=== PATIENT | male | born 1955 | race Caucasian/White ===

== ENCOUNTER 2019-09-20 08:10 | Emergency (ER) | payer OTHER ==
--- OUTSIDE RECORDS SUMMARY | 2019-09-20 08:27 | XMS REPORT ---
:1955 [facility] Address [address] [place] [address] Care Team Providers Name Role Phone EVANS MOSES Unavailable Unavailable ELIAS GARCIA Unavailable Unavailable SHADIA MISHRA Unavailable Unavailable SEPIDEH FIELDS Unavailable Unavailable Problems This patient has no known problems. Allergies, Adverse Reactions, Alerts This patient has no known allergies or adverse reactions. Medications This patient has no known medications. Results Test Description Test Time Test Comments Text Results Atomic Results Result Comments CMV PCR, QUANTITATIVE 2019-09-16 17:50:00 Test Item Value Reference Range Comments CMV VIRAL LOAD - NEGATIVE Negative or below the linear <375- >375,000 copies/ mL (BEAKER) (test yotv=3764) range of the assay (<375 copies/mL) Cytomegalovirus (CMV) infection can cause significant disease in immunosuppressed patients. However,it is common for CMV to manifest as a limited infection which is of no clinical significance in immunosuppressed patients or in healthy individuals.Viral load measurements are helpful to identify clinical CMV infection and to guide the pre-emptive management of antiviral therapy. For treatment of CMVinfection due to reactivation in transplant recipients, a threshold between 4,000 and 5,000 copies/mL is suggested. For treatment of primary CMV infection, a lower threshold can be used.CMV infection may also be monitored using weekly serial measurements. Serial measurements of CMV DNA viral load canbe evaluated by identifying a 10- fold change, as well as assessing the CMV DNA viral load and the clinical context for each patient.The plasma CMV DNA viral load was detected using quantitative polymerase chain reaction and fluorescent monitoring of a specific hybridized probe. Genetic variation and other factors can affect the accuracy of nucleic acid testing. Therefore, the results should be interpreted in light of clinical data. A negative result may not exclude the presence of CMV disease.This test was developed and its performance characteristics determined by the [facility] Pathology Department, Section of Molecular Pathology. It has not been cleared or approved by the U.S. Food and Drug Administration (FDA), since FDA approval is not required for clinical use of the test. Validation was done as required by The Clinical Laboratory Improvement Amendments of 1988.TACROLIMUS [id number] 12:09:00 Test Item Value Reference Range Comments TACROLIMUS BLOOD (BEAKER) (test ytoy=903) 7.5 ng/mL 10.0-20.0 Travel Journalist ID - [id number] 10:22:00 Test Item Value Reference Range Comments MAGNESIUM (BEAKER) (test ldqg=930) 1.9 mg/dL 1.6-2.6 Travel Journalist ID - BSCOMPREHENSIVE METABOLIC [id number] 10:22:00 Test Item Value Reference Range Comments TOTAL PROTEIN (BEAKER) 6.2 gm/dL 6.0-8.3 (test mrep=551) ALBUMIN (BEAKER) (test 4.1 g/dL 3.5-5.0 hith=7837) ALKALINE PHOSPHATASE 87 U/L 40-150 (BEAKER) (test qndc=127) BILIRUBIN TOTAL (BEAKER) 1.1 mg/dL 0.2-1.2 (test hebl=220) SODIUM (BEAKER) (test 137 meq/L 136-145 llxf=007) POTASSIUM (BEAKER) (test 3.5 meq/L 3.5-5.1 lcie=708) CHLORIDE (BEAKER) (test 100 meq/L 98-107 oxjt=267) CO2 (BEAKER) (test 28 meq/L 22-29 grzl=107) BLOOD UREA NITROGEN 17 mg/dL 7-21 (BEAKER) (test wybe=246) CREATININE (BEAKER) (test 1.03 mg/dL 0.57-1.25 oeib=077) GLUCOSE RANDOM (BEAKER) 90 mg/dL 70-105 (test xcxz=127) CALCIUM (BEAKER) (test 9.2 mg/dL 8.4-10.2 lhfq=433) AST (SGOT) (BEAKER) (test 32 U/L 5-34 jwce=217) ALT (SGPT) (BEAKER) (test 66 U/L 6-55 aulr=472) EGFR (BEAKER) (test 73 mL/min/1.73 sq m ESTIMATED GFR IS NOT rwyr=4900) ACCURATE CREATININE CLEARANCE IN PREDICTING GLOMERULAR FILTRATION RATE. ESTIMATED GFR IS NOT APPLICABLE FOR DIALYSIS PATIENTS. Travel Journalist ID - BSBILIRUBIN, [id number] 10:22:00 Test Item Value Reference Range Comments BILIRUBIN DIRECT (BEAKER) (test hfcx=696) 0.6 mg/dL 0.1-0.5 Travel Journalist ID - BSCBC W/PLT COUNT & AUTO [id number] 09:23:00 Test Item Value Reference Range Comments WHITE BLOOD CELL COUNT (BEAKER) (test vynn=984) 8.1 K/ L 3.5-10.5 RED BLOOD CELL COUNT (BEAKER) (test xwot=693) 4.59 M/ L 4.63-6.08 HEMOGLOBIN (BEAKER) (test hydn=714) 14.7 GM/DL 13.7-17.5 HEMATOCRIT (BEAKER) (test yidx=273) 44.2 % 40.1-51.0 MEAN CORPUSCULAR VOLUME (BEAKER) (test eyno=543) 96.3 fL 79.0-92.2 MEAN CORPUSCULAR HEMOGLOBIN (BEAKER) (test 32.0 pg 25.7-32.2 fasi=591) MEAN CORPUSCULAR HEMOGLOBIN CONC (BEAKER) (test 33.3 GM/DL 32.3-36.5 xsxg=855) RED CELL DISTRIBUTION WIDTH (BEAKER) (test 14.5 % 11.6-14.4 inhz=914) PLATELET COUNT (BEAKER) (test marm=081) 218 K/CU MM 150-450 MEAN PLATELET VOLUME (BEAKER) (test vwtw=113) 10.7 fL 9.4-12.4 NUCLEATED RED BLOOD CELLS (BEAKER) (test 0 /100 WBC 0-0 bouw=307) NEUTROPHILS RELATIVE PERCENT (BEAKER) (test 65 % mltn=044) LYMPHOCYTES RELATIVE PERCENT (BEAKER) (test 28 % pwjd=185) MONOCYTES RELATIVE PERCENT (BEAKER) (test 4 % ifzn=126) EOSINOPHILS RELATIVE PERCENT (BEAKER) (test 0 % nlhp=346) BASOPHILS RELATIVE PERCENT (BEAKER) (test 0 % sccf=173) NEUTROPHILS ABSOLUTE COUNT (BEAKER) (test 5.29 K/ L 1.78-5.38 ccru=427) LYMPHOCYTES ABSOLUTE COUNT (BEAKER) (test 2.28 K/ L 1.32-3.57 anry=398) MONOCYTES ABSOLUTE COUNT (BEAKER) (test 0.35 K/ L 0.30-0.82 ujkh=638) EOSINOPHILS ABSOLUTE COUNT (BEAKER) (test 0.00 K/ L 0.04-0.54 viio=456) BASOPHILS ABSOLUTE COUNT (BEAKER) (test 0.03 K/ L 0.01-0.08 qsuz=055) IMMATURE GRANULOCYTES-RELATIVE PERCENT (BEAKER) 2 % 0-1 (test psjp=2879) TACROLIMUS [id number] 14:18:00 Test Item Value Reference Range Comments TACROLIMUS BLOOD (BEAKER) (test ludz=185) 7.2 ng/mL 10.0-20.0 Travel Journalist ID - LEW [id number] 08:30:00 Test Item Value Reference Range Comments MAGNESIUM (BEAKER) (test wlze=098) 1.8 mg/dL 1.6-2.6 Travel Journalist ID - TONEY LCOMPREHENSIVE METABOLIC [id number] 08:30:00 Test Item Value Reference Range Comments TOTAL PROTEIN (BEAKER) 5.9 gm/dL 6.0-8.3 (test lufm=938) ALBUMIN (BEAKER) (test 3.9 g/dL 3.5-5.0 htoz=0818) ALKALINE PHOSPHATASE 85 U/L 40-150 (BEAKER) (test ixkd=128) BILIRUBIN TOTAL (BEAKER) 1.2 mg/dL 0.2-1.2 (test nnwc=325) SODIUM (BEAKER) (test 136 meq/L 136-145 vtdf=358) POTASSIUM (BEAKER) (test 3.2 meq/L 3.5-5.1 sgkg=749) CHLORIDE (BEAKER) (test 100 meq/L 98-107 rvrf=700) CO2 (BEAKER) (test 28 meq/L 22-29 ycho=396) BLOOD UREA NITROGEN 13 mg/dL 7-21 (BEAKER) (test hsxn=663) CREATININE (BEAKER) (test 0.95 mg/dL 0.57-1.25 utjg=727) GLUCOSE RANDOM (BEAKER) 169 mg/dL 70-105 (test urap=020) CALCIUM (BEAKER) (test 8.7 mg/dL 8.4-10.2 tbxa=976) AST (SGOT) (BEAKER) (test 27 U/L 5-34 qhmp=318) ALT (SGPT) (BEAKER) (test 59 U/L 6-55 dyel=703) EGFR (BEAKER) (test 80 mL/min/1.73 sq m ESTIMATED GFR IS NOT vwlx=3417) ACCURATE CREATININE CLEARANCE IN PREDICTING GLOMERULAR FILTRATION RATE. ESTIMATED GFR IS NOT APPLICABLE FOR DIALYSIS PATIENTS. Travel Journalist ALECIA HOUSERTIMI LBILIRUBIN, [id number] 08:30:00 Test Item Value Reference Range Comments BILIRUBIN DIRECT (BEAKER) (test hfsi=181) 0.6 mg/dL 0.1-0.5 Travel Journalist ALECIA HOUSERTIMI LCBC W/PLT COUNT & AUTO [id number] 08:02:00 Test Item Value Reference Range Comments WHITE BLOOD CELL COUNT (BEAKER) (test vkap=769) 7.6 K/ L 3.5-10.5 RED BLOOD CELL COUNT (BEAKER) (test worm=923) 4.35 M/ L 4.63-6.08 HEMOGLOBIN (BEAKER) (test yibn=893) 13.9 GM/DL 13.7-17.5 HEMATOCRIT (BEAKER) (test vbrr=086) 41.0 % 40.1-51.0 MEAN CORPUSCULAR VOLUME (BEAKER) (test qvsk=028) 94.3 fL 79.0-92.2 MEAN CORPUSCULAR HEMOGLOBIN (BEAKER) (test 32.0 pg 25.7-32.2 fydz=438) MEAN CORPUSCULAR HEMOGLOBIN CONC (BEAKER) (test 33.9 GM/DL 32.3-36.5 rvyw=606) RED CELL DISTRIBUTION WIDTH (BEAKER) (test 14.5 % 11.6-14.4 rqrn=273) PLATELET COUNT (BEAKER) (test qsax=381) 192 K/CU MM 150-450 MEAN PLATELET VOLUME (BEAKER) (test mtfb=381) 10.5 fL 9.4-12.4 NUCLEATED RED BLOOD CELLS (BEAKER) (test 0 /100 WBC 0-0 numu=439) NEUTROPHILS RELATIVE PERCENT (BEAKER) (test 68 % zajb=205) LYMPHOCYTES RELATIVE PERCENT (BEAKER) (test 25 % euea=931) MONOCYTES RELATIVE PERCENT (BEAKER) (test 6 % orov=338) EOSINOPHILS RELATIVE PERCENT (BEAKER) (test 0 % jhcv=202) BASOPHILS RELATIVE PERCENT (BEAKER) (test 1 % rgls=676) NEUTROPHILS ABSOLUTE COUNT (BEAKER) (test 5.17 K/ L 1.78-5.38 hxnx=850) LYMPHOCYTES ABSOLUTE COUNT (BEAKER) (test 1.86 K/ L 1.32-3.57 qzcd=325) MONOCYTES ABSOLUTE COUNT (BEAKER) (test 0.42 K/ L 0.30-0.82 mmcs=088) EOSINOPHILS ABSOLUTE COUNT (BEAKER) (test 0.00 K/ L 0.04-0.54 oihb=754) BASOPHILS ABSOLUTE COUNT (BEAKER) (test 0.04 K/ L 0.01-0.08 avay=237) IMMATURE GRANULOCYTES-RELATIVE PERCENT (BEAKER) 1 % 0-1 (test ksom=5088) TACROLIMUS [id number] 11:51:00 Test Item Value Reference Range Comments TACROLIMUS BLOOD (BEAKER) (test sasg=924) 7.2 ng/mL 10.0-20.0 Travel Journalist ID - [id number] 09:36:00 Test Item Value Reference Range Comments MAGNESIUM (BEAKER) (test flom=730) 2.1 mg/dL 1.6-2.6 Travel Journalist ID - DBCOMPREHENSIVE METABOLIC [id number] 09:36:00 Test Item Value Reference Range Comments TOTAL PROTEIN (BEAKER) 5.9 gm/dL 6.0-8.3 (test qokg=224) ALBUMIN (BEAKER) (test 3.8 g/dL 3.5-5.0 otgf=5562) ALKALINE PHOSPHATASE 94 U/L 40-150 (BEAKER) (test zkud=567) BILIRUBIN TOTAL (BEAKER) 1.1 mg/dL 0.2-1.2 (test owdx=207) SODIUM (BEAKER) (test 135 meq/L 136-145 coxj=501) POTASSIUM (BEAKER) (test 3.3 meq/L 3.5-5.1 xbqa=992) CHLORIDE (BEAKER) (test 98 meq/L 98-107 sitd=822) CO2 (BEAKER) (test 29 meq/L 22-29 hgxw=687) BLOOD UREA NITROGEN 20 mg/dL 7-21 (BEAKER) (test bvne=756) CREATININE (BEAKER) (test 1.20 mg/dL 0.57-1.25 rrrl=576) GLUCOSE RANDOM (BEAKER) 178 mg/dL 70-105 (test opyj=399) CALCIUM (BEAKER) (test 8.9 mg/dL 8.4-10.2 bxod=675) AST (SGOT) (BEAKER) (test 24 U/L 5-34 maif=097) ALT (SGPT) (BEAKER) (test 41 U/L 6-55 ceeh=823) EGFR (BEAKER) (test 61 mL/min/1.73 sq m ESTIMATED GFR IS NOT znjl=6317) ACCURATE CREATININE CLEARANCE IN PREDICTING GLOMERULAR FILTRATION RATE. ESTIMATED GFR IS NOT APPLICABLE FOR DIALYSIS PATIENTS. Travel Journalist ID - DBBILIRUBIN, [id number] 09:36:00 Test Item Value Reference Range Comments BILIRUBIN DIRECT (BEAKER) (test xvnl=341) 0.5 mg/dL 0.1-0.5 Travel Journalist ID - DBCBC W/PLT COUNT & AUTO [id number] 09:08:00 Test Item Value Reference Range Comments WHITE BLOOD CELL COUNT (BEAKER) (test vysh=402) 8.7 K/ L 3.5-10.5 RED BLOOD CELL COUNT (BEAKER) (test qagi=698) 4.27 M/ L 4.63-6.08 HEMOGLOBIN (BEAKER) (test rfdy=458) 13.7 GM/DL 13.7-17.5 HEMATOCRIT (BEAKER) (test itsw=008) 40.1 % 40.1-51.0 MEAN CORPUSCULAR VOLUME (BEAKER) (test abfv=855) 93.9 fL 79.0-92.2 MEAN CORPUSCULAR HEMOGLOBIN (BEAKER) (test 32.1 pg 25.7-32.2 jgdk=167) MEAN CORPUSCULAR HEMOGLOBIN CONC (BEAKER) (test 34.2 GM/DL 32.3-36.5 uodx=962) RED CELL DISTRIBUTION WIDTH (BEAKER) (test 14.6 % 11.6-14.4 jhrc=486) PLATELET COUNT (BEAKER) (test gycd=885) 196 K/CU MM 150-450 MEAN PLATELET VOLUME (BEAKER) (test jgxu=056) 10.7 fL 9.4-12.4 NUCLEATED RED BLOOD CELLS (BEAKER) (test 0 /100 WBC 0-0 whem=085) NEUTROPHILS RELATIVE PERCENT (BEAKER) (test 73 % ewmq=567) LYMPHOCYTES RELATIVE PERCENT (BEAKER) (test 20 % kujs=516) MONOCYTES RELATIVE PERCENT (BEAKER) (test 5 % vcrt=679) EOSINOPHILS RELATIVE PERCENT (BEAKER) (test 0 % dhsw=043) BASOPHILS RELATIVE PERCENT (BEAKER) (test 1 % izcp=500) NEUTROPHILS ABSOLUTE COUNT (BEAKER) (test 6.41 K/ L 1.78-5.38 lyos=180) LYMPHOCYTES ABSOLUTE COUNT (BEAKER) (test 1.78 K/ L 1.32-3.57 zxbb=328) MONOCYTES ABSOLUTE COUNT (BEAKER) (test 0.39 K/ L 0.30-0.82 gedp=669) EOSINOPHILS ABSOLUTE COUNT (BEAKER) (test 0.00 K/ L 0.04-0.54 kjmt=954) BASOPHILS ABSOLUTE COUNT (BEAKER) (test 0.06 K/ L 0.01-0.08 vfyk=379) IMMATURE GRANULOCYTES-RELATIVE PERCENT (BEAKER) 1 % 0-1 (test ebfi=9922) TACROLIMUS [id number] 10:35:00 Test Item Value Reference Range Comments TACROLIMUS BLOOD (BEAKER) (test yzrv=132) 10.2 ng/mL 10.0-20.0 [id number] 10:16:00 Test Item Value Reference Range Comments MAGNESIUM (BEAKER) (test vbew=462) 1.7 mg/dL 1.6-2.6 COMPREHENSIVE METABOLIC [id number] 10:16:00 Test Item Value Reference Range Comments TOTAL PROTEIN (BEAKER) 5.9 gm/dL 6.0-8.3 (test jvsy=720) ALBUMIN (BEAKER) (test 3.8 g/dL 3.5-5.0 vskl=9357) ALKALINE PHOSPHATASE 99 U/L 40-150 (BEAKER) (test hwmo=382) BILIRUBIN TOTAL (BEAKER) 0.8 mg/dL 0.2-1.2 (test qwyz=504) SODIUM (BEAKER) (test 137 meq/L 136-145 isoc=673) POTASSIUM (BEAKER) (test 3.7 meq/L 3.5-5.1 afyw=632) CHLORIDE (BEAKER) (test 99 meq/L 98-107 bigh=937) CO2 (BEAKER) (test 31 meq/L 22-29 uoxg=599) BLOOD UREA NITROGEN 22 mg/dL 7-21 (BEAKER) (test xami=459) CREATININE (BEAKER) (test 1.03 mg/dL 0.57-1.25 hier=765) GLUCOSE RANDOM (BEAKER) 78 mg/dL 70-105 (test ujqz=772) CALCIUM (BEAKER) (test 8.9 mg/dL 8.4-10.2 laar=976) AST (SGOT) (BEAKER) (test 19 U/L 5-34 iyqp=852) ALT (SGPT) (BEAKER) (test 39 U/L 6-55 tgya=719) EGFR (BEAKER) (test 73 mL/min/1.73 sq m ESTIMATED GFR IS NOT chbk=8672) ACCURATE CREATININE CLEARANCE IN PREDICTING GLOMERULAR FILTRATION RATE. ESTIMATED GFR IS NOT APPLICABLE FOR DIALYSIS PATIENTS. BILIRUBIN, [id number] 10:16:00 Test Item Value Reference Range Comments BILIRUBIN DIRECT (BEAKER) (test evfm=634) 0.4 mg/dL 0.1-0.5 CBC W/PLT COUNT & AUTO [id number] 08:48:00 Test Item Value Reference Range Comments WHITE BLOOD CELL COUNT (BEAKER) (test grkk=918) 10.3 K/ L 3.5-10.5 RED BLOOD CELL COUNT (BEAKER) (test imur=637) 4.32 M/ L 4.63-6.08 HEMOGLOBIN (BEAKER) (test yuos=986) 13.9 GM/DL 13.7-17.5 HEMATOCRIT (BEAKER) (test wcdk=828) 39.9 % 40.1-51.0 MEAN CORPUSCULAR VOLUME (BEAKER) (test zsjs=637) 92.4 fL 79.0-92.2 MEAN CORPUSCULAR HEMOGLOBIN (BEAKER) (test 32.2 pg 25.7-32.2 djsc=167) MEAN CORPUSCULAR HEMOGLOBIN CONC (BEAKER) (test 34.8 GM/DL 32.3-36.5 uyui=694) RED CELL DISTRIBUTION WIDTH (BEAKER) (test 14.5 % 11.6-14.4 ycro=657) PLATELET COUNT (BEAKER) (test koco=110) 180 K/CU MM 150-450 MEAN PLATELET VOLUME (BEAKER) (test geit=745) 11.0 fL 9.4-12.4 NUCLEATED RED BLOOD CELLS (BEAKER) (test 0 /100 WBC 0-0 cwwj=494) NEUTROPHILS RELATIVE PERCENT (BEAKER) (test 79 % cols=652) LYMPHOCYTES RELATIVE PERCENT (BEAKER) (test 16 % wcfo=421) MONOCYTES RELATIVE PERCENT (BEAKER) (test 4 % atpj=532) EOSINOPHILS RELATIVE PERCENT (BEAKER) (test 0 % dhft=602) BASOPHILS RELATIVE PERCENT (BEAKER) (test 0 % htwe=984) NEUTROPHILS ABSOLUTE COUNT (BEAKER) (test 8.15 K/ L 1.78-5.38 segw=583) LYMPHOCYTES ABSOLUTE COUNT (BEAKER) (test 1.61 K/ L 1.32-3.57 cpwt=925) MONOCYTES ABSOLUTE COUNT (BEAKER) (test 0.46 K/ L 0.30-0.82 hcoy=650) EOSINOPHILS ABSOLUTE COUNT (BEAKER) (test 0.00 K/ L 0.04-0.54 fcyb=230) BASOPHILS ABSOLUTE COUNT (BEAKER) (test 0.04 K/ L 0.01-0.08 mwjk=840) IMMATURE GRANULOCYTES-RELATIVE PERCENT (BEAKER) 1 % 0-1 (test fpad=1137) TACROLIMUS [id number] 15:50:00 Test Item Value Reference Range Comments TACROLIMUS BLOOD (BEAKER) (test sozw=629) 11.4 ng/mL 10.0-20.0 COMPREHENSIVE METABOLIC [id number] 12:15:00 Test Item Value Reference Range Comments TOTAL PROTEIN (BEAKER) 5.5 gm/dL 6.0-8.3 (test fjzt=206) ALBUMIN (BEAKER) (test 3.5 g/dL 3.5-5.0 fmxd=6031) ALKALINE PHOSPHATASE 102 U/L 40-150 (BEAKER) (test dalz=370) BILIRUBIN TOTAL (BEAKER) 1.1 mg/dL 0.2-1.2 (test qeti=174) SODIUM (BEAKER) (test 135 meq/L 136-145 rntq=989) POTASSIUM (BEAKER) (test 3.4 meq/L 3.5-5.1 mnwc=753) CHLORIDE (BEAKER) (test 99 meq/L 98-107 kdsc=987) CO2 (BEAKER) (test 27 meq/L 22-29 mcai=096) BLOOD UREA NITROGEN 14 mg/dL 7-21 (BEAKER) (test cvxn=356) CREATININE (BEAKER) (test 1.02 mg/dL 0.57-1.25 uycr=859) GLUCOSE RANDOM (BEAKER) 142 mg/dL 70-105 (test vmcy=186) CALCIUM (BEAKER) (test 8.5 mg/dL 8.4-10.2 myom=129) AST (SGOT) (BEAKER) (test 25 U/L 5-34 fsjp=112) ALT (SGPT) (BEAKER) (test 55 U/L 6-55 zusc=725) EGFR (BEAKER) (test 74 mL/min/1.73 sq m ESTIMATED GFR IS NOT stoq=0910) ACCURATE CREATININE CLEARANCE IN PREDICTING GLOMERULAR FILTRATION RATE. ESTIMATED GFR IS NOT APPLICABLE FOR DIALYSIS PATIENTS. [id number] 12:13:00 Test Item Value Reference Range Comments MAGNESIUM (BEAKER) (test kyfz=109) 1.6 mg/dL 1.6-2.6 [id number] 12:13:00 Test Item Value Reference Range Comments PHOSPHORUS (BEAKER) (test nlol=162) 2.9 mg/dL 2.3-4.7 BILIRUBIN, [id number] 12:13:00 Test Item Value Reference Range Comments BILIRUBIN DIRECT (BEAKER) (test pdpq=550) 0.5 mg/dL 0.1-0.5 CBC W/PLT COUNT & AUTO [id number] 11:00:00 Test Item Value Reference Range Comments WHITE BLOOD CELL COUNT (BEAKER) (test khsd=154) 9.6 K/ L 3.5-10.5 RED BLOOD CELL COUNT (BEAKER) (test vpmu=063) 4.17 M/ L 4.63-6.08 HEMOGLOBIN (BEAKER) (test iqjg=533) 13.4 GM/DL 13.7-17.5 HEMATOCRIT (BEAKER) (test dctp=662) 38.6 % 40.1-51.0 MEAN CORPUSCULAR VOLUME (BEAKER) (test wnal=908) 92.6 fL 79.0-92.2 MEAN CORPUSCULAR HEMOGLOBIN (BEAKER) (test 32.1 pg 25.7-32.2 pdvz=386) MEAN CORPUSCULAR HEMOGLOBIN CONC (BEAKER) (test 34.7 GM/DL 32.3-36.5 zufj=165) RED CELL DISTRIBUTION WIDTH (BEAKER) (test 14.5 % 11.6-14.4 nkvq=153) PLATELET COUNT (BEAKER) (test zyhc=392) 167 K/CU MM 150-450 MEAN PLATELET VOLUME (BEAKER) (test lglz=975) 11.9 fL 9.4-12.4 NUCLEATED RED BLOOD CELLS (BEAKER) (test 0 /100 WBC 0-0 gjez=769) NEUTROPHILS RELATIVE PERCENT (BEAKER) (test 74 % ukxl=844) LYMPHOCYTES RELATIVE PERCENT (BEAKER) (test 19 % cifd=128) MONOCYTES RELATIVE PERCENT (BEAKER) (test 5 % cyge=558) EOSINOPHILS RELATIVE PERCENT (BEAKER) (test 0 % qgyp=154) BASOPHILS RELATIVE PERCENT (BEAKER) (test 1 % wsdr=412) NEUTROPHILS ABSOLUTE COUNT (BEAKER) (test 7.07 K/ L 1.78-5.38 luta=498) LYMPHOCYTES ABSOLUTE COUNT (BEAKER) (test 1.87 K/ L 1.32-3.57 pyan=661) MONOCYTES ABSOLUTE COUNT (BEAKER) (test 0.52 K/ L 0.30-0.82 lpbg=678) EOSINOPHILS ABSOLUTE COUNT (BEAKER) (test 0.00 K/ L 0.04-0.54 eeus=776) BASOPHILS ABSOLUTE COUNT (BEAKER) (test 0.06 K/ L 0.01-0.08 idev=072) IMMATURE GRANULOCYTES-RELATIVE PERCENT (BEAKER) 1 % 0-1 (test pvih=8984) TACROLIMUS [id number] 11:07:00 Test Item Value Reference Range Comments TACROLIMUS BLOOD (BEAKER) (test bqkf=098) 12.1 ng/mL 10.0-20.0 [id number] 09:07:00 Test Item Value Reference Range Comments MAGNESIUM (BEAKER) (test exqy=609) 1.6 mg/dL 1.6-2.6 COMPREHENSIVE METABOLIC [id number] 09:07:00 Test Item Value Reference Range Comments TOTAL PROTEIN (BEAKER) 5.6 gm/dL 6.0-8.3 (test wpuc=079) ALBUMIN (BEAKER) (test 3.6 g/dL 3.5-5.0 mgdu=3625) ALKALINE PHOSPHATASE 117 U/L 40-150 (BEAKER) (test lsij=611) BILIRUBIN TOTAL (BEAKER) 1.5 mg/dL 0.2-1.2 (test qpgz=192) SODIUM (BEAKER) (test 136 meq/L 136-145 xlor=794) POTASSIUM (BEAKER) (test 3.7 meq/L 3.5-5.1 ktgn=931) CHLORIDE (BEAKER) (test 101 meq/L 98-107 aozg=079) CO2 (BEAKER) (test 26 meq/L 22-29 tzlx=190) BLOOD UREA NITROGEN 19 mg/dL 7-21 (BEAKER) (test aupt=394) CREATININE (BEAKER) (test 0.86 mg/dL 0.57-1.25 vuvi=352) GLUCOSE RANDOM (BEAKER) 84 mg/dL 70-105 (test mgzv=462) CALCIUM (BEAKER) (test 8.5 mg/dL 8.4-10.2 yvhm=842) AST (SGOT) (BEAKER) (test 30 U/L 5-34 ozgd=876) ALT (SGPT) (BEAKER) (test 64 U/L 6-55 mrpb=416) EGFR (BEAKER) (test 90 mL/min/1.73 sq m ESTIMATED GFR IS NOT vfzv=0279) ACCURATE CREATININE CLEARANCE IN PREDICTING GLOMERULAR FILTRATION RATE. ESTIMATED GFR IS NOT APPLICABLE FOR DIALYSIS PATIENTS. BILIRUBIN, [id number] 09:07:00 Test Item Value Reference Range Comments BILIRUBIN DIRECT (BEAKER) (test zxwo=853) 0.6 mg/dL 0.1-0.5 CBC W/PLT COUNT & AUTO [id number] 08:43:00 Test Item Value Reference Range Comments WHITE BLOOD CELL COUNT (BEAKER) (test niyo=743) 11.6 K/ L 3.5-10.5 RED BLOOD CELL COUNT (BEAKER) (test sdzt=643) 4.32 M/ L 4.63-6.08 HEMOGLOBIN (BEAKER) (test dtxp=232) 13.5 GM/DL 13.7-17.5 HEMATOCRIT (BEAKER) (test nmom=450) 39.8 % 40.1-51.0 MEAN CORPUSCULAR VOLUME (BEAKER) (test pkel=703) 92.1 fL 79.0-92.2 MEAN CORPUSCULAR HEMOGLOBIN (BEAKER) (test 31.3 pg 25.7-32.2 qfga=154) MEAN CORPUSCULAR HEMOGLOBIN CONC (BEAKER) (test 33.9 GM/DL 32.3-36.5 pjrf=084) RED CELL DISTRIBUTION WIDTH (BEAKER) (test 14.3 % 11.6-14.4 dtxp=259) PLATELET COUNT (BEAKER) (test rnbh=945) 154 K/CU MM 150-450 MEAN PLATELET VOLUME (BEAKER) (test mjie=076) 11.0 fL 9.4-12.4 NUCLEATED RED BLOOD CELLS (BEAKER) (test 0 /100 WBC 0-0 dajq=690) NEUTROPHILS RELATIVE PERCENT (BEAKER) (test 78 % gcsn=381) LYMPHOCYTES RELATIVE PERCENT (BEAKER) (test 17 % ltga=581) MONOCYTES RELATIVE PERCENT (BEAKER) (test 4 % kytf=940) EOSINOPHILS RELATIVE PERCENT (BEAKER) (test 0 % mqst=562) BASOPHILS RELATIVE PERCENT (BEAKER) (test 1 % lcpq=881) NEUTROPHILS ABSOLUTE COUNT (BEAKER) (test 9.03 K/ L 1.78-5.38 mjbw=949) LYMPHOCYTES ABSOLUTE COUNT (BEAKER) (test 1.95 K/ L 1.32-3.57 kasa=513) MONOCYTES ABSOLUTE COUNT (BEAKER) (test 0.46 K/ L 0.30-0.82 icqs=105) EOSINOPHILS ABSOLUTE COUNT (BEAKER) (test 0.00 K/ L 0.04-0.54 mnnv=649) BASOPHILS ABSOLUTE COUNT (BEAKER) (test 0.07 K/ L 0.01-0.08 pgtc=903) IMMATURE GRANULOCYTES-RELATIVE PERCENT (BEAKER) 0 % 0-1 (test mzgo=4932) TACROLIMUS [id number] 11:34:00 Test Item Value Reference Range Comments TACROLIMUS BLOOD (BEAKER) (test ebcx=689) 12.9 ng/mL 10.0-20.0 CBC W/PLT COUNT & AUTO [id number] 09:33:00 Test Item Value Reference Range Comments WHITE BLOOD CELL COUNT (BEAKER) (test guly=328) 12.0 K/ L 3.5-10.5 RED BLOOD CELL COUNT (BEAKER) (test rwav=362) 4.42 M/ L 4.63-6.08 HEMOGLOBIN (BEAKER) (test iuzb=671) 14.0 GM/DL 13.7-17.5 HEMATOCRIT (BEAKER) (test dpxs=300) 41.6 % 40.1-51.0 MEAN CORPUSCULAR VOLUME (BEAKER) (test afuq=224) 94.1 fL 79.0-92.2 MEAN CORPUSCULAR HEMOGLOBIN (BEAKER) (test 31.7 pg 25.7-32.2 jcsr=322) MEAN CORPUSCULAR HEMOGLOBIN CONC (BEAKER) (test 33.7 GM/DL 32.3-36.5 bapq=897) RED CELL DISTRIBUTION WIDTH (BEAKER) (test 14.6 % 11.6-14.4 kiwt=492) PLATELET COUNT (BEAKER) (test kswo=072) 168 K/CU MM 150-450 MEAN PLATELET VOLUME (BEAKER) (test dmzl=346) 11.8 fL 9.4-12.4 NUCLEATED RED BLOOD CELLS (BEAKER) (test 0 /100 WBC 0-0 yquh=771) NEUTROPHILS RELATIVE PERCENT (BEAKER) (test 79 % uaro=993) LYMPHOCYTES RELATIVE PERCENT (BEAKER) (test 16 % vjbd=224) MONOCYTES RELATIVE PERCENT (BEAKER) (test 4 % ltuo=428) EOSINOPHILS RELATIVE PERCENT (BEAKER) (test 0 % nuuz=066) BASOPHILS RELATIVE PERCENT (BEAKER) (test 1 % xvhy=041) NEUTROPHILS ABSOLUTE COUNT (BEAKER) (test 9.51 K/ L 1.78-5.38 mlyz=265) LYMPHOCYTES ABSOLUTE COUNT (BEAKER) (test 1.88 K/ L 1.32-3.57 vcga=783) MONOCYTES ABSOLUTE COUNT (BEAKER) (test 0.47 K/ L 0.30-0.82 asss=386) EOSINOPHILS ABSOLUTE COUNT (BEAKER) (test 0.00 K/ L 0.04-0.54 bdrd=679) BASOPHILS ABSOLUTE COUNT (BEAKER) (test 0.10 K/ L 0.01-0.08 acdh=484) IMMATURE GRANULOCYTES-RELATIVE PERCENT (BEAKER) 0 % 0-1 (test wpdm=2427) [id number] 09:11:00 Test Item Value Reference Range Comments MAGNESIUM (BEAKER) (test tfme=914) 1.7 mg/dL 1.6-2.6 COMPREHENSIVE METABOLIC [id number] 09:11:00 Test Item Value Reference Range Comments TOTAL PROTEIN (BEAKER) 5.9 gm/dL 6.0-8.3 (test pbss=698) ALBUMIN (BEAKER) (test 3.9 g/dL 3.5-5.0 napb=0327) ALKALINE PHOSPHATASE 129 U/L 40-150 (BEAKER) (test ukut=214) BILIRUBIN TOTAL (BEAKER) 1.4 mg/dL 0.2-1.2 (test wzoy=834) SODIUM (BEAKER) (test 140 meq/L 136-145 vazs=388) POTASSIUM (BEAKER) (test 4.0 meq/L 3.5-5.1 uqyx=481) CHLORIDE (BEAKER) (test 102 meq/L 98-107 xpit=188) CO2 (BEAKER) (test 31 meq/L 22-29 eecj=487) BLOOD UREA NITROGEN 27 mg/dL 7-21 (BEAKER) (test rdwf=536) CREATININE (BEAKER) (test 0.94 mg/dL 0.57-1.25 uhnm=484) GLUCOSE RANDOM (BEAKER) 129 mg/dL 70-105 (test mguk=018) CALCIUM (BEAKER) (test 8.9 mg/dL 8.4-10.2 bbaq=452) AST (SGOT) (BEAKER) (test 27 U/L 5-34 mwnt=436) ALT (SGPT) (BEAKER) (test 67 U/L 6-55 zdgt=448) EGFR (BEAKER) (test 81 mL/min/1.73 sq m ESTIMATED GFR IS NOT gfxm=2095) ACCURATE CREATININE CLEARANCE IN PREDICTING GLOMERULAR FILTRATION RATE. ESTIMATED GFR IS NOT APPLICABLE FOR DIALYSIS PATIENTS. BILIRUBIN, [id number] 09:11:00 Test Item Value Reference Range Comments BILIRUBIN DIRECT (BEAKER) (test gqnz=367) 0.6 mg/dL 0.1-0.5 TACROLIMUS [id number] 10:30:00 Test Item Value Reference Range Comments TACROLIMUS BLOOD (BEAKER) (test wwsn=693) 11.8 ng/mL 10.0-20.0 [id number] 09:55:00 Test Item Value Reference Range Comments PHOSPHORUS (BEAKER) (test iqko=464) 3.0 mg/dL 2.3-4.7 [id number] 09:55:00 Test Item Value Reference Range Comments MAGNESIUM (BEAKER) (test jiiq=720) 1.7 mg/dL 1.6-2.6 COMPREHENSIVE METABOLIC [id number] 09:55:00 Test Item Value Reference Range Comments TOTAL PROTEIN (BEAKER) 5.7 gm/dL 6.0-8.3 (test iwkk=346) ALBUMIN (BEAKER) (test 3.7 g/dL 3.5-5.0 vukp=8671) ALKALINE PHOSPHATASE 135 U/L 40-150 (BEAKER) (test olgk=680) BILIRUBIN TOTAL (BEAKER) 1.3 mg/dL 0.2-1.2 (test toek=678) SODIUM (BEAKER) (test 137 meq/L 136-145 ioqy=038) POTASSIUM (BEAKER) (test 3.8 meq/L 3.5-5.1 jpsd=448) CHLORIDE (BEAKER) (test 101 meq/L 98-107 jltt=643) CO2 (BEAKER) (test 29 meq/L 22-29 bnzc=961) BLOOD UREA NITROGEN 25 mg/dL 7-21 (BEAKER) (test tjzb=310) CREATININE (BEAKER) (test 1.13 mg/dL 0.57-1.25 eiax=755) GLUCOSE RANDOM (BEAKER) 129 mg/dL 70-105 (test axmo=370) CALCIUM (BEAKER) (test 8.5 mg/dL 8.4-10.2 xeik=853) AST (SGOT) (BEAKER) (test 29 U/L 5-34 atqb=217) ALT (SGPT) (BEAKER) (test 65 U/L 6-55 lbuu=292) EGFR (BEAKER) (test 66 mL/min/1.73 sq m ESTIMATED GFR IS NOT scxv=8828) ACCURATE CREATININE CLEARANCE IN PREDICTING GLOMERULAR FILTRATION RATE. ESTIMATED GFR IS NOT APPLICABLE FOR DIALYSIS PATIENTS. BILIRUBIN, [id number] 09:55:00 Test Item Value Reference Range Comments BILIRUBIN DIRECT (BEAKER) (test xner=859) 0.6 mg/dL 0.1-0.5 VITAMIN D, [id number] 09:42:00 Test Item Value Reference Range Comments VITAMIN D 25-OH (BEAKER) (test tsqm=9842) 20.3 ng/mL 6.6-49.9 Effective 06/04/2017: Reference Range ChangeNew: 6.6-49.9 ng/mL Previous: 13.0 -47.8 ng/mLRecommended Vitamin D Target Range: 30.0-40.0 ng/mLCBC W/PLT COUNT & amp; AUTO [id number] 09:19:00 Test Item Value Reference Range Comments WHITE BLOOD CELL COUNT (BEAKER) (test hdyb=002) 12.7 K/ L 3.5-10.5 RED BLOOD CELL COUNT (BEAKER) (test hjlc=573) 4.38 M/ L 4.63-6.08 HEMOGLOBIN (BEAKER) (test wngn=513) 13.9 GM/DL 13.7-17.5 HEMATOCRIT (BEAKER) (test yhtm=947) 41.0 % 40.1-51.0 MEAN CORPUSCULAR VOLUME (BEAKER) (test qesp=212) 93.6 fL 79.0-92.2 MEAN CORPUSCULAR HEMOGLOBIN (BEAKER) (test 31.7 pg 25.7-32.2 qyse=561) MEAN CORPUSCULAR HEMOGLOBIN CONC (BEAKER) (test 33.9 GM/DL 32.3-36.5 gxvt=785) RED CELL DISTRIBUTION WIDTH (BEAKER) (test 14.6 % 11.6-14.4 aobv=041) PLATELET COUNT (BEAKER) (test nple=602) 162 K/CU MM 150-450 MEAN PLATELET VOLUME (BEAKER) (test ngjn=568) 12.1 fL 9.4-12.4 NUCLEATED RED BLOOD CELLS (BEAKER) (test 0 /100 WBC 0-0 hzhm=576) NEUTROPHILS RELATIVE PERCENT (BEAKER) (test 78 % rigj=616) LYMPHOCYTES RELATIVE PERCENT (BEAKER) (test 17 % gyer=932) MONOCYTES RELATIVE PERCENT (BEAKER) (test 4 % lyxi=196) EOSINOPHILS RELATIVE PERCENT (BEAKER) (test 0 % dntt=008) BASOPHILS RELATIVE PERCENT (BEAKER) (test 1 % mbzr=945) NEUTROPHILS ABSOLUTE COUNT (BEAKER) (test 9.87 K/ L 1.78-5.38 ydgn=598) LYMPHOCYTES ABSOLUTE COUNT (BEAKER) (test 2.11 K/ L 1.32-3.57 cdwh=020) MONOCYTES ABSOLUTE COUNT (BEAKER) (test 0.55 K/ L 0.30-0.82 kyqd=073) EOSINOPHILS ABSOLUTE COUNT (BEAKER) (test 0.00 K/ L 0.04-0.54 zrek=544) BASOPHILS ABSOLUTE COUNT (BEAKER) (test 0.12 K/ L 0.01-0.08 gphb=220) IMMATURE GRANULOCYTES-RELATIVE PERCENT (BEAKER) 1 % 0-1 (test ifcy=2587) BLOOD [id number] 15:25:00 Test Item Value Reference Range Comments CULTURE (BEAKER) (test iiia=4233) No growth in 5 days POCT-GLUCOSE [id number] 12:30:00 Test Item Value Reference Range Comments POC-GLUCOSE METER ([facility]) 167 mg/dL 70-110 : TESTED AT [address] (test rnol=6901) [facility], [facility]: Travel Journalist/[employer] DL=[id number] for CARBAJAL, WISAM TACROLIMUS [id number] 09:42:00 Test Item Value Reference Range Comments TACROLIMUS BLOOD (BEAKER) (test ghpm=379) 8.6 ng/mL 10.0-20.0 POCT-GLUCOSE [id number] 07:53:00 Test Item Value Reference Range Comments POC-GLUCOSE METER ([facility]) 102 mg/dL 70-110 : TESTED AT [address] (test nsvf=1254) [facility], [address]: Travel Journalist/Band Saw Operator [employer] RT=[id number] for CARBAJAL, WISAM [id number] 06:44:00 Test Item Value Reference Range Comments PHOSPHORUS (BEAKER) (test jvdo=479) 2.8 mg/dL 2.3-4.7 [id number] 06:44:00 Test Item Value Reference Range Comments MAGNESIUM (BEAKER) (test cjep=531) 1.7 mg/dL 1.6-2.6 BASIC METABOLIC [id number] 06:44:00 Test Item Value Reference Range Comments SODIUM (BEAKER) (test 138 meq/L 136-145 jcoi=551) POTASSIUM (BEAKER) (test 3.2 meq/L 3.5-5.1 aexp=212) CHLORIDE (BEAKER) (test 104 meq/L 98-107 mdvl=452) CO2 (BEAKER) (test 28 meq/L 22-29 orei=782) BLOOD UREA NITROGEN 22 mg/dL 7-21 (BEAKER) (test jdvg=542) CREATININE (BEAKER) (test 0.72 mg/dL 0.57-1.25 fviv=145) GLUCOSE RANDOM (BEAKER) 112 mg/dL 70-105 (test vtyd=779) CALCIUM (BEAKER) (test 8.0 mg/dL 8.4-10.2 qfgs=403) EGFR (BEAKER) (test 111 mL/min/1.73 sq m ESTIMATED GFR IS NOT yowq=7345) ACCURATE CREATININE CLEARANCE IN PREDICTING GLOMERULAR FILTRATION RATE. ESTIMATED GFR IS NOT APPLICABLE FOR DIALYSIS PATIENTS. HEPATIC FUNCTION [id number] 06:44:00 Test Item Value Reference Range Comments TOTAL PROTEIN (BEAKER) (test sehw=490) 4.9 gm/dL 6.0-8.3 ALBUMIN (BEAKER) (test vyof=6404) 3.1 g/dL 3.5-5.0 BILIRUBIN TOTAL (BEAKER) (test cwct=963) 1.0 mg/dL 0.2-1.2 BILIRUBIN DIRECT (BEAKER) (test osvw=283) 0.5 mg/dL 0.1-0.5 ALKALINE PHOSPHATASE (BEAKER) (test yaaf=797) 106 U/L 40-150 AST (SGOT) (BEAKER) (test ywun=883) 22 U/L 5-34 ALT (SGPT) (BEAKER) (test xftg=984) 58 U/L 6-55 PROTHROMBIN TIME/[id number] 06:28:00 Test Item Value Reference Range Comments PROTIME (BEAKER) (test nutn=486) 15.8 seconds 11.9-14.2 INR (BEAKER) (test rlti=761) 1.3 <=5.9 Effective 01/20/2019: PT Reference Range ChangeNew: 11.9-14.2 Previous: 11.7- 14.7RECOMMENDED COUMADIN/WARFARIN INR THERAPY RANGESSTANDARD DOSE: 2.0-3.0 Includes: PROPHYLAXIS for venous thrombosis, systemic embolization; TREATMENT for venous thrombosis and/or pulmonary embolus.HIGH RISK: Target INR is2.5-3.5 for patients wiht mechanical heart valves.[id number] 06:28:00 Test Item Value Reference Range Comments PARTIAL THROMBOPLASTIN TIME (BEAKER) (test 31.6 seconds 22.5-36.0 njon=437) CBC W/PLT COUNT & AUTO [id number] 06:22:00 Test Item Value Reference Range Comments WHITE BLOOD CELL COUNT (BEAKER) (test hzot=376) 9.5 K/ L 3.5-10.5 RED BLOOD CELL COUNT (BEAKER) (test msfx=611) 3.90 M/ L 4.63-6.08 HEMOGLOBIN (BEAKER) (test ccpm=424) 12.4 GM/DL 13.7-17.5 HEMATOCRIT (BEAKER) (test xezf=920) 36.4 % 40.1-51.0 MEAN CORPUSCULAR VOLUME (BEAKER) (test vsyi=117) 93.3 fL 79.0-92.2 MEAN CORPUSCULAR HEMOGLOBIN (BEAKER) (test 31.8 pg 25.7-32.2 lmav=119) MEAN CORPUSCULAR HEMOGLOBIN CONC (BEAKER) (test 34.1 GM/DL 32.3-36.5 jcrc=381) RED CELL DISTRIBUTION WIDTH (BEAKER) (test 14.4 % 11.6-14.4 fpcu=290) PLATELET COUNT (BEAKER) (test jluu=232) 112 K/CU MM 150-450 MEAN PLATELET VOLUME (BEAKER) (test cdwh=937) 11.6 fL 9.4-12.4 NUCLEATED RED BLOOD CELLS (BEAKER) (test 0 /100 WBC 0-0 ztnk=522) NEUTROPHILS RELATIVE PERCENT (BEAKER) (test 77 % zibc=357) LYMPHOCYTES RELATIVE PERCENT (BEAKER) (test 16 % wwcc=593) MONOCYTES RELATIVE PERCENT (BEAKER) (test 5 % jroz=180) EOSINOPHILS RELATIVE PERCENT (BEAKER) (test 0 % snkf=306) BASOPHILS RELATIVE PERCENT (BEAKER) (test 1 % vonb=440) NEUTROPHILS ABSOLUTE COUNT (BEAKER) (test 7.36 K/ L 1.78-5.38 gupb=037) LYMPHOCYTES ABSOLUTE COUNT (BEAKER) (test 1.51 K/ L 1.32-3.57 ddlb=277) MONOCYTES ABSOLUTE COUNT (BEAKER) (test 0.48 K/ L 0.30-0.82 xacv=998) EOSINOPHILS ABSOLUTE COUNT (BEAKER) (test 0.00 K/ L 0.04-0.54 eawz=999) BASOPHILS ABSOLUTE COUNT (BEAKER) (test 0.11 K/ L 0.01-0.08 chsz=587) IMMATURE GRANULOCYTES-RELATIVE PERCENT (BEAKER) 0 % 0-1 (test ucae=7833) POCT-GLUCOSE [id number] 22:08:00 Test Item Value Reference Range Comments POC-GLUCOSE METER (BEAKER) 207 mg/dL 70-110 : TESTED AT [address] (test yljd=6490) [facility], [address]: Travel Journalist/[employer] AE=[id number] for RORO CORDOVA POCT-GLUCOSE [id number] 17:36:00 Test Item Value Reference Range Comments POC-GLUCOSE METER (BEAKER) 158 mg/dL 70-110 : Notified RN/MD: TESTED AT (test lafh=2165) [address], [address]: Travel Journalist/[employer] Operator [employer] CW=[id number] for AUBREE MARES RAD, ABDOMEN/KUB, 1 VIEW [id number] 16:10:00Referring: Dr. Baltazar Rivera for exam:->nausea with po intake. Assess bowel gas pattern, size of stomach bubble, and potential intraabdominal abnormalitiesFINAL REPORT Comparison: 08/11/2019 Discussion: Abdomen: Bowel gas pattern is nonobstructed. There is no free intraperitoneal air. No soft tissue abnormalities. Regional skeletal structures are unremarkable. Again identified are surgical philly over the abdomen as well as a radiopaque density in the right upper quadrant similar in appearance to previous. Impression: 1. Nonspecific bowel gas pattern. No significant change from previous Signed: Christopher Dan Verified Date/Time: 08/17/2019 16:10:39 Reading Location: [facility] Radiology Reading Room POCT-GLUCOSE [id number] 12:44:00 Test Item Value Reference Range Comments POC-GLUCOSE METER (BEAKER) 137 mg/dL 70-110 : Notified RN/MD: TESTED AT (test amyb=3591) [facility] [address] [facility], [address]: Travel Journalist/Band Saw Operator [employer] GB=[id number] for AUBREE MARES TACROLIMUS [id number] 09:20:00 Test Item Value Reference Range Comments TACROLIMUS BLOOD (BEAKER) (test jsxm=295) 9.3 ng/mL 10.0-20.0 POCT-GLUCOSE [id number] 08:15:00 Test Item Value Reference Range Comments POC-GLUCOSE METER (BEAKER) 91 mg/dL 70-110 : Notified RN/MD: TESTED AT (test bhce=0845) [facility] [address] [facility], [address]: Travel Journalist/Band Saw Operator [employer] IS=[id number] for HUGO MARESED BASIC METABOLIC [id number] 06:54:00 Test Item Value Reference Range Comments SODIUM (BEAKER) (test 137 meq/L 136-145 mwgj=523) POTASSIUM (BEAKER) (test 3.2 meq/L 3.5-5.1 hfzo=855) CHLORIDE (BEAKER) (test 104 meq/L 98-107 vteg=526) CO2 (BEAKER) (test 26 meq/L 22-29 wsgn=016) BLOOD UREA NITROGEN 19 mg/dL 7-21 (BEAKER) (test zdsz=582) CREATININE (BEAKER) (test 0.64 mg/dL 0.57-1.25 llhw=015) GLUCOSE RANDOM (BEAKER) 102 mg/dL 70-105 (test dixk=733) CALCIUM (BEAKER) (test 7.8 mg/dL 8.4-10.2 avib=606) EGFR (BEAKER) (test 127 mL/min/1.73 sq m ESTIMATED GFR IS NOT ctwg=6650) ACCURATE CREATININE CLEARANCE IN PREDICTING GLOMERULAR FILTRATION RATE. ESTIMATED GFR IS NOT APPLICABLE FOR DIALYSIS PATIENTS. [id number] 06:48:00 Test Item Value Reference Range Comments PHOSPHORUS (BEAKER) (test kfku=041) 2.6 mg/dL 2.3-4.7 [id number] 06:48:00 Test Item Value Reference Range Comments MAGNESIUM (BEAKER) (test qggo=033) 1.7 mg/dL 1.6-2.6 HEPATIC FUNCTION [id number] 06:48:00 Test Item Value Reference Range Comments TOTAL PROTEIN (BEAKER) (test nvbm=234) 5.0 gm/dL 6.0-8.3 ALBUMIN (BEAKER) (test vixx=0233) 3.0 g/dL 3.5-5.0 BILIRUBIN TOTAL (BEAKER) (test zevd=296) 0.8 mg/dL 0.2-1.2 BILIRUBIN DIRECT (BEAKER) (test dabj=993) 0.4 mg/dL 0.1-0.5 ALKALINE PHOSPHATASE (BEAKER) (test ykvk=679) 107 U/L 40-150 AST (SGOT) (BEAKER) (test xmeq=591) 24 U/L 5-34 ALT (SGPT) (BEAKER) (test tuna=385) 64 U/L 6-55 [id number] 06:09:00 Test Item Value Reference Range Comments PARTIAL THROMBOPLASTIN TIME (BEAKER) (test 32.9 seconds 22.5-36.0 ebzd=171) PROTHROMBIN [id number] 06:08:00 Test Item Value Reference Range Comments PROTIME (BEAKER) (test miub=637) 15.3 seconds 11.9-14.2 INR (BEAKER) (test urkp=893) 1.3 <=5.9 Effective 01/20/2019: PT Reference Range ChangeNew: 11.9-14.2 Previous: 11.7- 14.7RECOMMENDED COUMADIN/WARFARIN INR THERAPY RANGESSTANDARD DOSE: 2.0-3.0 Includes: PROPHYLAXIS for venous thrombosis, systemic embolization; TREATMENT for venous thrombosis and/or pulmonary embolus.HIGH RISK: Target INR is2.5-3.5 for patients wiht mechanical heart valves.CBC W/PLT COUNT & AUTO [id number] 05:53:00 Test Item Value Reference Range Comments WHITE BLOOD CELL COUNT (BEAKER) (test gsxv=486) 9.4 K/ L 3.5-10.5 RED BLOOD CELL COUNT (BEAKER) (test xjqy=939) 3.99 M/ L 4.63-6.08 HEMOGLOBIN (BEAKER) (test pikw=370) 12.5 GM/DL 13.7-17.5 HEMATOCRIT (BEAKER) (test xkjn=801) 36.9 % 40.1-51.0 MEAN CORPUSCULAR VOLUME (BEAKER) (test tndk=957) 92.5 fL 79.0-92.2 MEAN CORPUSCULAR HEMOGLOBIN (BEAKER) (test 31.3 pg 25.7-32.2 qnef=822) MEAN CORPUSCULAR HEMOGLOBIN CONC (BEAKER) (test 33.9 GM/DL 32.3-36.5 lequ=568) RED CELL DISTRIBUTION WIDTH (BEAKER) (test 13.9 % 11.6-14.4 sgrl=219) PLATELET COUNT (BEAKER) (test hdlt=001) 132 K/CU MM 150-450 MEAN PLATELET VOLUME (BEAKER) (test owxt=014) 11.5 fL 9.4-12.4 NUCLEATED RED BLOOD CELLS (BEAKER) (test 0 /100 WBC 0-0 jqlu=371) NEUTROPHILS RELATIVE PERCENT (BEAKER) (test 80 % haux=020) LYMPHOCYTES RELATIVE PERCENT (BEAKER) (test 14 % kssx=592) MONOCYTES RELATIVE PERCENT (BEAKER) (test 5 % rash=386) EOSINOPHILS RELATIVE PERCENT (BEAKER) (test 0 % xoks=736) BASOPHILS RELATIVE PERCENT (BEAKER) (test 1 % pczv=243) NEUTROPHILS ABSOLUTE COUNT (BEAKER) (test 7.47 K/ L 1.78-5.38 dzsz=192) LYMPHOCYTES ABSOLUTE COUNT (BEAKER) (test 1.29 K/ L 1.32-3.57 klqv=169) MONOCYTES ABSOLUTE COUNT (BEAKER) (test 0.48 K/ L 0.30-0.82 heoh=978) EOSINOPHILS ABSOLUTE COUNT (BEAKER) (test 0.00 K/ L 0.04-0.54 uwsa=441) BASOPHILS ABSOLUTE COUNT (BEAKER) (test 0.06 K/ L 0.01-0.08 mirh=034) IMMATURE GRANULOCYTES-RELATIVE PERCENT (BEAKER) 1 % 0-1 (test uwym=8004) POCT-GLUCOSE [id number] 22:05:00 Test Item Value Reference Range Comments POC-GLUCOSE METER (BEAKER) 218 mg/dL 70-110 : TESTED AT [address] (test vgjx=7896) [facility], [address]: Travel Journalist/[employer] ND=[id number] for SAHRA IVY POCT-GLUCOSE [id number] 18:19:00 Test Item Value Reference Range Comments POC-GLUCOSE METER (BEAKER) 238 mg/dL 70-110 : TESTED AT [address] (test ogvo=5708) [facility], [address]: Travel Journalist/[employer] AS=[id number] for AJAY KEYS POCT-GLUCOSE [id number] 14:03:00 Test Item Value Reference Range Comments POC-GLUCOSE METER (BEAKER) 214 mg/dL 70-110 : TESTED AT [address] (test hyfj=6679) [facility], [address]: Travel Journalist/[employer] PI=[id number] for ALBERT HORVATH BLOOD [id number] 14:00:00 Test Item Value Reference Range Comments CULTURE (BEAKER) (test danm=4248) No growth in 5 days POCT-GLUCOSE [id number] 09:12:00 Test Item Value Reference Range Comments POC-GLUCOSE METER (BEAKER) 268 mg/dL 70-110 : TESTED AT [address] (test ydej=9362) [facility], [address]: Travel Journalist/[employer] IS=[id number] for JADYN BALLESTEROS TACROLIMUS [id number] 08:51:00 Test Item Value Reference Range Comments TACROLIMUS BLOOD (BEAKER) (test foky=585) 6.0 ng/mL 10.0-20.0 POCT-GLUCOSE [id number] 07:53:00 Test Item Value Reference Range Comments POC-GLUCOSE METER (BEAKER) 172 mg/dL 70-110 : TESTED AT [address] (test vfvh=9760) [facility], [address]: Travel Journalist/[employer] Operator [employer] DF=[id number] for AJAY KEYS OVA AND PARASITE [id number] 07:31:00 Test Item Value Reference Range Comments DIRECT SMEAR - O\\T\\P No ova or parasites seen No ova or parasites seen (BEAKER) (test gvze=054) CONCENTRATE SMEAR - O\\T\\P No ova or parasites seen No ova or parasites seen (BEAKER) (test sfiw=635) TRICHROME SMEAR - O\\T\\P No ova or parasites seen No ova or parasites seen (BEAKER) (test zbrp=416) TSH/FREE T4 IF [id number] 06:30:00 Test Item Value Reference Range Comments THYROID STIMULATING HORMONE (BEAKER) (test 1.24 uIU/mL 0.35-4.94 gjzl=131) BASIC METABOLIC [id number] 06:11:00 Test Item Value Reference Range Comments SODIUM (BEAKER) (test 135 meq/L 136-145 jtsn=039) POTASSIUM (BEAKER) (test 3.2 meq/L 3.5-5.1 diiv=013) CHLORIDE (BEAKER) (test 102 meq/L 98-107 yqas=992) CO2 (BEAKER) (test 26 meq/L 22-29 kwqm=584) BLOOD UREA NITROGEN 18 mg/dL 7-21 (BEAKER) (test aron=038) CREATININE (BEAKER) (test 0.77 mg/dL 0.57-1.25 yuau=766) GLUCOSE RANDOM (BEAKER) 181 mg/dL 70-105 (test plkx=933) CALCIUM (BEAKER) (test 7.9 mg/dL 8.4-10.2 wycp=678) EGFR (BEAKER) (test 102 mL/min/1.73 sq m ESTIMATED GFR IS NOT eqvx=4521) ACCURATE CREATININE CLEARANCE IN PREDICTING GLOMERULAR FILTRATION RATE. ESTIMATED GFR IS NOT APPLICABLE FOR DIALYSIS PATIENTS. [id number] 06:10:00 Test Item Value Reference Range Comments PHOSPHORUS (BEAKER) (test hvib=968) 1.6 mg/dL 2.3-4.7 [id number] 06:10:00 Test Item Value Reference Range Comments MAGNESIUM (BEAKER) (test abmo=978) 1.7 mg/dL 1.6-2.6 HEPATIC FUNCTION [id number] 06:10:00 Test Item Value Reference Range Comments TOTAL PROTEIN (BEAKER) (test mgzm=332) 5.0 gm/dL 6.0-8.3 ALBUMIN (BEAKER) (test rtrg=2848) 3.1 g/dL 3.5-5.0 BILIRUBIN TOTAL (BEAKER) (test vwia=182) 0.7 mg/dL 0.2-1.2 BILIRUBIN DIRECT (BEAKER) (test bzfq=318) 0.3 mg/dL 0.1-0.5 ALKALINE PHOSPHATASE (BEAKER) (test kygv=235) 103 U/L 40-150 AST (SGOT) (BEAKER) (test roor=218) 23 U/L 5-34 ALT (SGPT) (BEAKER) (test ibxj=186) 64 U/L 6-55 [id number] 06:10:00 Test Item Value Reference Range Comments PREALBUMIN (BEAKER) (test 22 mg/dL 14-45 Specimen slightly hemolyzed cuyg=296) IMMUNOGLOBULIN G (IGG)[id number] 06:10:00 Test Item Value Reference Range Comments IMMUNOGLOBULIN G (IGG) (BEAKER) (test vwrw=503) 449 mg/dL 540-1,822 PROTHROMBIN TIME/[id number] 05:31:00 Test Item Value Reference Range Comments PROTIME (BEAKER) (test fpgg=513) 15.5 seconds 11.9-14.2 INR (BEAKER) (test cqni=305) 1.3 <=5.9 Effective 01/20/2019: PT Reference Range ChangeNew: 11.9-14.2 Previous: 11.7- 14.7RECOMMENDED COUMADIN/WARFARIN INR THERAPY RANGESSTANDARD DOSE: 2.0-3.0 Includes: PROPHYLAXIS for venous thrombosis, systemic embolization; TREATMENT for venous thrombosis and/or pulmonary embolus.HIGH RISK: Target INR is2.5-3.5 for patients wiht mechanical heart valves.[id number] 05:31:00 Test Item Value Reference Range Comments PARTIAL THROMBOPLASTIN TIME (BEAKER) (test 33.4 seconds 22.5-36.0 xajv=190) CBC W/PLT COUNT & AUTO [id number] 05:25:00 Test Item Value Reference Range Comments WHITE BLOOD CELL COUNT (BEAKER) (test wpmf=367) 10.3 K/ L 3.5-10.5 RED BLOOD CELL COUNT (BEAKER) (test snct=080) 3.91 M/ L 4.63-6.08 HEMOGLOBIN (BEAKER) (test jwxe=098) 12.3 GM/DL 13.7-17.5 HEMATOCRIT (BEAKER) (test dmpm=626) 36.4 % 40.1-51.0 MEAN CORPUSCULAR VOLUME (BEAKER) (test jpbk=446) 93.1 fL 79.0-92.2 MEAN CORPUSCULAR HEMOGLOBIN (BEAKER) (test 31.5 pg 25.7-32.2 lrql=985) MEAN CORPUSCULAR HEMOGLOBIN CONC (BEAKER) (test 33.8 GM/DL 32.3-36.5 ttfx=554) RED CELL DISTRIBUTION WIDTH (BEAKER) (test 13.9 % 11.6-14.4 whgr=625) PLATELET COUNT (BEAKER) (test nwff=232) 122 K/CU MM 150-450 MEAN PLATELET VOLUME (BEAKER) (test cbyb=364) 11.4 fL 9.4-12.4 NUCLEATED RED BLOOD CELLS (BEAKER) (test 0 /100 WBC 0-0 wtcf=179) NEUTROPHILS RELATIVE PERCENT (BEAKER) (test 81 % xzck=701) LYMPHOCYTES RELATIVE PERCENT (BEAKER) (test 12 % rqtz=030) MONOCYTES RELATIVE PERCENT (BEAKER) (test 5 % umub=859) EOSINOPHILS RELATIVE PERCENT (BEAKER) (test 0 % nase=238) BASOPHILS RELATIVE PERCENT (BEAKER) (test 1 % gduy=149) NEUTROPHILS ABSOLUTE COUNT (BEAKER) (test 8.37 K/ L 1.78-5.38 oqbr=207) LYMPHOCYTES ABSOLUTE COUNT (BEAKER) (test 1.23 K/ L 1.32-3.57 cznb=864) MONOCYTES ABSOLUTE COUNT (BEAKER) (test 0.52 K/ L 0.30-0.82 scju=152) EOSINOPHILS ABSOLUTE COUNT (BEAKER) (test 0.00 K/ L 0.04-0.54 tdmg=731) BASOPHILS ABSOLUTE COUNT (BEAKER) (test 0.12 K/ L 0.01-0.08 nfox=235) IMMATURE GRANULOCYTES-RELATIVE PERCENT (BEAKER) 1 % 0-1 (test qhjf=5992) POCT-GLUCOSE [id number] 21:04:00 Test Item Value Reference Range Comments POC-GLUCOSE METER (BEAKER) 232 mg/dL 70-110 : TESTED AT [facility] [address] (test nvyr=6267) [facility], [address]: Travel Journalist/[employer] HE=[id number] for TIERRA BLAKE POCT-GLUCOSE [id number] 18:19:00 Test Item Value Reference Range Comments POC-GLUCOSE METER (BEAKER) 235 mg/dL 70-110 : Notified RN/MD: TESTED AT (test hbzs=7376) [facility] [address] [facility], [address]: Travel Journalist/Band Saw Operator [employer] JP=[id number] for HUGO MARESED POCT-GLUCOSE [id number] 12:21:00 Test Item Value Reference Range Comments POC-GLUCOSE METER (BEAKER) 169 mg/dL 70-110 : Notified RN/MD: TESTED AT (test cbqk=2024) [address], [address]: Travel Journalist/Band Saw Operator [employer] VU=[id number] for MARES, AUBREE POCT-GLUCOSE [id number] 09:50:00 Test Item Value Reference Range Comments POC-GLUCOSE METER (BEAKER) 178 mg/dL 70-110 : Notified RN/MD: TESTED AT (test gcpl=7357) [address], [address]: Travel Journalist/[employer] Saw Operator [employer] OX=[id number] for MARES, AUBREE TACROLIMUS [id number] 09:21:00 Test Item Value Reference Range Comments TACROLIMUS BLOOD (BEAKER) (test hgco=033) 5.8 ng/mL 10.0-20.0 BLOOD [id number] 08:00:00 Test Item Value Reference Range Comments CULTURE (BEAKER) (test tfpk=2987) No growth in 5 days BASIC METABOLIC [id number] 06:34:00 Test Item Value Reference Range Comments SODIUM (BEAKER) (test 136 meq/L 136-145 gvyy=138) POTASSIUM (BEAKER) (test 3.3 meq/L 3.5-5.1 xxlr=871) CHLORIDE (BEAKER) (test 105 meq/L 98-107 pyzi=584) CO2 (BEAKER) (test 27 meq/L 22-29 ojwg=340) BLOOD UREA NITROGEN 18 mg/dL 7-21 (BEAKER) (test xugp=324) CREATININE (BEAKER) (test 0.75 mg/dL 0.57-1.25 xiof=798) GLUCOSE RANDOM (BEAKER) 131 mg/dL 70-105 (test nrsa=547) CALCIUM (BEAKER) (test 7.7 mg/dL 8.4-10.2 qstp=682) EGFR (BEAKER) (test 106 mL/min/1.73 sq m ESTIMATED GFR IS NOT tlnm=1235) ACCURATE CREATININE CLEARANCE IN PREDICTING GLOMERULAR FILTRATION RATE. ESTIMATED GFR IS NOT APPLICABLE FOR DIALYSIS PATIENTS. [id number] 06:33:00 Test Item Value Reference Range Comments PHOSPHORUS (BEAKER) (test cnhn=481) 1.5 mg/dL 2.3-4.7 [id number] 06:25:00 Test Item Value Reference Range Comments MAGNESIUM (BEAKER) (test avqy=536) 1.6 mg/dL 1.6-2.6 HEPATIC FUNCTION [id number] 06:25:00 Test Item Value Reference Range Comments TOTAL PROTEIN (BEAKER) (test riph=819) 4.9 gm/dL 6.0-8.3 ALBUMIN (BEAKER) (test aghu=5409) 3.0 g/dL 3.5-5.0 BILIRUBIN TOTAL (BEAKER) (test uris=143) 0.6 mg/dL 0.2-1.2 BILIRUBIN DIRECT (BEAKER) (test nthj=994) 0.3 mg/dL 0.1-0.5 ALKALINE PHOSPHATASE (BEAKER) (test fdzv=725) 94 U/L 40-150 AST (SGOT) (BEAKER) (test ujte=247) 24 U/L 5-34 ALT (SGPT) (BEAKER) (test nbie=333) 73 U/L 6-55 [id number] 05:51:00 Test Item Value Reference Range Comments PARTIAL THROMBOPLASTIN TIME (BEAKER) (test 31.7 seconds 22.5-36.0 haox=162) PROTHROMBIN [id number] 05:49:00 Test Item Value Reference Range Comments PROTIME (BEAKER) (test eiui=287) 15.5 seconds 11.9-14.2 INR (BEAKER) (test qycu=862) 1.3 <=5.9 Effective 01/20/2019: PT Reference Range ChangeNew: 11.9-14.2 Previous: 11.7- 14.7RECOMMENDED COUMADIN/WARFARIN INR THERAPY RANGESSTANDARD DOSE: 2.0-3.0 Includes: PROPHYLAXIS for venous thrombosis, systemic embolization; TREATMENT for venous thrombosis and/or pulmonary embolus.HIGH RISK: Target INR is2.5-3.5 for patients wiht mechanical heart valves.CBC W/PLT COUNT & AUTO [id number] 05:44:00 Test Item Value Reference Range Comments WHITE BLOOD CELL COUNT (BEAKER) (test cqiu=996) 12.1 K/ L 3.5-10.5 RED BLOOD CELL COUNT (BEAKER) (test hpex=437) 3.81 M/ L 4.63-6.08 HEMOGLOBIN (BEAKER) (test tdrm=608) 12.0 GM/DL 13.7-17.5 HEMATOCRIT (BEAKER) (test dzwq=930) 35.4 % 40.1-51.0 MEAN CORPUSCULAR VOLUME (BEAKER) (test tvmc=889) 92.9 fL 79.0-92.2 MEAN CORPUSCULAR HEMOGLOBIN (BEAKER) (test 31.5 pg 25.7-32.2 ryvv=458) MEAN CORPUSCULAR HEMOGLOBIN CONC (BEAKER) (test 33.9 GM/DL 32.3-36.5 jfin=041) RED CELL DISTRIBUTION WIDTH (BEAKER) (test 13.7 % 11.6-14.4 dgvj=286) PLATELET COUNT (BEAKER) (test zgxy=611) 122 K/CU MM 150-450 MEAN PLATELET VOLUME (BEAKER) (test qdrm=172) 11.6 fL 9.4-12.4 NUCLEATED RED BLOOD CELLS (BEAKER) (test 0 /100 WBC 0-0 djlc=798) NEUTROPHILS RELATIVE PERCENT (BEAKER) (test 82 % mlxr=247) LYMPHOCYTES RELATIVE PERCENT (BEAKER) (test 12 % ahnn=214) MONOCYTES RELATIVE PERCENT (BEAKER) (test 4 % frdj=216) EOSINOPHILS RELATIVE PERCENT (BEAKER) (test 0 % cmas=539) BASOPHILS RELATIVE PERCENT (BEAKER) (test 1 % twow=080) NEUTROPHILS ABSOLUTE COUNT (BEAKER) (test 10.00 K/ L 1.78-5.38 dnqq=971) LYMPHOCYTES ABSOLUTE COUNT (BEAKER) (test 1.45 K/ L 1.32-3.57 qcav=317) MONOCYTES ABSOLUTE COUNT (BEAKER) (test 0.52 K/ L 0.30-0.82 axan=310) EOSINOPHILS ABSOLUTE COUNT (BEAKER) (test 0.00 K/ L 0.04-0.54 ojby=855) BASOPHILS ABSOLUTE COUNT (BEAKER) (test 0.10 K/ L 0.01-0.08 lrfk=176) IMMATURE GRANULOCYTES-RELATIVE PERCENT (BEAKER) 1 % 0-1 (test fmkh=4453) POCT-GLUCOSE [id number] 21:05:00 Test Item Value Reference Range Comments POC-GLUCOSE METER (BEAKER) 190 mg/dL 70-110 : TESTED AT [address] (test mrup=2050) [facility], [address]: Travel Journalist/[employer] SX=[id number] for TIERRA BLAKE POCT-GLUCOSE [id number] 17:42:00 Test Item Value Reference Range Comments POC-GLUCOSE METER (BEAKER) 213 mg/dL 70-110 : TESTED AT [address] (test fdat=0531) [facility], [address]: Travel Journalist/[employer] DO=[id number] for PRITESH BRAULIO POCT-GLUCOSE [id number] 12:33:00 Test Item Value Reference Range Comments POC-GLUCOSE METER (BEAKER) 173 mg/dL 70-110 : TESTED AT [address] (test bjrl=7214) [facility], [address]: Travel Journalist/Band [employer] GE=[id number] for PRITESH, BRAULIO BLOOD [id number] 10:00:00 Test Item Value Reference Range Comments CULTURE (BEAKER) (test jzad=4077) No growth in 5 days VANCOMYCIN LEVEL, [id number] 09:47:00 Test Item Value Reference Range Comments VANCOMYCIN TROUGH (BEAKER) (test zbpq=064) 10.5 ug/mL 10.0-20.0 TACROLIMUS [id number] 09:02:00 Test Item Value Reference Range Comments TACROLIMUS BLOOD (BEAKER) (test dehq=831) 6.1 ng/mL 10.0-20.0 BLOOD [id number] 09:01:00 Test Item Value Reference Range Comments CULTURE (BEAKER) (test fuuu=0420) No growth in 5 days BLOOD [id number] 09:01:00 Test Item Value Reference Range Comments CULTURE (BEAKER) (test rdxl=9434) No growth in 5 days POCT-GLUCOSE [id number] 08:32:00 Test Item Value Reference Range Comments POC-GLUCOSE METER (BEAKER) 137 mg/dL 70-110 : TESTED AT [address] (test qypx=8290) [facility], [address]: Travel Journalist/[employer] IL=[id number] for BRAULIO JONAS BASIC METABOLIC [id number] 07:15:00 Test Item Value Reference Range Comments SODIUM (BEAKER) (test 135 meq/L 136-145 zyzx=768) POTASSIUM (BEAKER) (test 3.4 meq/L 3.5-5.1 Specimen slightly mpao=146) hemolyzed CHLORIDE (BEAKER) (test 104 meq/L 98-107 knso=838) CO2 (BEAKER) (test 25 meq/L 22-29 bnhg=076) BLOOD UREA NITROGEN 18 mg/dL 7-21 (BEAKER) (test jjdx=289) CREATININE (BEAKER) (test 0.77 mg/dL 0.57-1.25 Specimen slightly fycv=534) hemolyzed GLUCOSE RANDOM (BEAKER) 149 mg/dL 70-105 (test auou=535) CALCIUM (BEAKER) (test 7.8 mg/dL 8.4-10.2 hysi=557) EGFR (BEAKER) (test 102 mL/min/1.73 sq m ESTIMATED GFR IS NOT yveu=3375) ACCURATE CREATININE CLEARANCE IN PREDICTING GLOMERULAR FILTRATION RATE. ESTIMATED GFR IS NOT APPLICABLE FOR DIALYSIS PATIENTS. [id number] 07:11:00 Test Item Value Reference Range Comments MAGNESIUM (BEAKER) (test 1.8 mg/dL 1.6-2.6 Specimen slightly hemolyzed nhqt=230) [id number] 07:11:00 Test Item Value Reference Range Comments PHOSPHORUS (BEAKER) (test 1.7 mg/dL 2.3-4.7 Specimen slightly hemolyzed jpgw=428) HEPATIC FUNCTION [id number] 07:11:00 Test Item Value Reference Range Comments TOTAL PROTEIN (BEAKER) (test 5.0 gm/dL 6.0-8.3 Specimen slightly hemolyzed syrc=308) ALBUMIN (BEAKER) (test 3.1 g/dL 3.5-5.0 Specimen slightly hemolyzed zlzt=5324) BILIRUBIN TOTAL (BEAKER) (test 0.7 mg/dL 0.2-1.2 Specimen slightly hemolyzed pxny=406) BILIRUBIN DIRECT (BEAKER) (test 0.3 mg/dL 0.1-0.5 Specimen slightly hemolyzed iryy=613) ALKALINE PHOSPHATASE (BEAKER) 93 U/L 40-150 (test jrrr=470) AST (SGOT) (BEAKER) (test 28 U/L 5-34 Specimen slightly hemolyzed fgof=121) ALT (SGPT) (BEAKER) (test 93 U/L 6-55 Specimen slightly hemolyzed kxho=309) CBC W/PLT COUNT & AUTO [id number] 06:38:00 Test Item Value Reference Range Comments WHITE BLOOD CELL COUNT (BEAKER) (test bgxt=309) 14.0 K/ L 3.5-10.5 RED BLOOD CELL COUNT (BEAKER) (test bvzm=668) 3.87 M/ L 4.63-6.08 HEMOGLOBIN (BEAKER) (test jnvy=536) 12.1 GM/DL 13.7-17.5 HEMATOCRIT (BEAKER) (test oyup=755) 36.1 % 40.1-51.0 MEAN CORPUSCULAR VOLUME (BEAKER) (test zxbe=436) 93.3 fL 79.0-92.2 MEAN CORPUSCULAR HEMOGLOBIN (BEAKER) (test 31.3 pg 25.7-32.2 idfs=405) MEAN CORPUSCULAR HEMOGLOBIN CONC (BEAKER) (test 33.5 GM/DL 32.3-36.5 rkif=868) RED CELL DISTRIBUTION WIDTH (BEAKER) (test 13.7 % 11.6-14.4 evkh=767) PLATELET COUNT (BEAKER) (test ncer=277) 154 K/CU MM 150-450 MEAN PLATELET VOLUME (BEAKER) (test djbe=095) 11.5 fL 9.4-12.4 NUCLEATED RED BLOOD CELLS (BEAKER) (test 0 /100 WBC 0-0 lrwu=194) NEUTROPHILS RELATIVE PERCENT (BEAKER) (test 81 % ldhx=597) LYMPHOCYTES RELATIVE PERCENT (BEAKER) (test 13 % vacz=333) MONOCYTES RELATIVE PERCENT (BEAKER) (test 4 % kmzf=697) EOSINOPHILS RELATIVE PERCENT (BEAKER) (test 0 % ppse=234) BASOPHILS RELATIVE PERCENT (BEAKER) (test 1 % aagn=638) NEUTROPHILS ABSOLUTE COUNT (BEAKER) (test 11.35 K/ L 1.78-5.38 fcch=048) LYMPHOCYTES ABSOLUTE COUNT (BEAKER) (test 1.83 K/ L 1.32-3.57 oynt=567) MONOCYTES ABSOLUTE COUNT (BEAKER) (test 0.58 K/ L 0.30-0.82 fvim=685) EOSINOPHILS ABSOLUTE COUNT (BEAKER) (test 0.00 K/ L 0.04-0.54 bemp=399) BASOPHILS ABSOLUTE COUNT (BEAKER) (test 0.11 K/ L 0.01-0.08 yskr=707) IMMATURE GRANULOCYTES-RELATIVE PERCENT (BEAKER) 1 % 0-1 (test lmuv=1831) [id number] 06:35:00 Test Item Value Reference Range Comments PARTIAL THROMBOPLASTIN TIME (BEAKER) (test 35.1 seconds 22.5-36.0 nebr=525) PROTHROMBIN [id number] 06:34:00 Test Item Value Reference Range Comments PROTIME (BEAKER) (test tpdl=510) 15.8 seconds 11.9-14.2 INR (BEAKER) (test llez=202) 1.3 <=5.9 Effective 01/20/2019: PT Reference Range ChangeNew: 11.9-14.2 Previous: 11.7- 14.7RECOMMENDED COUMADIN/WARFARIN INR THERAPY RANGESSTANDARD DOSE: 2.0-3.0 Includes: PROPHYLAXIS for venous thrombosis, systemic embolization; TREATMENT for venous thrombosis and/or pulmonary embolus.HIGH RISK: Target INR is2.5-3.5 for patients wiht mechanical heart valves.POCT-GLUCOSE [id number] 21:35:00 Test Item Value Reference Range Comments POC-GLUCOSE METER (BEAKER) 188 mg/dL 70-110 : TESTED AT [address] (test ulsk=1647) [facility], [address]: Travel Journalist/[employer] Operator [employer] II=[id number] for TIERRA BLAKE EBV VIRAL [id number] 18:08:00 Test Item Value Reference Range Comments EBV VIRAL LOAD - NEGATIVE Negative or below the linear (BEAKER) (test fzqn=4742) range of the assay (<500 copies/mL) This assay was performed by real-time PCR for the detection of the Elver-Welsh virus (EBV) gene EBNA-1. The test is composed of (1) DNA extraction from patient specimen, and (2) real-time PCR amplification and detection with EBNA-1- specific primers and probes. A well-conserved region of the EBNA-1 gene is targeted, along with an internal control sequence used to confirm PCR amplification. Asymptomatic carriers and viral genetic variation, among other factors, can affect the accuracy of nucleic acid testing; therefore, results should be interpreted in light of clinical data.This test was developedand its performance characteristics determined by the [facility] Pathology Department, Section of Molecular Pathology. It has not been cleared or approved by the U.S. Food and Drug Administration (FDA), since FDA approval is not required for clinical use of the test. Validation was doneas required by The Clinical Laboratory Improvement Amendments of 1988.TISSUE [id number] 17: 12:00Surgical Pathology Report Case: [id number] Authorizing Provider: Dav Palmer MD Collected: 08/12/2019 181 Ordering Location: [address] Received: 08/13/2019 0814 Pathologist: Kay Wallace MD Specimen: Stomach, Antrum, routine pathology r/o H. Pylori STOMACH, ANTRUM, BIOPSY: - CHRONIC INACTIVE GASTRITIS, MILD - NEGATIVE FOR H. PYLORI BY WARTHIN-STARRY STAIN Signing Pathologist Direct Phone Line: [phone] signed by Kay Wallace MD on 08/13 at 5:12 [id number], [id number] pathology r/o H. Pylori, abdominal painstomach antrumSpecimen labeled as "gastric antrum" consists of two pieces of white/salgado tissue measuring 0.4 x 0.2 x 0.1 cmin aggregates. The specimen is submitted entirely in A1. Performed.The interpretation of this case included the use of immunohistochemistry or special stains.Control Slides Examined: In- house known positive controls were evaluated along with the test tissue. These control slides run alongside of thepatients sample show appropriate staining. Internal positive and negative controls when available are evaluated Immunohistochemistry technical testing was performed at [facility],Pathology Laboratory where it was developed and its performance characteristics were determined. It has not been cleared or approved by the U.S. Food and Drug Administration. The FDA has determined that such clearance or approval is not necessary. The test is used for clinical purposes. It should not be regarded as investigational or for research. This laboratory is certified under the Clinical Laboratory Improvement Amendments of 1988 (CLIA-88 ) as qualified to perform high complexity clinical laboratory testing.[place]- StarryPOCT-GLUCOSE [id number] 16:57:00 Test Item Value Reference Range Comments POC-GLUCOSE METER (BEAKER) 232 mg/dL 70-110 : TESTED AT [facility] [address] (test tnbn=2418) [facility], [address]: Travel Journalist/[employer] SW=[id number] for BRAULIO JONAS POCT-GLUCOSE [id number] 12:44:00 Test Item Value Reference Range Comments POC-GLUCOSE METER (BEAKER) 256 mg/dL 70-110 : TESTED AT [address] (test mvma=8193) [facility], [address]: Travel Journalist/[employer] Operator [employer] IF=[id number] for BRAULIO JONAS URINE [id number] 11:15:00 Test Item Value Reference Range Comments CULTURE (BEAKER) (test hygi=1197) No growth TACROLIMUS [id number] 10:56:00 Test Item Value Reference Range Comments TACROLIMUS BLOOD (BEAKER) (test wdjp=666) 8.2 ng/mL 10.0-20.0 SPUTUM CULTURE + GRAM [id number] 10:02:00 Test Item Value Reference Range Comments CULTURE (BEAKER) (test 4+ Normal respiratory lucy ugtq=7745) present GRAM STAIN RESULT (BEAKER) <1+ WBCs (test osrg=1891) GRAM STAIN RESULT (BEAKER) 20-25 epithelial cells (test yqht=80280) GRAM STAIN RESULT (BEAKER) <1+ gram negative rods (test eexl=50557) GRAM STAIN RESULT (BEAKER) <1+ gram negative cocci (test yclz=770729) GRAM STAIN RESULT (BEAKER) <1+ gram positive cocci in pairs (test wlat=529757) [id number] 08:06:00 Test Item Value Reference Range Comments PHOSPHORUS (BEAKER) (test 1.4 mg/dL 2.3-4.7 Specimen slightly hemolyzed fhsf=086) POCT-GLUCOSE [id number] 08:01:00 Test Item Value Reference Range Comments POC-GLUCOSE METER (BEAKER) 199 mg/dL 70-110 : TESTED AT [place] [id number] [facility] [facility] (test yfdd=6035) [facility], [address]: Travel Journalist/[employer] Operator [employer] BF=696138 for ALLISON SOTO CBC W/PLT COUNT & AUTO [id number] 07:16:00 Test Item Value Reference Range Comments WHITE BLOOD CELL COUNT (BEAKER) (test gynf=993) 16.0 K/ L 3.5-10.5 RED BLOOD CELL COUNT (BEAKER) (test zvdf=363) 4.18 M/ L 4.63-6.08 HEMOGLOBIN (BEAKER) (test nruu=752) 13.2 GM/DL 13.7-17.5 HEMATOCRIT (BEAKER) (test wifl=436) 38.9 % 40.1-51.0 MEAN CORPUSCULAR VOLUME (BEAKER) (test edup=294) 93.1 fL 79.0-92.2 MEAN CORPUSCULAR HEMOGLOBIN (BEAKER) (test 31.6 pg 25.7-32.2 kris=707) MEAN CORPUSCULAR HEMOGLOBIN CONC (BEAKER) (test 33.9 GM/DL 32.3-36.5 feuz=542) RED CELL DISTRIBUTION WIDTH (BEAKER) (test 13.6 % 11.6-14.4 wawo=215) PLATELET COUNT (BEAKER) (test dgcs=813) 192 K/CU MM 150-450 MEAN PLATELET VOLUME (BEAKER) (test obhi=684) 11.7 fL 9.4-12.4 NUCLEATED RED BLOOD CELLS (BEAKER) (test 0 /100 WBC 0-0 eifj=770) NEUTROPHILS RELATIVE PERCENT (BEAKER) (test 82 % tafr=074) LYMPHOCYTES RELATIVE PERCENT (BEAKER) (test 12 % rhlm=426) MONOCYTES RELATIVE PERCENT (BEAKER) (test 5 % jock=010) EOSINOPHILS RELATIVE PERCENT (BEAKER) (test 0 % ghkd=110) BASOPHILS RELATIVE PERCENT (BEAKER) (test 1 % cesy=514) NEUTROPHILS ABSOLUTE COUNT (BEAKER) (test 13.08 K/ L 1.78-5.38 ijjd=948) LYMPHOCYTES ABSOLUTE COUNT (BEAKER) (test 1.91 K/ L 1.32-3.57 dzdd=378) MONOCYTES ABSOLUTE COUNT (BEAKER) (test 0.73 K/ L 0.30-0.82 jyna=234) EOSINOPHILS ABSOLUTE COUNT (BEAKER) (test 0.00 K/ L 0.04-0.54 baud=736) BASOPHILS ABSOLUTE COUNT (BEAKER) (test 0.10 K/ L 0.01-0.08 aigd=398) IMMATURE GRANULOCYTES-RELATIVE PERCENT (BEAKER) 1 % 0-1 (test fajn=1049) [id number] 06:56:00 Test Item Value Reference Range Comments MAGNESIUM (BEAKER) (test 1.5 mg/dL 1.6-2.6 Specimen slightly hemolyzed rcsp=752) BASIC METABOLIC [id number] 06:56:00 Test Item Value Reference Range Comments SODIUM (BEAKER) (test 136 meq/L 136-145 lrbx=198) POTASSIUM (BEAKER) (test 3.7 meq/L 3.5-5.1 Specimen slightly irwy=207) hemolyzed CHLORIDE (BEAKER) (test 104 meq/L 98-107 cmvl=919) CO2 (BEAKER) (test 25 meq/L 22-29 ctdd=750) BLOOD UREA NITROGEN 21 mg/dL 7-21 (BEAKER) (test sboe=680) CREATININE (BEAKER) (test 0.86 mg/dL 0.57-1.25 Specimen slightly lava=598) hemolyzed GLUCOSE RANDOM (BEAKER) 225 mg/dL 70-105 (test losr=943) CALCIUM (BEAKER) (test 8.1 mg/dL 8.4-10.2 bdrw=687) EGFR (BEAKER) (test 90 mL/min/1.73 sq m ESTIMATED GFR IS NOT ugqx=9943) ACCURATE CREATININE CLEARANCE IN PREDICTING GLOMERULAR FILTRATION RATE. ESTIMATED GFR IS NOT APPLICABLE FOR DIALYSIS PATIENTS. HEPATIC FUNCTION [id number] 06:56:00 Test Item Value Reference Range Comments TOTAL PROTEIN (BEAKER) (test 5.5 gm/dL 6.0-8.3 Specimen slightly hemolyzed sbcy=033) ALBUMIN (BEAKER) (test 3.4 g/dL 3.5-5.0 Specimen slightly hemolyzed bnwe=5330) BILIRUBIN TOTAL (BEAKER) (test 0.8 mg/dL 0.2-1.2 Specimen slightly hemolyzed vtty=960) BILIRUBIN DIRECT (BEAKER) (test 0.3 mg/dL 0.1-0.5 Specimen slightly hemolyzed dice=090) ALKALINE PHOSPHATASE (BEAKER) 107 U/L 40-150 (test fgsw=296) AST (SGOT) (BEAKER) (test 39 U/L 5-34 Specimen slightly hemolyzed dzon=373) ALT (SGPT) (BEAKER) (test 132 U/L 6-55 Specimen slightly hemolyzed civd=781) [id number] 06:56:00 Test Item Value Reference Range Comments AMYLASE (BEAKER) (test ejyg=324) 34 U/L 25-125 Specimen slightly hemolyzed [id number] 06:56:00 Test Item Value Reference Range Comments LIPASE (BEAKER) (test jqsk=468) 37 U/L 8-78 PROTHROMBIN [id number] 06:36:00 Test Item Value Reference Range Comments PROTIME (BEAKER) (test yecr=516) 15.1 seconds 11.9-14.2 INR (BEAKER) (test xgem=791) 1.3 <=5.9 Effective 01/20/2019: PT Reference Range ChangeNew: 11.9-14.2 Previous: 11.7- 14.7RECOMMENDED COUMADIN/WARFARIN INR THERAPY RANGESSTANDARD DOSE: 2.0-3.0 Includes: PROPHYLAXIS for venous thrombosis, systemic embolization; TREATMENT for venous thrombosis and/or pulmonary embolus.HIGH RISK: Target INR is2.5-3.5 for patients wiht mechanical heart valves.[id number] 06:36:00 Test Item Value Reference Range Comments PARTIAL THROMBOPLASTIN TIME (BEAKER) (test 29.3 seconds 22.5-36.0 iion=368) POCT-GLUCOSE [id number] 21:37:00 Test Item Value Reference Range Comments POC-GLUCOSE METER (BEAKER) 258 mg/dL 70-110 : TESTED AT [facility] [address] (test tcvj=9216) [facility], [address]: Travel Journalist/[employer] IS=[id number] for TIERRA BLAKE CMV PCR, [id number] 13:27:00 Test Item Value Reference Range Comments CMV VIRAL LOAD - NEGATIVE Negative or below the linear (BEAKER) (test kooa=0640) range of the assay (<375 copies/mL) Cytomegalovirus (CMV) infection can cause significant disease in immunosuppressed patients. However,it is common for CMV to manifest as a limited infection which is of no clinical significance in immunosuppressed patients or in healthy individuals.Viral load measurements are helpful to identify clinical CMV infection and to guide the pre-emptive management of antiviral therapy. For treatment of CMVinfection due to reactivation in transplant recipients, a threshold between 4,000 and 5,000 copies/mL is suggested. For treatment of primary CMV infection, a lower threshold can be used.CMV infection may also be monitored using weekly serial measurements. Serial measurements of CMV DNA viral load canbe evaluated by identifying a 10- fold change, as well as assessing the CMV DNA viral load and the clinical context for each patient.The plasma CMV DNA viral load was detected using quantitative polymerase chain reaction and fluorescent monitoring of a specific hybridized probe. Genetic variation and other factors can affect the accuracy of nucleic acid testing. Therefore, the results should be interpreted in light of clinical data. A negative result may not exclude the presence of CMV disease.This test was developed and its performance characteristics determined by the [facility] Pathology Department, Section of Molecular Pathology. It has not been cleared or approved by the U.S. Food and Drug Administration (FDA), since FDA approval is not required for clinical use of the test. Validation was done as required by The Clinical Laboratory Improvement Amendments of 1988.POCT-GLUCOSE [id number] 12:43:00 Test Item Value Reference Range Comments POC-GLUCOSE METER 261 mg/dL 70-110 : TESTED AT [address] [place]) (test qffe=2936) [facility], [address]: Travel Journalist/[employer] LM=[id number] for YANELI TREJO TACROLIMUS [id number] 11:21:00 Test Item Value Reference Range Comments [facility] (test bavf=842) 8.1 ng/mL 10.0-20.0 POCT-GLUCOSE [id number] 11:15:00 Test Item Value Reference Range Comments POC-GLUCOSE METER 195 mg/dL 70-110 : TESTED [facility] [place] [address] [facility] (test mlnq=1016) [facility], [address]: Travel Journalist/[employer] MO=[id number] for YANELI TREJO POCT-GLUCOSE [id number] 11:06:00 Test Item Value Reference Range Comments POC-GLUCOSE METER ([place]) 92 mg/dL 70-110 : TESTED AT [facility] [address] (test ywem=8909) [facility], [address]: Travel Journalist/[employer] Saw Operator [employer] CG=[id number] for TIERRA BLAKE POCT-GLUCOSE [id number] 11:04:00 Test Item Value Reference Range Comments POC-GLUCOSE METER (BEAKER) 96 mg/dL 70-110 : TESTED AT [address] (test oncj=7952) [facility], [address]: Travel Journalist/[employer] Operator [employer] YV=[id number] for MARY ADA POCT-GLUCOSE [id number] 11:00:00 Test Item Value Reference Range Comments POC-GLUCOSE METER (BEAKER) 88 mg/dL 70-110 : TESTED AT [address] (test tlet=5983) [facility], [address]: Travel Journalist/[employer] SG=[id number] for TIERRA BLAKE [id number] 07:54:00 Test Item Value Reference Range Comments MAGNESIUM (BEAKER) (test 1.9 mg/dL 1.6-2.6 Specimen slightly hemolyzed reig=837) [id number] 07:54:00 Test Item Value Reference Range Comments PHOSPHORUS (BEAKER) (test 2.7 mg/dL 2.3-4.7 Specimen slightly hemolyzed iant=230) BASIC METABOLIC [id number] 07:54:00 Test Item Value Reference Range Comments SODIUM (BEAKER) (test 136 meq/L 136-145 zryh=332) POTASSIUM (BEAKER) (test 3.8 meq/L 3.5-5.1 Specimen slightly omvo=625) hemolyzed CHLORIDE (BEAKER) (test 102 meq/L 98-107 irky=195) CO2 (BEAKER) (test 27 meq/L 22-29 asso=755) BLOOD UREA NITROGEN 20 mg/dL 7-21 (BEAKER) (test mhoj=638) CREATININE (BEAKER) (test 0.84 mg/dL 0.57-1.25 Specimen slightly dhgn=664) hemolyzed GLUCOSE RANDOM (BEAKER) 170 mg/dL 70-105 (test bfgt=351) CALCIUM (BEAKER) (test 8.4 mg/dL 8.4-10.2 nkya=940) EGFR (BEAKER) (test 93 mL/min/1.73 sq m ESTIMATED GFR IS NOT empd=9311) ACCURATE CREATININE CLEARANCE IN PREDICTING GLOMERULAR FILTRATION RATE. ESTIMATED GFR IS NOT APPLICABLE FOR DIALYSIS PATIENTS. HEPATIC FUNCTION [id number] 07:54:00 Test Item Value Reference Range Comments TOTAL PROTEIN (BEAKER) (test 5.7 gm/dL 6.0-8.3 Specimen slightly hemolyzed xlic=485) ALBUMIN (BEAKER) (test 3.6 g/dL 3.5-5.0 Specimen slightly hemolyzed vmyf=0682) BILIRUBIN TOTAL (BEAKER) (test 1.0 mg/dL 0.2-1.2 Specimen slightly hemolyzed nuce=014) BILIRUBIN DIRECT (BEAKER) (test 0.4 mg/dL 0.1-0.5 Specimen slightly hemolyzed xkpk=866) ALKALINE PHOSPHATASE (BEAKER) 123 U/L 40-150 (test jtwy=235) AST (SGOT) (BEAKER) (test 67 U/L 5-34 Specimen slightly hemolyzed lpfz=149) ALT (SGPT) (BEAKER) (test 176 U/L 6-55 Specimen slightly hemolyzed fvlo=431) [id number] 06:57:00 Test Item Value Reference Range Comments PARTIAL THROMBOPLASTIN TIME (BEAKER) (test 30.4 seconds 22.5-36.0 mpvk=190) PROTHROMBIN [id number] 06:56:00 Test Item Value Reference Range Comments PROTIME (BEAKER) (test bcbv=707) 15.1 seconds 11.9-14.2 INR (BEAKER) (test ebnd=412) 1.3 <=5.9 Effective 01/20/2019: PT Reference Range ChangeNew: 11.9-14.2 Previous: 11.7- 14.7RECOMMENDED COUMADIN/WARFARIN INR THERAPY RANGESSTANDARD DOSE: 2.0-3.0 Includes: PROPHYLAXIS for venous thrombosis, systemic embolization; TREATMENT for venous thrombosis and/or pulmonary embolus.HIGH RISK: Target INR is2.5-3.5 for patients wiht mechanical heart valves.CBC W/PLT COUNT & AUTO [id number] 06:47:00 Test Item Value Reference Range Comments WHITE BLOOD CELL COUNT (BEAKER) (test zdbe=785) 17.9 K/ L 3.5-10.5 RED BLOOD CELL COUNT (BEAKER) (test drcm=646) 4.30 M/ L 4.63-6.08 HEMOGLOBIN (BEAKER) (test ygxs=410) 13.6 GM/DL 13.7-17.5 HEMATOCRIT (BEAKER) (test hnil=409) 39.9 % 40.1-51.0 MEAN CORPUSCULAR VOLUME (BEAKER) (test qhul=880) 92.8 fL 79.0-92.2 MEAN CORPUSCULAR HEMOGLOBIN (BEAKER) (test 31.6 pg 25.7-32.2 drzz=467) MEAN CORPUSCULAR HEMOGLOBIN CONC (BEAKER) (test 34.1 GM/DL 32.3-36.5 dstl=819) RED CELL DISTRIBUTION WIDTH (BEAKER) (test 13.9 % 11.6-14.4 wxdj=748) PLATELET COUNT (BEAKER) (test uamc=189) 196 K/CU MM 150-450 MEAN PLATELET VOLUME (BEAKER) (test drgs=147) 12.0 fL 9.4-12.4 NUCLEATED RED BLOOD CELLS (BEAKER) (test 0 /100 WBC 0-0 ttzz=892) NEUTROPHILS RELATIVE PERCENT (BEAKER) (test 77 % mmwc=053) LYMPHOCYTES RELATIVE PERCENT (BEAKER) (test 15 % nciy=499) MONOCYTES RELATIVE PERCENT (BEAKER) (test 5 % wqls=148) EOSINOPHILS RELATIVE PERCENT (BEAKER) (test 0 % gvej=392) BASOPHILS RELATIVE PERCENT (BEAKER) (test 1 % zlmo=080) NEUTROPHILS ABSOLUTE COUNT (BEAKER) (test 13.75 K/ L 1.78-5.38 xvjj=908) LYMPHOCYTES ABSOLUTE COUNT (BEAKER) (test 2.72 K/ L 1.32-3.57 whvz=663) MONOCYTES ABSOLUTE COUNT (BEAKER) (test 0.88 K/ L 0.30-0.82 lgfp=341) EOSINOPHILS ABSOLUTE COUNT (BEAKER) (test 0.00 K/ L 0.04-0.54 xblw=386) BASOPHILS ABSOLUTE COUNT (BEAKER) (test 0.15 K/ L 0.01-0.08 zvpx=904) IMMATURE GRANULOCYTES-RELATIVE PERCENT (BEAKER) 2 % 0-1 (test lnol=9486) POCT-GLUCOSE [id number] 16:53:00 Test Item Value Reference Range Comments POC-GLUCOSE METER (BEAKER) 106 mg/dL 70-110 : TESTED AT [facility] [address] (test ciir=6451) [facility], [address]: 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 Baltazar LaroseWith IV and PO contrastWill this procedure require oral contrast?->YesFINAL REPORT TECHNIQUE: CT of the abdomen WITHOUT and WITH intravenous contrast and WITH oral contrast. Dose modulation, iterative reconstruction, and/or weight-based adjustment of the mA/kV was utilized to reduce the radiation dose to as low as reasonably achievable. INDICATION: Liver transplantNausea/vomitings/p liver transplant with vomiting. COMPARISON: CT of the abdomen and pelvis from 08/09/2019. FINDINGS: LOWER THORAX: Moderate size left and small right pleural effusions. Bibasilar subsegmental atelectasis HEPATOBILIARY: Prior liver transplantation. A cyst in segment III measures 1.6 cm. A cyst in segment VIII measures 0.9 cm. A cyst in segment 5 measures 0.8 cm. Gallbladder is unremarkable. Mild intrahepatic ductal dilation. There is soft tissue density in the cory hepatis.SPLEEN: No splenomegaly. A hypoenhancing structure in the spleen measures 0.9 cm, progressed enhances, and is most likely a hemangioma.PANCREAS: No focal masses or ductal dilatation. ADRENALS:Left adrenal mass measures 3.4 cm and less than 10 Hounsfield units.KIDNEYS/URETERS: No hydronephrosis, stones, or solid mass lesions. PERITONEUM/RETROPERITONEUM: Small volume upper abdominal ascites.LYMPH NODES: No lymphadenopathy.VESSELS: The hepatic vasculature is patent. There was previously a replaced right hepatic artery which now only supplies the pancreatic head. GI TRACT: No distention or wall thickening. BONES AND SOFT TISSUES: Unremarkable. IMPRESSION: 1.The soft tissue density in the cory hepatis is most likely reactive to the recent surgery. There is mild intrahepatic ductal dilationfrom an indeterminate cause. However, this soft tissue density in the cory hepatis could be related. 2.The transplant vasculature is widely patent. 3.Moderate-sized left and small right pleural effusions. Small volume upper abdominal ascites. 4.A left adrenal adenoma measures 3.4 cm. No follow-up is recommended. Signed: Vega Yarbrough MDReport Verified Date/Time: 08/11/2019 16:09:55 Reading Location: [facility] B1 C013W Consult Reading Room 04 :09 PMC. DIFFICILE GDH [id number] 14:25:00 Test Item Value Reference Range Comments CDT TOXIN (test Negative Negative bqxy=[id number]) CDT GDH ANTIGEN (test Negative Negative No indication of Clostridium ytno=[id number]) difficile infection and no colonization. Discontinue enteric isolation and therapy. Testing performed by [employer] Rapid [employer]ette Assay. For GDH, published sensitivity of the assay is 98.7% compared to cytotoxicity testing. For Toxin AB, published sensitivity is 87.8% and specificity 99.4% compared to cytotoxicity testing.Verification of kit performance was done by the [facility] Microbiology Lab prior to clinical use.URINALYSIS W/ REFLEX URINE [id number] 13:50:00 Test Item Value Reference Range Comments COLOR (BEAKER) (test lekl=501) Yellow CLARITY (BEAKER) (test dmlq=696) Clear SPECIFIC GRAVITY UA (BEAKER) (test mach=574) 1.020 1.001-1.035 PH UA (BEAKER) (test jskt=165) 6.0 5.0-8.0 PROTEIN UA (BEAKER) (test fqdr=844) Negative Negative GLUCOSE UA (BEAKER) (test bkxw=724) Negative Negative KETONES UA (BEAKER) (test jhco=573) Negative Negative BILIRUBIN UA (BEAKER) (test ycyd=911) Negative Negative BLOOD UA (BEAKER) (test hutt=297) Negative Negative NITRITE UA (BEAKER) (test sdam=671) Negative Negative LEUKOCYTE ESTERASE UA (BEAKER) (test hmcr=872) Negative Negative UROBILINOGEN UA (BEAKER) (test dxel=438) 0.2 mg/dL 0.2-1.0 RBC UA (BEAKER) (test rbsy=988) 1 /HPF WBC UA (BEAKER) (test vmoi=714) 1 /HPF BACTERIA (BEAKER) (test kprj=542) Rare SOURCE(BEAKER) (test zqvr=0921) POCT-GLUCOSE [id number] 12:03:00 Test Item Value Reference Range Comments POC-GLUCOSE METER (BEAKER) 82 mg/dL 70-110 : TESTED AT [address] (test uorm=8686) [facility], [address]: Travel Journalist/[employer] XD=[id number] for ROSANGELA BENTLEY POCT-GLUCOSE [id number] 10:09:00 Test Item Value Reference Range Comments POC-GLUCOSE METER (BEAKER) 86 mg/dL 70-110 : TESTED AT [address] (test hpng=3284) [facility], [address]: Travel Journalist/Band Saw Operator [employer] ZJ=[id number] for ROSANGELA BENTLEY TACROLIMUS [id number] 09:29:00 Test Item Value Reference Range Comments TACROLIMUS BLOOD (BEAKER) (test ahzj=353) 9.0 ng/mL 10.0-20.0 POCT-GLUCOSE [id number] 09:28:00 Test Item Value Reference Range Comments POC-GLUCOSE METER (BEAKER) 60 mg/dL 70-110 : TESTED AT [address] (test kquh=8684) [facility], [address]: Travel Journalist/Band Saw Operator [employer] VC=[id number] for ROSANGELA BENTLEY RAD, ABDOMEN/KUB, 1 VIEW [id number] 09:11:00Referring: Dr. Baltazar Rivera for exam:->vomitingFINAL REPORT RAD, ABDOMEN/KUB, 1 VIEW AP CLINICAL INDICATION: vomiting COMPARISON: None TECHNIQUE: Single, frontal radiograph of the abdomen. FINDINGS: Surgical philly project over the abdomen. Radiopaque density is noted interposed between the 10th 11th posterior ribs withclinical correlation suggested. The bowel gas pattern is nonspecific, but nonobstructive. The regional skeleton is intact. Signed: Tori Mendez MDReport Verified Date/Time: 08/11/2019 09:11:23 Reading Location: [facility] Radiology Reading Room URINE [id number] 07:21:00 Test Item Value Reference Range Comments CULTURE (BEAKER) (test qnuk=4749) No growth CBC W/PLT COUNT & AUTO [id number] 06:38:00 Test Item Value Reference Range Comments WHITE BLOOD CELL COUNT 21.3 K/ L 3.5-10.5 (BEAKER) (test lnzr=981) RED BLOOD CELL COUNT (BEAKER) 4.63 M/ L 4.63-6.08 (test wptm=869) HEMOGLOBIN (BEAKER) (test 14.3 GM/DL 13.7-17.5 airp=117) HEMATOCRIT (BEAKER) (test 43.5 % 40.1-51.0 jzwg=487) MEAN CORPUSCULAR VOLUME 94.0 fL 79.0-92.2 (BEAKER) (test ryim=638) MEAN CORPUSCULAR HEMOGLOBIN 30.9 pg 25.7-32.2 (BEAKER) (test rdul=039) MEAN CORPUSCULAR HEMOGLOBIN 32.9 GM/DL 32.3-36.5 CONC (BEAKER) (test amct=349) RED CELL DISTRIBUTION WIDTH 13.8 % 11.6-14.4 (BEAKER) (test seca=024) PLATELET COUNT (BEAKER) (test 229 K/CU MM 150-450 Discordant result compares bbbh=349) with previous; clinical correlation requires. MEAN PLATELET VOLUME (BEAKER) 11.9 fL 9.4-12.4 (test hifj=380) NUCLEATED RED BLOOD CELLS 0 /100 WBC 0-0 (BEAKER) (test naem=440) NEUTROPHILS RELATIVE PERCENT 80 % (BEAKER) (test fakw=790) LYMPHOCYTES RELATIVE PERCENT 12 % (BEAKER) (test tzgm=115) MONOCYTES RELATIVE PERCENT 5 % (BEAKER) (test wpoz=686) EOSINOPHILS RELATIVE PERCENT 0 % (BEAKER) (test vamn=776) BASOPHILS RELATIVE PERCENT 1 % (BEAKER) (test azii=320) NEUTROPHILS ABSOLUTE COUNT 17.09 K/ L 1.78-5.38 (BEAKER) (test dxro=177) LYMPHOCYTES ABSOLUTE COUNT 2.47 K/ L 1.32-3.57 (BEAKER) (test snrb=726) MONOCYTES ABSOLUTE COUNT 1.04 K/ L 0.30-0.82 (BEAKER) (test joco=695) EOSINOPHILS ABSOLUTE COUNT 0.00 K/ L 0.04-0.54 (BEAKER) (test ixwg=842) BASOPHILS ABSOLUTE COUNT 0.13 K/ L 0.01-0.08 (BEAKER) (test alvg=109) IMMATURE 3 % 0-1 GRANULOCYTES-RELATIVE PERCENT (BEAKER) (test ziij=2945) [id number] 06:26:00 Test Item Value Reference Range Comments PARTIAL THROMBOPLASTIN TIME (BEAKER) (test 30.9 seconds 22.5-36.0 huoj=223) PROTHROMBIN [id number] 06:25:00 Test Item Value Reference Range Comments PROTIME (BEAKER) (test xihx=212) 14.7 seconds 11.9-14.2 INR (BEAKER) (test nqjs=988) 1.2 <=5.9 Effective 01/20/2019: PT Reference Range ChangeNew: 11.9-14.2 Previous: 11.7- 14.7RECOMMENDED COUMADIN/WARFARIN INR THERAPY RANGESSTANDARD DOSE: 2.0-3.0 Includes: PROPHYLAXIS for venous thrombosis, systemic embolization; TREATMENT for venous thrombosis and/or pulmonary embolus.HIGH RISK: Target INR is2.5-3.5 for patients wiht mechanical heart valves.[id number] 06:23:00 Test Item Value Reference Range Comments PHOSPHORUS (BEAKER) (test mlmc=372) 2.5 mg/dL 2.3-4.7 [id number] 06:23:00 Test Item Value Reference Range Comments MAGNESIUM (BEAKER) (test vfjx=629) 1.6 mg/dL 1.6-2.6 BASIC METABOLIC [id number] 06:23:00 Test Item Value Reference Range Comments SODIUM (BEAKER) (test 138 meq/L 136-145 gwzb=290) POTASSIUM (BEAKER) (test 4.0 meq/L 3.5-5.1 dwfx=031) CHLORIDE (BEAKER) (test 106 meq/L 98-107 ufda=275) CO2 (BEAKER) (test 25 meq/L 22-29 loyn=370) BLOOD UREA NITROGEN 20 mg/dL 7-21 (BEAKER) (test seqf=495) CREATININE (BEAKER) (test 0.86 mg/dL 0.57-1.25 tbjf=264) GLUCOSE RANDOM (BEAKER) 80 mg/dL 70-105 (test buzx=614) CALCIUM (BEAKER) (test 8.6 mg/dL 8.4-10.2 pizz=358) EGFR (BEAKER) (test 90 mL/min/1.73 sq m ESTIMATED GFR IS NOT qztx=1910) ACCURATE CREATININE CLEARANCE IN PREDICTING GLOMERULAR FILTRATION RATE. ESTIMATED GFR IS NOT APPLICABLE FOR DIALYSIS PATIENTS. HEPATIC FUNCTION [id number] 06:23:00 Test Item Value Reference Range Comments TOTAL PROTEIN (BEAKER) (test ljhl=960) 5.7 gm/dL 6.0-8.3 ALBUMIN (BEAKER) (test ktjs=6627) 3.5 g/dL 3.5-5.0 BILIRUBIN TOTAL (BEAKER) (test qvab=494) 0.8 mg/dL 0.2-1.2 BILIRUBIN DIRECT (BEAKER) (test ibej=970) 0.4 mg/dL 0.1-0.5 ALKALINE PHOSPHATASE (BEAKER) (test zsoq=469) 137 U/L 40-150 AST (SGOT) (BEAKER) (test dizg=407) 61 U/L 5-34 ALT (SGPT) (BEAKER) (test psaa=844) 175 U/L 6-55 POCT-GLUCOSE [id number] 22:28:00 Test Item Value Reference Range Comments POC-GLUCOSE METER (BEAKER) 129 mg/dL 70-110 : TESTED AT [address] (test gvcf=8253) [facility], [address]: Travel Journalist/[employer] Operator [employer] XD=108493 for Ashiabi, Deirdre POCT-GLUCOSE [id number] 17:43:00 Test Item Value Reference Range Comments POC-GLUCOSE METER (BEAKER) 129 mg/dL 70-110 : TESTED AT [address] (test hwjx=5077) [facility], [address]: Travel Journalist/[employer] Saw Operator [employer] CO=[id number] for PRITESH, BRAULIO POCT-GLUCOSE [id number] 12:29:00 Test Item Value Reference Range Comments POC-GLUCOSE METER (BEAKER) 72 mg/dL 70-110 : TESTED AT [address] (test marn=6986) [facility], [address]: Travel Journalist/Band Saw Operator [employer] RU=[id number] for Nyamandi, Miriro SPUTUM CULTURE + GRAM [id number] 11:36:00 Test Item Value Reference Range Comments CULTURE (BEAKER) (test 1+ Normal respiratory lucy rury=8012) present GRAM STAIN RESULT (BEAKER) <1+ WBCs (test jydz=5859) GRAM STAIN RESULT (BEAKER) 0-5 epithelial cells (test lyhd=77040) GRAM STAIN RESULT (BEAKER) <1+ gram negative rods (test spau=48968) GRAM STAIN RESULT (BEAKER) 2+ gram positive cocci in pairs (test irhc=820778) URINE [id number] 11:01:00 Test Item Value Reference Range Comments CULTURE (BEAKER) (test hbfw=4196) No growth TACROLIMUS [id number] 09:21:00 Test Item Value Reference Range Comments TACROLIMUS BLOOD (BEAKER) (test fwab=868) 9.5 ng/mL 10.0-20.0 POCT-GLUCOSE [id number] 09:02:00 Test Item Value Reference Range Comments POC-GLUCOSE METER (BEAKER) 151 mg/dL 70-110 : TESTED AT [address] (test deno=7273) [facility], [address]: Travel Journalist/Band Saw Operator [employer] TO=[id number] for BRAULIO JONAS POCT-GLUCOSE [id number] 08:34:00 Test Item Value Reference Range Comments POC-GLUCOSE METER (BEAKER) 64 mg/dL 70-110 : TESTED AT [address] (test zath=3259) [facility], [address]: Travel Journalist/Band Saw Operator [employer] IQ=[id number] for PRITESH BRAULIO BASIC METABOLIC [id number] 07:28:00 Test Item Value Reference Range Comments SODIUM (BEAKER) (test 139 meq/L 136-145 jusu=660) POTASSIUM (BEAKER) (test 3.8 meq/L 3.5-5.1 wzku=511) CHLORIDE (BEAKER) (test 109 meq/L 98-107 hilt=570) CO2 (BEAKER) (test 27 meq/L 22-29 yiak=419) BLOOD UREA NITROGEN 21 mg/dL 7-21 (BEAKER) (test dlsm=546) CREATININE (BEAKER) (test 0.69 mg/dL 0.57-1.25 nzzy=937) GLUCOSE RANDOM (BEAKER) 62 mg/dL 70-105 (test mwcq=227) CALCIUM (BEAKER) (test 7.8 mg/dL 8.4-10.2 uqks=185) EGFR (BEAKER) (test 116 mL/min/1.73 sq m ESTIMATED GFR IS NOT fgca=0719) ACCURATE CREATININE CLEARANCE IN PREDICTING GLOMERULAR FILTRATION RATE. ESTIMATED GFR IS NOT APPLICABLE FOR DIALYSIS PATIENTS. [id number] 07:27:00 Test Item Value Reference Range Comments PHOSPHORUS (BEAKER) (test hqrr=992) 2.6 mg/dL 2.3-4.7 [id number] 07:27:00 Test Item Value Reference Range Comments MAGNESIUM (BEAKER) (test syxd=500) 1.9 mg/dL 1.6-2.6 HEPATIC FUNCTION [id number] 07:27:00 Test Item Value Reference Range Comments TOTAL PROTEIN (BEAKER) (test hnte=147) 4.8 gm/dL 6.0-8.3 ALBUMIN (BEAKER) (test mubc=4303) 3.0 g/dL 3.5-5.0 BILIRUBIN TOTAL (BEAKER) (test bbjb=462) 0.8 mg/dL 0.2-1.2 BILIRUBIN DIRECT (BEAKER) (test zbrc=459) 0.4 mg/dL 0.1-0.5 ALKALINE PHOSPHATASE (BEAKER) (test qfjd=157) 107 U/L 40-150 AST (SGOT) (BEAKER) (test bnkn=527) 58 U/L 5-34 ALT (SGPT) (BEAKER) (test hqgj=961) 153 U/L 6-55 PROTHROMBIN [id number] 06:56:00 Test Item Value Reference Range Comments PROTIME (BEAKER) (test uspv=607) 15.3 seconds 11.9-14.2 INR (BEAKER) (test sbax=336) 1.3 <=5.9 Effective 01/20/2019: PT Reference Range ChangeNew: 11.9-14.2 Previous: 11.7- 14.7RECOMMENDED COUMADIN/WARFARIN INR THERAPY RANGESSTANDARD DOSE: 2.0-3.0 Includes: PROPHYLAXIS for venous thrombosis, systemic embolization; TREATMENT for venous thrombosis and/or pulmonary embolus.HIGH RISK: Target INR is2.5-3.5 for patients wiht mechanical heart valves.[id number] 06:56:00 Test Item Value Reference Range Comments PARTIAL THROMBOPLASTIN TIME (BEAKER) (test 31.0 seconds 22.5-36.0 mmns=628) CBC W/PLT COUNT & AUTO [id number] 06:54:00 Test Item Value Reference Range Comments WHITE BLOOD CELL COUNT (BEAKER) (test fbab=854) 12.5 K/ L 3.5-10.5 RED BLOOD CELL COUNT (BEAKER) (test pbqt=172) 3.97 M/ L 4.63-6.08 HEMOGLOBIN (BEAKER) (test dsai=332) 12.4 GM/DL 13.7-17.5 HEMATOCRIT (BEAKER) (test bcxn=447) 37.6 % 40.1-51.0 MEAN CORPUSCULAR VOLUME (BEAKER) (test xtyu=754) 94.7 fL 79.0-92.2 MEAN CORPUSCULAR HEMOGLOBIN (BEAKER) (test 31.2 pg 25.7-32.2 nmvk=200) MEAN CORPUSCULAR HEMOGLOBIN CONC (BEAKER) (test 33.0 GM/DL 32.3-36.5 agyl=786) RED CELL DISTRIBUTION WIDTH (BEAKER) (test 13.4 % 11.6-14.4 guyr=461) PLATELET COUNT (BEAKER) (test njll=350) 127 K/CU MM 150-450 MEAN PLATELET VOLUME (BEAKER) (test jojt=798) 12.0 fL 9.4-12.4 NUCLEATED RED BLOOD CELLS (BEAKER) (test 0 /100 WBC 0-0 duwv=065) NEUTROPHILS RELATIVE PERCENT (BEAKER) (test 73 % lwea=443) LYMPHOCYTES RELATIVE PERCENT (BEAKER) (test 18 % umja=716) MONOCYTES RELATIVE PERCENT (BEAKER) (test 6 % tmzs=535) EOSINOPHILS RELATIVE PERCENT (BEAKER) (test 0 % wfbs=755) BASOPHILS RELATIVE PERCENT (BEAKER) (test 1 % pcuu=930) NEUTROPHILS ABSOLUTE COUNT (BEAKER) (test 9.18 K/ L 1.78-5.38 dzdo=765) LYMPHOCYTES ABSOLUTE COUNT (BEAKER) (test 2.30 K/ L 1.32-3.57 qlwy=403) MONOCYTES ABSOLUTE COUNT (BEAKER) (test 0.70 K/ L 0.30-0.82 iteo=080) EOSINOPHILS ABSOLUTE COUNT (BEAKER) (test 0.00 K/ L 0.04-0.54 pjwp=170) BASOPHILS ABSOLUTE COUNT (BEAKER) (test 0.09 K/ L 0.01-0.08 fyqq=323) IMMATURE GRANULOCYTES-RELATIVE PERCENT (BEAKER) 2 % 0-1 (test ajxc=9281) POCT-GLUCOSE [id number] 22:18:00 Test Item Value Reference Range Comments POC-GLUCOSE METER (BEAKER) 146 mg/dL 70-110 : TESTED AT [facility] [address] [facility] (test iiwq=2973) [facility], [address]: Travel Journalist/[employer] Operator [employer] EF=[id number] for RORO CORDOVA U/S, ABDOMINAL, WITH [id number] 19:40:00Referring: Dr. Baltazar Rivera for exam:->s/p OLT possible infection- assess vesseelsFINAL REPORT Ultrasound of the Abdomen and Duplex Doppler. TECHNIQUE: Sonographic assessment of the abdomen was performed as well as a detailed duplex Doppler assessment of the liver including spectral wave forms and color- flow analysis of the major vascular structures. ClinicalHistory: s/p OLT possible infection- assess vesseels. Comparison study: CT scan dated July. Findings: The transplant liver is homogeneous in echotexture with no focal masses. It measures 17.1 cm in length. There is no evidence of intra or extrahepatic biliary dilatation with the common bile duct measuring 7 mm. The main portal vein diameter is 1.2 cm. The gallbladder is absent. The spleen measures 14.1 cm, enlarged. The pancreas is obscured by overlying bowel gas. Minimal ascites is present. The right kidney measures 12.3 cm and left kidney measures 13.2 cm, both within normal limits. Bilateral small pleural effusions are seen, larger on the right side. The proximal aorta is not wellseen. Doppler interrogation of the liver demonstrates a main portal vein diameter measuring 1.2 cm with a peak systolic velocity of 34 cm/sec. Hepatopetal inflow is seen in the right, left, main [place] splenic veins. The resistive indices in the proper and left hepatic arteries are 0.74 and 0.72 respectively. The right hepatic artery could not be seen. Outflow with appropriate directionality isseen in the IVC, hepatic venous confluence as well as the right , middle and left hepatic veins. Impression: 1. Nodular homogeneous transplant liver. No focal masses are seen.2. Splenomegaly.3. Limited visibility study as detailed above. The pancreas and aorta are not seen.4. Minimal ascites and bilateral pleural effusions.5. Splenomegaly.6. Right hepatic artery not seen. All other vessels patent. Signed: Yudi Recio MDReport Verified Date/Time: 08/09/2019 19:40:50 Reading Location: [address] [id number] 18:16:00Medical Cytology Report Case: [id number] Authorizing Provider: Tori Sosa NP Collected: 08/06/2019 1545 Ordering Location: [address] Received: 08/09/2019 0911 Pathologist: Rosenda Rosenbaum MD Specimen: Pleural, Right RIGHT PLEURAL FLUID (CYTOSPINS AND CELL BLOCK): - NO MALIGNANT CELLS IDENTIFIED - REACTIVE MESOTHELIAL CELLS Signing Pathologist Direct Phone Line: [phone] signed by Rosedna Rosenbaum MD on 08/09/2019 at 6:16 [id number], [id number] pleural effusion; history of total hepatectomy - moderately differentiated hepatocellular carcinoma([id number])RIGHT PLEURAL FLUIDReceived 1100 ml bloody fluidPrepared cell block(A2) using collodion bag and 4 cytospinsCollected: [id number]: [id number].SatisfactoryBaylor [facility], Department of Pathology, [address] [place] [address], Tel [facility], Department of Pathology, [address] [place] [address], GqdubkPomona Valley Hospital [facility], Department of Pathology,[address] [place] [address], Tel URINALYSIS W/ REFLEX URINE [id number] 13:17:00 Test Item Value Reference Range Comments COLOR (BEAKER) (test rfzn=934) Yellow CLARITY (BEAKER) (test twcb=400) Clear SPECIFIC GRAVITY UA (BEAKER) (test vler=495) 1.028 1.001-1.035 PH UA (BEAKER) (test tajr=809) 5.5 5.0-8.0 PROTEIN UA (BEAKER) (test wsgf=317) Negative Negative GLUCOSE UA (BEAKER) (test lwnj=811) Negative Negative KETONES UA (BEAKER) (test gvne=884) Negative Negative BILIRUBIN UA (BEAKER) (test etpw=323) Negative Negative BLOOD UA (BEAKER) (test eqkz=820) Negative Negative NITRITE UA (BEAKER) (test cfxo=598) Negative Negative LEUKOCYTE ESTERASE UA (BEAKER) (test qttn=078) Negative Negative UROBILINOGEN UA (BEAKER) (test yrht=283) 0.2 mg/dL 0.2-1.0 RBC UA (BEAKER) (test nher=671) 0 /HPF WBC UA (BEAKER) (test iieq=769) 1 /HPF SOURCE(BEAKER) (test kwdj=9465) CT, ABDOMEN, WITHOUT [id number] 12:49:00Referring: Dr. Baltazar Olson REPORT CT of the abdomen, without contrast Clinical History: s/p OLTnausea/vomiting Technique: CT of the abdomen is performed without intravenous contrast administration. This exam was performed according to our departmental dose optimization program which includes automated exposure control, adjustment of the mA and/or kV according to patient's size and/or use of iterative reconstructive technique. Comparison Film: MRI dated June 16, 2019 Discussion: There is amoderate to large left pleural effusion, and a small right effusion. Right-sided effusion has decreased compared to chest CT of August 06, 2019, likely related to thoracentesis. Heart and pericardiumappear unremarkable. Patient is status post liver transplant. A surgical clip is noted along the posterior border of the liver. No liver lesion. No biliary ductal dilatation, gallbladder is absent. Spleen is enlarged. Pancreas is unremarkable. There is a stable low density left adrenal mass measuring 3.8 x 3.2 cm, compatible with an adenoma. Normal right adrenal gland. Kidneys demonstrate no hydronephrosis, radiopaque stone, or contour deforming lesion. No evidence of bowel obstruction. There is mild colonic diverticulosis. Appendix is normal. There is as small amount of low-density ascites. No free air. No lymphadenopathy. Osseous structures demonstrate degenerative changes. Impression: Status post liver transplant. Persistent splenomegaly. Small amount of low-density ascites. Moderate to large left, small right pleural effusions. Left adrenal adenoma. Signed: Ramesh Smitheport Verified Date/Time: 08/09/2019 12:49:54 Reading Location: [facility] B1 C013X Ortho Consult Reading Room POCT-GLUCOSE [id number] 12:28:00 Test Item Value Reference Range Comments POC-GLUCOSE METER (BEAKER) 116 mg/dL 70-110 : TESTED AT [address] (test nofh=8019) [facility], [address]: Travel Journalist/[employer] QH=[id number] for PRITESH, BRAULIO BLOOD [id number] 11:00:00 Test Item Value Reference Range Comments CULTURE (BEAKER) (test qetn=8145) No growth in 5 days TACROLIMUS [id number] 10:57:00 Test Item Value Reference Range Comments TACROLIMUS BLOOD (BEAKER) (test sxjy=306) 11.4 ng/mL 10.0-20.0 BODY FLUID CULTURE + GRAM [id number] 10:05:00 Test Item Value Reference Range Comments CULTURE (BEAKER) (test kgca=4124) No growth GRAM STAIN RESULT (BEAKER) (test <1+ WBCs ygbg=3553) GRAM STAIN RESULT (BEAKER) (test No organisms seen uknl=59054) VANCOMYCIN LEVEL, [id number] 09:25:00 Test Item Value Reference Range Comments VANCOMYCIN TROUGH (BEAKER) (test hazw=985) 13.0 ug/mL 10.0-20.0 [id number] 09:20:00 Test Item Value Reference Range Comments AMYLASE (BEAKER) (test cefs=799) 30 U/L 25-125 POCT-GLUCOSE [id number] 08:00:00 Test Item Value Reference Range Comments POC-GLUCOSE METER (BEAKER) 134 mg/dL 70-110 : TESTED AT [place] [id number] [facility] (test kstu=3993) [facility], [address]: Travel Journalist/[employer] NS=[id number] for PRITESH, BRAULIO TSH/FREE T4 IF [id number] 07:34:00 Test Item Value Reference Range Comments THYROID STIMULATING HORMONE (BEAKER) (test 0.99 uIU/mL 0.35-4.94 gkpz=001) [id number] 07:19:00 Test Item Value Reference Range Comments PREALBUMIN (BEAKER) (test wdmh=189) 24 mg/dL 14-45 IMMUNOGLOBULIN G (IGG)2019-08-09 07:19:00 Test Item Value Reference Range Comments IMMUNOGLOBULIN G (IGG) (BEAKER) (test sulr=782) 572 mg/dL 540-1,822 CBC W/PLT COUNT & AUTO [id number] 07:05:00 Test Item Value Reference Range Comments WHITE BLOOD CELL COUNT (BEAKER) (test bvlp=373) 17.0 K/ L 3.5-10.5 RED BLOOD CELL COUNT (BEAKER) (test homa=778) 4.60 M/ L 4.63-6.08 HEMOGLOBIN (BEAKER) (test auwg=250) 14.2 GM/DL 13.7-17.5 HEMATOCRIT (BEAKER) (test cluq=539) 43.1 % 40.1-51.0 MEAN CORPUSCULAR VOLUME (BEAKER) (test qphq=513) 93.7 fL 79.0-92.2 MEAN CORPUSCULAR HEMOGLOBIN (BEAKER) (test 30.9 pg 25.7-32.2 mzof=701) MEAN CORPUSCULAR HEMOGLOBIN CONC (BEAKER) (test 32.9 GM/DL 32.3-36.5 pvwb=485) RED CELL DISTRIBUTION WIDTH (BEAKER) (test 13.5 % 11.6-14.4 tkem=257) PLATELET COUNT (BEAKER) (test qvpv=494) 151 K/CU MM 150-450 MEAN PLATELET VOLUME (BEAKER) (test tqup=452) 12.8 fL 9.4-12.4 NUCLEATED RED BLOOD CELLS (BEAKER) (test 0 /100 WBC 0-0 qsim=441) NEUTROPHILS RELATIVE PERCENT (BEAKER) (test 77 % qkfe=093) LYMPHOCYTES RELATIVE PERCENT (BEAKER) (test 13 % qdzd=176) MONOCYTES RELATIVE PERCENT (BEAKER) (test 6 % ujzj=390) EOSINOPHILS RELATIVE PERCENT (BEAKER) (test 0 % axlp=425) BASOPHILS RELATIVE PERCENT (BEAKER) (test 1 % xnek=587) NEUTROPHILS ABSOLUTE COUNT (BEAKER) (test 13.00 K/ L 1.78-5.38 wufp=704) LYMPHOCYTES ABSOLUTE COUNT (BEAKER) (test 2.14 K/ L 1.32-3.57 hfsn=501) MONOCYTES ABSOLUTE COUNT (BEAKER) (test 1.06 K/ L 0.30-0.82 jquc=847) EOSINOPHILS ABSOLUTE COUNT (BEAKER) (test 0.00 K/ L 0.04-0.54 aybi=003) BASOPHILS ABSOLUTE COUNT (BEAKER) (test 0.10 K/ L 0.01-0.08 omrn=634) IMMATURE GRANULOCYTES-RELATIVE PERCENT (BEAKER) 4 % 0-1 (test jciv=4914) [id number] 07:05:00 Test Item Value Reference Range Comments PHOSPHORUS (BEAKER) (test xexw=125) 3.4 mg/dL 2.3-4.7 [id number] 07:05:00 Test Item Value Reference Range Comments MAGNESIUM (BEAKER) (test tpeo=588) 1.5 mg/dL 1.6-2.6 BASIC METABOLIC [id number] 07:05:00 Test Item Value Reference Range Comments SODIUM (BEAKER) (test 138 meq/L 136-145 iskq=733) POTASSIUM (BEAKER) (test 3.8 meq/L 3.5-5.1 jtnp=990) CHLORIDE (BEAKER) (test 104 meq/L 98-107 eccw=012) CO2 (BEAKER) (test 26 meq/L 22-29 masn=317) BLOOD UREA NITROGEN 34 mg/dL 7-21 (BEAKER) (test upbi=150) CREATININE (BEAKER) (test 0.87 mg/dL 0.57-1.25 zyzb=301) GLUCOSE RANDOM (BEAKER) 130 mg/dL 70-105 (test neuw=670) CALCIUM (BEAKER) (test 8.3 mg/dL 8.4-10.2 mpau=139) EGFR (BEAKER) (test 89 mL/min/1.73 sq m ESTIMATED GFR IS NOT ccqi=2764) ACCURATE CREATININE CLEARANCE IN PREDICTING GLOMERULAR FILTRATION RATE. ESTIMATED GFR IS NOT APPLICABLE FOR DIALYSIS PATIENTS. HEPATIC FUNCTION [id number] 07:05:00 Test Item Value Reference Range Comments TOTAL PROTEIN (BEAKER) (test ceoy=411) 5.6 gm/dL 6.0-8.3 ALBUMIN (BEAKER) (test ekfv=5027) 3.4 g/dL 3.5-5.0 BILIRUBIN TOTAL (BEAKER) (test btmx=653) 1.1 mg/dL 0.2-1.2 BILIRUBIN DIRECT (BEAKER) (test dely=025) 0.5 mg/dL 0.1-0.5 ALKALINE PHOSPHATASE (BEAKER) (test mdws=874) 150 U/L 40-150 AST (SGOT) (BEAKER) (test jybp=927) 65 U/L 5-34 ALT (SGPT) (BEAKER) (test vebp=743) 190 U/L 6-55 PROTHROMBIN [id number] 06:15:00 Test Item Value Reference Range Comments PROTIME (BEAKER) (test vxbe=599) 14.5 seconds 11.9-14.2 INR (BEAKER) (test mgqw=950) 1.2 <=5.9 Effective 01/20/2019: PT Reference Range ChangeNew: 11.9-14.2 Previous: 11.7- 14.7RECOMMENDED COUMADIN/WARFARIN INR THERAPY RANGESSTANDARD DOSE: 2.0-3.0 Includes: PROPHYLAXIS for venous thrombosis, systemic embolization; TREATMENT for venous thrombosis and/or pulmonary embolus.HIGH RISK: Target INR is2.5-3.5 for patients wiht mechanical heart valves.[id number] 06:11:00 Test Item Value Reference Range Comments PARTIAL THROMBOPLASTIN TIME (BEAKER) (test 28.9 seconds 22.5-36.0 julw=389) RAD, ABDOMEN/KUB, 1 VIEW [id number] 01:25:00Referring: Dr. Baltazar Rivera for exam:->nausea/vomitingShould this be performed at the bedside?-> YesFINAL REPORT RAD, ABDOMEN/KUB, 1 VIEW AP CLINICAL HISTORY: nausea/vomiting TECHNIQUE: RAD, ABDOMEN/KUB, 1 VIEW AP COMPARISON: IMPRESSION: The bowel gas pattern is nonspecific/nonobstructive. Small to moderate volume fecal burden. No portal venous gas or pneumatosis intestinalis. No free air. Skin philly project over the upper abdomen. Plastic cap or device projects over the liver, possibly overlying the patient but nonspecific. Signed : Yosvany Raza MDReport Verified Date/Time: 08/09/2019 01:25:40 POCT- GLUCOSE [id number] 22:35:00 Test Item Value Reference Range Comments POC-GLUCOSE METER (BEAKER) 242 mg/dL 70-110 : TESTED AT [facility] [address] [facility] [facility] (test yjkk=5527) [facility], [address]: Travel Journalist/Band Saw Operator [employer] FB=[id number] for RENUKA LOPEZ POCT-GLUCOSE [id number] 16:17:00 Test Item Value Reference Range Comments POC-GLUCOSE METER (BEAKER) 272 mg/dL 70-110 : TESTED AT [facility] [address] [facility] [facility] (test ituw=9862) [facility], [address]: Travel Journalist/Band Saw Operator [employer] YM=[id number] for BHUPENDRA RIVERA BLOOD [id number] 15:00:00 Test Item Value Reference Range Comments CULTURE (BEAKER) (test veyl=3517) No growth in 5 days URINALYSIS W/ REFLEX URINE [id number] 14:53:00 Test Item Value Reference Range Comments COLOR (BEAKER) (test vofr=512) Yellow CLARITY (BEAKER) (test pedz=269) Clear SPECIFIC GRAVITY UA (BEAKER) (test ykqg=081) 1.017 1.001-1.035 PH UA (BEAKER) (test gvfn=840) 5.0 5.0-8.0 PROTEIN UA (BEAKER) (test spmh=461) Negative Negative GLUCOSE UA (BEAKER) (test vlwu=007) Negative Negative KETONES UA (BEAKER) (test uios=575) Negative Negative BILIRUBIN UA (BEAKER) (test nfrq=420) Negative Negative BLOOD UA (BEAKER) (test zgwr=522) Negative Negative NITRITE UA (BEAKER) (test olbz=309) Negative Negative LEUKOCYTE ESTERASE UA (BEAKER) (test jxus=203) Negative Negative UROBILINOGEN UA (BEAKER) (test xvot=490) 0.2 mg/dL 0.2-1.0 RBC UA (BEAKER) (test dlcr=415) 2 /HPF WBC UA (BEAKER) (test bbch=059) 3 /HPF BACTERIA (BEAKER) (test phzy=885) Moderate SQUAMOUS EPITHELIAL (BEAKER) (test fvkt=531) 4 /HPF SOURCE(BEAKER) (test vtuw=0401) POCT-GLUCOSE [id number] 12:23:00 Test Item Value Reference Range Comments POC-GLUCOSE METER (BEAKER) 209 mg/dL 70-110 : TESTED AT [facility] [address] [facility] (test khfd=5727) [facility], [address]: Travel Journalist/Band Saw Operator [employer] CE=[id number] for PILLO BLOUNT TACROLIMUS [id number] 10:29:00 Test Item Value Reference Range Comments TACROLIMUS BLOOD (BEAKER) (test qbuj=434) 13.2 ng/mL 10.0-20.0 POCT-GLUCOSE [id number] 08:26:00 Test Item Value Reference Range Comments POC-GLUCOSE METER (BEAKER) 93 mg/dL 70-110 : TESTED AT [facility] [address] (test yshg=5543) [facility], [address]: Travel Journalist/Band Saw Operator [employer] GL=[id number] for PILLO BLOUNT BASIC METABOLIC [id number] 07:29:00 Test Item Value Reference Range Comments SODIUM (BEAKER) (test 138 meq/L 136-145 pzql=313) POTASSIUM (BEAKER) (test 3.5 meq/L 3.5-5.1 tgxh=462) CHLORIDE (BEAKER) (test 104 meq/L 98-107 rlyu=125) CO2 (BEAKER) (test 27 meq/L 22-29 taar=635) BLOOD UREA NITROGEN 32 mg/dL 7-21 (BEAKER) (test rflf=359) CREATININE (BEAKER) (test 0.98 mg/dL 0.57-1.25 ghew=848) GLUCOSE RANDOM (BEAKER) 149 mg/dL 70-105 (test njaa=067) CALCIUM (BEAKER) (test 7.9 mg/dL 8.4-10.2 gjmn=285) EGFR (BEAKER) (test 78 mL/min/1.73 sq m ESTIMATED GFR IS NOT fyan=3195) ACCURATE CREATININE CLEARANCE IN PREDICTING GLOMERULAR FILTRATION RATE. ESTIMATED GFR IS NOT APPLICABLE FOR DIALYSIS PATIENTS. [id number] 07:13:00 Test Item Value Reference Range Comments PHOSPHORUS (BEAKER) (test wbsy=206) 3.3 mg/dL 2.3-4.7 [id number] 07:13:00 Test Item Value Reference Range Comments MAGNESIUM (BEAKER) (test djmc=081) 1.7 mg/dL 1.6-2.6 HEPATIC FUNCTION [id number] 07:13:00 Test Item Value Reference Range Comments TOTAL PROTEIN (BEAKER) (test cqad=794) 4.9 gm/dL 6.0-8.3 ALBUMIN (BEAKER) (test zorz=4028) 3.0 g/dL 3.5-5.0 BILIRUBIN TOTAL (BEAKER) (test iydg=242) 1.0 mg/dL 0.2-1.2 BILIRUBIN DIRECT (BEAKER) (test llhy=460) 0.5 mg/dL 0.1-0.5 ALKALINE PHOSPHATASE (BEAKER) (test ulva=502) 130 U/L 40-150 AST (SGOT) (BEAKER) (test bdpd=948) 48 U/L 5-34 ALT (SGPT) (BEAKER) (test uuem=971) 158 U/L 6-55 CBC W/PLT COUNT & AUTO [id number] 06:50:00 Test Item Value Reference Range Comments WHITE BLOOD CELL COUNT (BEAKER) (test ejzc=887) 13.1 K/ L 3.5-10.5 RED BLOOD CELL COUNT (BEAKER) (test mxyq=997) 4.11 M/ L 4.63-6.08 HEMOGLOBIN (BEAKER) (test fjzm=437) 12.9 GM/DL 13.7-17.5 HEMATOCRIT (BEAKER) (test psaf=064) 38.5 % 40.1-51.0 MEAN CORPUSCULAR VOLUME (BEAKER) (test ykfd=469) 93.7 fL 79.0-92.2 MEAN CORPUSCULAR HEMOGLOBIN (BEAKER) (test 31.4 pg 25.7-32.2 dylz=625) MEAN CORPUSCULAR HEMOGLOBIN CONC (BEAKER) (test 33.5 GM/DL 32.3-36.5 gmfm=596) RED CELL DISTRIBUTION WIDTH (BEAKER) (test 13.5 % 11.6-14.4 oapk=795) PLATELET COUNT (BEAKER) (test zrnw=662) 104 K/CU MM 150-450 MEAN PLATELET VOLUME (BEAKER) (test itdc=318) 13.0 fL 9.4-12.4 NUCLEATED RED BLOOD CELLS (BEAKER) (test 0 /100 WBC 0-0 rvub=466) NEUTROPHILS RELATIVE PERCENT (BEAKER) (test 73 % uqur=652) LYMPHOCYTES RELATIVE PERCENT (BEAKER) (test 19 % mcph=844) MONOCYTES RELATIVE PERCENT (BEAKER) (test 7 % jezy=975) EOSINOPHILS RELATIVE PERCENT (BEAKER) (test 0 % rlvd=695) BASOPHILS RELATIVE PERCENT (BEAKER) (test 0 % tkfu=973) NEUTROPHILS ABSOLUTE COUNT (BEAKER) (test 9.51 K/ L 1.78-5.38 hbkn=158) LYMPHOCYTES ABSOLUTE COUNT (BEAKER) (test 2.45 K/ L 1.32-3.57 rklj=786) MONOCYTES ABSOLUTE COUNT (BEAKER) (test 0.86 K/ L 0.30-0.82 gqcn=103) EOSINOPHILS ABSOLUTE COUNT (BEAKER) (test 0.00 K/ L 0.04-0.54 zmbm=111) BASOPHILS ABSOLUTE COUNT (BEAKER) (test 0.03 K/ L 0.01-0.08 nvfo=678) IMMATURE GRANULOCYTES-RELATIVE PERCENT (BEAKER) 2 % 0-1 (test osor=9293) [id number] 06:49:00 Test Item Value Reference Range Comments PARTIAL THROMBOPLASTIN TIME (BEAKER) (test 30.3 seconds 22.5-36.0 holq=855) PROTHROMBIN [id number] 06:48:00 Test Item Value Reference Range Comments PROTIME (BEAKER) (test ccup=527) 14.9 seconds 11.9-14.2 INR (BEAKER) (test mgsg=911) 1.2 <=5.9 Effective 01/20/2019: PT Reference Range ChangeNew: 11.9-14.2 Previous: 11.7- 14.7RECOMMENDED COUMADIN/WARFARIN INR THERAPY RANGESSTANDARD DOSE: 2.0-3.0 Includes: PROPHYLAXIS for venous thrombosis, systemic embolization; TREATMENT for venous thrombosis and/or pulmonary embolus.HIGH RISK: Target INR is2.5-3.5 for patients wiht mechanical heart valves.POCT-GLUCOSE [id number] 21:54:00 Test Item Value Reference Range Comments POC-GLUCOSE METER (BEAKER) 315 mg/dL 70-110 : TESTED AT [facility] [address] (test vuxf=8765) [facility], [address]: Travel Journalist/Band Saw Operator [employer] OO=[id number] for BRAULIO JONAS POCT-GLUCOSE [id number] 17:41:00 Test Item Value Reference Range Comments POC-GLUCOSE METER (BEAKER) 267 mg/dL 70-110 : TESTED AT [facility] [address] [place] [address] (test izqr=7112) [facility], [address]: Travel Journalist/Band Saw Operator [employer] UM=[id number] for ROSANGELA BENTLEY POCT-GLUCOSE [id number] 17:32:00 Test Item Value Reference Range Comments POC-GLUCOSE METER (BEAKER) 141 mg/dL 70-110 : TESTED AT [address] (test qtcc=2445) [facility], [address]: Travel Journalist/Band Saw Operator [employer] UI=484286 for ROSANGELA BENTLEY SPUTUM CULTURE + GRAM [id number] 13:04:00 Test Item Value Reference Range Comments CULTURE (BEAKER) (test 4+ Normal respiratory lucy elfq=3160) present GRAM STAIN RESULT (BEAKER) 1+ White blood cells seen (test jocw=7983) GRAM STAIN RESULT (BEAKER) 1+ gram negative rods (test jjce=514055) GRAM STAIN RESULT (BEAKER) 2+ gram positive cocci in pairs (test pemh=085826) GRAM STAIN RESULT (BEAKER) 0-5 epithelial cells (test gmxu=643764) TACROLIMUS [id number] 11:13:00 Test Item Value Reference Range Comments TACROLIMUS BLOOD (BEAKER) (test uyci=141) 13.3 ng/mL 10.0-20.0 RAD, CHEST, 1 VIEW, NON [id number] 09:56:00Referring: Dr. Baltazar Rivera for exam:->fluid overloadFINAL REPORT Portable chest. CLINICAL HISTORY: fluid overload. COMPARISON STUDY: Chest x-ray from yesterday. FINDINGS: The cardiac silhouette is enlarged. The pulmonary parenchyma demonstrates bibasilar atelectasis or consolidation with blunting of the costophrenic angles. The support lines and tubes are unchanged. No pneumothorax is seen. Degenerative changes are noted. IMPRESSION: Mild worsening of pulmonary opacities, most likely related to worsening CHF. In the right clinical setting, a superimposed infection would be difficult to exclude. Clinical correlation and short term imaging follow-up could be made to exclude other etiologies. Signed: Yudi Recio MDReport Verified Date/Time: 2018 09:56:48 Reading Location: [place] [id number] CT Body Reading Room POCT- GLUCOSE [id number] 08:28:00 Test Item Value Reference Range Comments POC-GLUCOSE METER (BEAKER) 107 mg/dL 70-110 : TESTED AT [facility] [address] [place] [address] (test rwgu=4443) [facility], [address]: Travel Journalist/Band Saw Operator [employer] OX=[id number] for ROSANGELA BENTLEY BASIC METABOLIC [id number] 06:47:00 Test Item Value Reference Range Comments SODIUM (BEAKER) (test 138 meq/L 136-145 btrq=593) POTASSIUM (BEAKER) (test 3.9 meq/L 3.5-5.1 Specimen slightly ewow=876) hemolyzed CHLORIDE (BEAKER) (test 104 meq/L 98-107 sqvl=144) CO2 (BEAKER) (test 29 meq/L 22-29 cqdq=140) BLOOD UREA NITROGEN 30 mg/dL 7-21 (BEAKER) (test gkxw=827) CREATININE (BEAKER) (test 0.82 mg/dL 0.57-1.25 Specimen slightly tkin=862) hemolyzed GLUCOSE RANDOM (BEAKER) 121 mg/dL 70-105 (test soxy=653) CALCIUM (BEAKER) (test 7.9 mg/dL 8.4-10.2 dspp=039) EGFR (BEAKER) (test 95 mL/min/1.73 sq m ESTIMATED GFR IS NOT nbfo=1757) ACCURATE CREATININE CLEARANCE IN PREDICTING GLOMERULAR FILTRATION RATE. ESTIMATED GFR IS NOT APPLICABLE FOR DIALYSIS PATIENTS. [id number] 06:36:00 Test Item Value Reference Range Comments MAGNESIUM (BEAKER) (test 1.8 mg/dL 1.6-2.6 Specimen slightly hemolyzed eiug=457) [id number] 06:36:00 Test Item Value Reference Range Comments PHOSPHORUS (BEAKER) (test 3.7 mg/dL 2.3-4.7 Specimen slightly hemolyzed juqe=986) HEPATIC FUNCTION [id number] 06:36:00 Test Item Value Reference Range Comments TOTAL PROTEIN (BEAKER) (test 4.9 gm/dL 6.0-8.3 Specimen slightly hemolyzed fjvc=108) ALBUMIN (BEAKER) (test 3.0 g/dL 3.5-5.0 Specimen slightly hemolyzed ixwn=8026) BILIRUBIN TOTAL (BEAKER) (test 1.2 mg/dL 0.2-1.2 Specimen slightly hemolyzed pwnt=020) BILIRUBIN DIRECT (BEAKER) (test 0.5 mg/dL 0.1-0.5 Specimen slightly hemolyzed sylx=573) ALKALINE PHOSPHATASE (BEAKER) 111 U/L 40-150 (test aibr=858) AST (SGOT) (BEAKER) (test 47 U/L 5-34 Specimen slightly hemolyzed sjcr=318) ALT (SGPT) (BEAKER) (test 164 U/L 6-55 Specimen slightly hemolyzed hejv=374) CBC W/PLT COUNT & AUTO [id number] 06:08:00 Test Item Value Reference Range Comments WHITE BLOOD CELL COUNT (BEAKER) (test faoj=108) 11.0 K/ L 3.5-10.5 RED BLOOD CELL COUNT (BEAKER) (test qftl=384) 4.04 M/ L 4.63-6.08 HEMOGLOBIN (BEAKER) (test andt=104) 12.7 GM/DL 13.7-17.5 HEMATOCRIT (BEAKER) (test nzjy=310) 37.7 % 40.1-51.0 MEAN CORPUSCULAR VOLUME (BEAKER) (test fohj=984) 93.3 fL 79.0-92.2 MEAN CORPUSCULAR HEMOGLOBIN (BEAKER) (test 31.4 pg 25.7-32.2 roen=660) MEAN CORPUSCULAR HEMOGLOBIN CONC (BEAKER) (test 33.7 GM/DL 32.3-36.5 qdvp=596) RED CELL DISTRIBUTION WIDTH (BEAKER) (test 13.5 % 11.6-14.4 ovhn=400) PLATELET COUNT (BEAKER) (test akie=288) 74 K/CU MM 150-450 MEAN PLATELET VOLUME (BEAKER) (test fzkl=631) 12.5 fL 9.4-12.4 NUCLEATED RED BLOOD CELLS (BEAKER) (test 0 /100 WBC 0-0 uexc=101) NEUTROPHILS RELATIVE PERCENT (BEAKER) (test 73 % fnqe=318) LYMPHOCYTES RELATIVE PERCENT (BEAKER) (test 18 % nhhl=230) MONOCYTES RELATIVE PERCENT (BEAKER) (test 7 % hqpf=586) EOSINOPHILS RELATIVE PERCENT (BEAKER) (test 0 % djmk=558) BASOPHILS RELATIVE PERCENT (BEAKER) (test 0 % wbgg=566) NEUTROPHILS ABSOLUTE COUNT (BEAKER) (test 8.07 K/ L 1.78-5.38 bxno=574) LYMPHOCYTES ABSOLUTE COUNT (BEAKER) (test 2.00 K/ L 1.32-3.57 guml=149) MONOCYTES ABSOLUTE COUNT (BEAKER) (test ygiy=054) 0.75 K/ L 0.30-0.82 EOSINOPHILS ABSOLUTE COUNT (BEAKER) (test 0.00 K/ L 0.04-0.54 seca=100) BASOPHILS ABSOLUTE COUNT (BEAKER) (test cjjg=745) 0.03 K/ L 0.01-0.08 IMMATURE GRANULOCYTES-RELATIVE PERCENT (BEAKER) 2 % 0-1 (test vabx=4345) PROTHROMBIN TIME/[id number] 06:01:00 Test Item Value Reference Range Comments PROTIME (BEAKER) (test paow=235) 15.8 seconds 11.9-14.2 INR (BEAKER) (test vmpz=773) 1.3 <=5.9 Effective 01/20/2019: PT Reference Range ChangeNew: 11.9-14.2 Previous: 11.7- 14.7RECOMMENDED COUMADIN/WARFARIN INR THERAPY RANGESSTANDARD DOSE: 2.0-3.0 Includes: PROPHYLAXIS for venous thrombosis, systemic embolization; TREATMENT for venous thrombosis and/or pulmonary embolus.HIGH RISK: Target INR is2.5-3.5 for patients wiht mechanical heart valves.[id number] 06:01:00 Test Item Value Reference Range Comments PARTIAL THROMBOPLASTIN TIME (BEAKER) (test 31.2 seconds 22.5-36.0 cgwv=885) POCT-GLUCOSE [id number] 22:46:00 Test Item Value Reference Range Comments POC-GLUCOSE METER (BEAKER) 204 mg/dL 70-110 : Notified RN/MD: TESTED AT (test qbjq=9868) [facility] [address] [facility], [address]: Travel Journalist/[employer] AK=[id number] for MARINO LAST POCT-GLUCOSE [id number] 18:16:00 Test Item Value Reference Range Comments POC-GLUCOSE METER (BEAKER) 145 mg/dL 70-110 : TESTED AT [facility] [address] [facility] (test wfub=6517) [facility], [address]: Travel Journalist/Band Saw Operator [employer] BE=[id number] for MON[place]NA VALENTINO U/S, [id number] 17:09:00Referring: Dr. Baltazar Jassoaterality?-> RightReason for exam:->pleural effusionLabs to be Ordered:->Body Fluid Culture (w/Gram Stain, C\\T\\S)Labs to be Ordered:->CytologyFINAL REPORT HISTORY : Right pleural effusion COMPARISON : None Comment : The procedure, including the risks and complications of the procedure , were explained to the patient and the patient consented. A pocket of fluid was identified in the right chest. This area was marked. The area was prepped and draped in the usual sterile fashion. 1% lidocaine was applied to the skin anddeep soft tissues. A 5 [place] one-step catheter was inserted and removed from the pleural space and approximately 1.5 liters of serosanguineous fluid was aspirated from the chest. There were no immediate complications. Impression : Successful ultrasound guided, right sided thoracentesis with aspiration of 1.5 liters of fluid. Signed: Matthew Muñozort Verified Date/Time: 2018 17:09:37 Reading Location: [address] Body Reading Room Electronically signed by: Isra FRANCISCO 08/06/2019 05:09 PMBODY FLUID CELL COUNT WITH [id number] 17:05:00 Test Item Value Reference Range Comments APPEARANCE FLUID (BEAKER) (test tpbm=355) Turbid Clear COLOR FLUID (BEAKER) (test icmd=673) Red Colorless, Straw RBC FLUID (BEAKER) (test xagv=137) 75[address] /cu mm <=1 ADJUSTED WBC FLUID (BEAKER) (test jzez=2106) 231 /cu mm <=5 LINING CELLS (BEAKER) (test kmyi=8130) 55 /cu mm <=1 NEUTROPHILS FLUID (BEAKER) (test sqnh=9729) 9 % LYMPHS FLUID (BEAKER) (test xqax=489) 76 % MONO/MACROPHAGE FLUID (BEAKER) (test ersu=816) 15 % EOSINOPHILS FLUID (BEAKER) (test mdcs=783) 0 % BASO FLUID (BEAKER) (test ymef=397) 0 % CONTAINER BODY FLUID (BEAKER) (test aqyp=9030) EDTA Tube TISSUE [id number] 16:42:00Surgical Pathology Report Case: [id number] Authorizing Provider: Evans Moses MD Collected: 07/30/201918 Ordering Location: [facility] Received: 07/30/2019 1348 PERIOPERATIVE SERVICES Pathologist: Rosenda Rosenbaum MD Specimens: A) - Lymph Node, periportal lymph node B) -Liver, [place] liver C ) - Gallbladder, donor gallbladder A. LYMPH NODE, PERIPORTAL, EXCISION- ONE LYMPH NODE WITH REACTIVE CHANGES (0/1) B. LIVER, YUHAAVIATAM, TOTAL HEPATECTOMY, STATUS POST TACE THERAPY- HEPATOCELLULAR CARCINOMA, MULTI-FOCAL, MODERATELY DIFFERENTIATED, RIGHT LOBE ~ 2.5 CM NODULE IN SEGMENT 6 ~ 1.0 CM NODULE IN SEGMENT 8 ~ FOCALTUMOR NECROSIS SEEN (~5%)- PATHOLOGIC STAGE CLASSIFICATION (pTNM, AJCC 8th Edition) - ypT2 ypN ypMx- NO DEFINITIVE LYMPHATIC/VASCULAR SPACE INVASION IDENTIFIED- VASCULAR MARGINS FREE- FIBROUS NODULES WITH BILE DUCTULE HYPERPLASIA AND FOCAL CENTRAL NECROSIS, 0.7 AND 0.4 CM, IN SEGMENT 7- MACRONODULAR CIRRHOSIS WITH MACROSTEATOSIS (~30%) ~ INCREASED IRON STORES (3+) ~ MILD PORTAL INFLAMMATION C. DONOR GALLBLADDER, CHOLECYSTECTOMY- CHRONIC CHOLECYSTITIS- CHOLELITHIASIS- TWO CYSTIC DUCT LYMPH NODES WITH REACTIVE CHANGES (0/2) Signing Pathologist Direct Phone Line: [phone] signed by Rosenda Rosenbaum MD on at 4:42 PMHEPATOCELLULAR CARCINOMA (HCC - B)SPECIMEN Procedure: Total hepatectomy TUMOR Histologic Type: Hepatocellular carcinoma Histologic Grade: G2: Moderately differentiated Tumor Focality: Multiple Tumor Characteristics: : Tumor Site: Segmental location: 6, 8 Tumor Size: Greatest dimension of viable tumor in Centimeters (cm): 2.6 Centimeters (cm) Treatment Effect: Incomplete necrosis (viable tumor present) Percentage Tumor Necrosis: 5 % Tumor Extent: Tumor Extension: Tumor confined to liver Accessory Findings: Vascular Invasion: Not identified Perineural Invasion: Not identified MARGINS Parenchymal Margin: Notapplicable : Other Margin: Margin Status: Uninvolved by invasive carcinoma LYMPH NODES Number of Lymph Nodes Involved: 0 Number of Lymph Nodes Examined: 1 PATHOLOGIC STAGE CLASSIFICATION (pTNM, AJCC 8th Edition) TNM Descriptors: y (post- treatment) Primary Tumor (pT): pT2 Regional Lymph Nodes (pN): pN0 ADDITIONAL FINDINGS Additional Pathologic Findings: Gjgsriyhl88240, 59770, 20644, 90070 X 2, 77298 X 2, 64279 X 4Preoperative diagnosis: Hepatic cirrhosis , unspecified hepatic cirrhosis type, unspecified whether ascites is present.Postoperative diagnosis: Hepatic cirrhosis, unspecified hepatic cirrhosis type, unspecified whether ascites is present.A. Lymph nodetissue. B. Liver tissue. C. Gallbladder tissue.Part A. Received in formalin labeled with the patient's name, accession number and "lymph node tissue, periportal lymph node" is a 3.0 x 2.4 x 0.5 cm portion of salgado-beavers fibroadipose tissue. Sectioning reveals a single firm salgado lymph node measuring 0.6 x 0.4 x 0.3 cm. The cut surface is unremarkable. The specimen is entirely submitted as follows: A1, lymph node bisected and entirely submittedA2-A3, remaining soft tissue, entirely submittedPart B. Received in formalin labeled with the patient's name, accession number and "liver tissue, [place] liver" is a2,695 gm, 23 x 23 x 14 cm liver with no attached gallbladder. The outer surface is salgado-maroon and firm with diffuse macro and micro nodularity with inter spread fibrous septa. There is a 1.0 x 0.7 x 0.3 cm, firm, beavers nodule located on the outer surface in segment 8 (inked blue). Sectioning reveals a 2.5 x 2.0 x 1.1 cm, multifocal, salgado -pink mass located in segment 6. The mass is over 6.0 cm from the portal vein. Additionally identified through sectioning are two beavers-white firm nodules that measure 0.4 x 0.3 x 0.3 cm and 0.7 x 0.5 x 0.4 cm. Both nodules are located in segment 7 and are more than 3.0 cm from the previously mentioned mass. The nodules are approximately 2.0 cm away from each other. Continued sectioning through the specimen reveals no further lesions. The remaining cut surface is salgado-maroon to salgado-pink, diffusely nodular and firm. The vascular margins all appear grossly uninvolved and unremarkable. The specimen is representatively submitted in cassettes B1-B14 as follows:B1, vascular margins B2, outer surface nodule, segment 8, representatively submitted B3-B5, mass, segment 6, sequentially and entirely submitted B6, smaller nodule bisected, segment 7, entirely submitted B7, larger nodule segment 7, bisected, entirely submitted B8 , direct sales representative sections of segment 2B9, direct sales representative sections of segment 3B10, direct sales representative sections of segment 4AB11, direct sales representative sections of segment 4BB12, direct sales representative sections of segment 5B13, direct sales representative sections of segment 8B14, direct sales representative sections of segment 1Part C. Received in formalin labeled with the patient's name, accession number and "gallbladder tissue, donor gallbladder" is a 12.7 x 4.6 x 1.5 cm previously opened gallbladder with an attached 2.4 cm in length x 0.4 cm in diameter cystic duct. The serosal surface istan-beavers, dusky and focally hyperemic with a serosal defect near the fundus region. The adventitial surface is salgado-brown, dusky and focally hyperemic with focal areas of loosely adhesed blood clot. Twopossible cystic duct lymph nodes are identified measuring 0.3 cm each in greatest dimension. The mucosa is salgado-brown and focally trabeculated. The lumen contains no contents. Cholelith fragments are identified in the cystic duct, which partially occlude the duct. The cholelith fragments vary in size from less than 0.1 to 0.1 cm in greatest dimension and measure 0.3 x 0.2 cm in aggregate. The wall thickness varies from 0.1 to 0.3 cm. The specimen is representatively submitted in cassettes C1-C2 as follows:C1, direct sales representative sections of neck, body, fundus and cystic duct to gallbladder (cystic duct margin inked blue)C2, two possible cystic duct lymph nodes, submitted in toto in J/ewPerformed.The interpretation of this case included the use of immunohistochemistry or special stains.Block B3- trichrome and [place]'s reticulin- highlight nodular fibrosis Desmin and CD31- do not reveal vascular invasionBlock R1Gzsuqn and CD31- do not reveal vascular invasionPerl's Iron- patchy 2-3+PAS- D- no abnormalintracellular depositsControl Slides Examined: In-house known positive controls were evaluated along with the test tissue. These control slides run alongside of the patients sample show appropriate staining. Internal positive and negative controls when available are evaluated Immunohistochemistry technical testing was performed at [facility], Pathology Laboratory where it was developed and its performance characteristics were determined. It has not been cleared or approved bythe U.S. Food and Drug Administration. The FDA has determined that such clearance or approval is notnecessary. The test is used for clinical purposes. It should not be regarded as investigational or for research. This laboratory is certified under the Clinical Laboratory Improvement Amendments of 1988 (CLIA-88) as qualified to perform high complexity clinical laboratory testing.[facility], Department of Pathology, [address] [place] [address], Tel [facility], [address] [place] [address], [facility], Department of [facility]ology, [address] [place] [address], Tel RAD, CHEST, 1 VIEW, NON [id number] 16:41:00Referring: Dr. Baltazar Mcgrath is in US room 1Reason for exam:->s/p right thoracentesisShould this beperformed at the bedside?->YesFINAL REPORT TECHNIQUE: Frontal chest radiograph dated 08/06/2019. CLINICAL HISTORY: S/P right thoracentesis COMPARISON STUDY: Chest radiograph performed earlier the same day IMPRESSION:Right-sided PICC is unchanged in position. Stable small bilateral pleural effusions with associated atelectasis. No pneumothorax. Cardiomediastinal silhouette is stable in size. No pulmonary edema. No fracture. 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 Baltazar Rivera for exam:->dyspneaWhat is the patient's sedation requirement?-&gt ;No SedationFINAL REPORT CT Chest with contrast (PE protocol) History: Dyspnea Comparison: CT chest 08/05/2019 Technique: serial axial imaging was performed following up to 100cc of non ionic iodinated intravenous contrast as per departmental protocol. Multiplanar, and maximum intensity projection images are reconstructed and reviewed. This CT examination is performed using one or more of the following dose reduction techniques: Automated exposure control, adjustment of the mA and /or kV according to patient size, and/or use of iterative reconstruction technique. Findings:No mediastinal or hilar lymphadenopathy. Normal size heart. No pericardial effusion. No thoracic aortic aneurysm or dissection. No pulmonary arterial filling defect. Patent central airways. Unchanged metallic densities within the right posterior costophrenic sulcus. Moderate to large bilateral pleural effusions have increased in size. Bilateral lower lobe compressive atelectasis is noted. The aerated portions of the lungs demonstrate nonspecific groundglass densities. Small foci of pneumomediastinum, unchanged from previous examination. 8 mm right hepatic lobe hypodensity is too small to fully characterize. 3.3 cm lipid rich adenoma is noted within the left adrenal gland. No aggressive osseous lesion. Impression: 1. No evidence of pulmonary embolus.2. Moderate to large bilateral pleural effusions, increased in size.3. Small foci of pneumomediastinum, unchanged from previous study. Signed: Jay Rosen Verified Date/Time: 08/06/2019 09:46:27 Reading Location: [facility] Radiology Reading Room POCT-GLUCOSE [id number] 09:38:00 Test Item Value Reference Range Comments POC-GLUCOSE METER (BEAKER) 131 mg/dL 70-110 : TESTED AT [facility] [address] [place] [address] (test rslh=2219) [facility], [address]: Travel Journalist/Band Saw Operator [employer] VD=[id number] for [place] VALENTINO RAD, CHEST, 1 VIEW, NON [id number] 08:34:00Referring: Dr. Baltazar Rivera for exam:->fluid overloadFINAL REPORT RAD, CHEST, 1 VIEW, NON DEPT INDICATION: fluid overload COMPARISON: Prior day's exam FINDINGS : Portable frontal view of the chest. IMPRESSION: Support Lines: PICCtip overlies the SVC Lungs and pleura: Unchanged airspace and pleural opacities. No pneumothorax.Heart and mediastinum: Stable contours. Stable surgical changes.Additional findings: None. Signed: Tori Mendez Verified Date/Time: 08/06/2019 08:34:50 Reading Location: [facility] Radiology Reading Room Electronically signed by: TORI MENDEZ MD on 2018 08:34 [id number] 07:19:00 Test Item Value Reference Range Comments PHOSPHORUS (BEAKER) (test qhfg=014) 4.1 mg/dL 2.3-4.7 [id number] 07:19:00 Test Item Value Reference Range Comments MAGNESIUM (BEAKER) (test bsid=147) 1.8 mg/dL 1.6-2.6 BASIC METABOLIC [id number] 07:19:00 Test Item Value Reference Range Comments SODIUM (BEAKER) (test 137 meq/L 136-145 rmnr=564) POTASSIUM (BEAKER) (test 3.8 meq/L 3.5-5.1 sdxw=255) CHLORIDE (BEAKER) (test 103 meq/L 98-107 vbmq=137) CO2 (BEAKER) (test 29 meq/L 22-29 ufux=899) BLOOD UREA NITROGEN 34 mg/dL 7-21 (BEAKER) (test nerq=531) CREATININE (BEAKER) (test 0.82 mg/dL 0.57-1.25 vuml=091) GLUCOSE RANDOM (BEAKER) 118 mg/dL 70-105 (test vffr=203) CALCIUM (BEAKER) (test 8.0 mg/dL 8.4-10.2 htfu=852) EGFR (BEAKER) (test 95 mL/min/1.73 sq m ESTIMATED GFR IS NOT lbsx=9525) ACCURATE CREATININE CLEARANCE IN PREDICTING GLOMERULAR FILTRATION RATE. ESTIMATED GFR IS NOT APPLICABLE FOR DIALYSIS PATIENTS. HEPATIC FUNCTION [id number] 07:19:00 Test Item Value Reference Range Comments TOTAL PROTEIN (BEAKER) (test vfrh=270) 5.0 gm/dL 6.0-8.3 ALBUMIN (BEAKER) (test dzqq=2359) 3.1 g/dL 3.5-5.0 BILIRUBIN TOTAL (BEAKER) (test winr=063) 1.4 mg/dL 0.2-1.2 BILIRUBIN DIRECT (BEAKER) (test jghc=263) 0.7 mg/dL 0.1-0.5 ALKALINE PHOSPHATASE (BEAKER) (test uhvj=512) 115 U/L 40-150 AST (SGOT) (BEAKER) (test axxx=215) 48 U/L 5-34 ALT (SGPT) (BEAKER) (test hvae=985) 198 U/L 6-55 CBC W/PLT COUNT & AUTO [id number] 06:45:00 Test Item Value Reference Range Comments WHITE BLOOD CELL COUNT (BEAKER) (test linx=060) 16.7 K/ L 3.5-10.5 RED BLOOD CELL COUNT (BEAKER) (test lfls=865) 4.54 M/ L 4.63-6.08 HEMOGLOBIN (BEAKER) (test ldgz=954) 14.2 GM/DL 13.7-17.5 HEMATOCRIT (BEAKER) (test oijx=530) 42.6 % 40.1-51.0 MEAN CORPUSCULAR VOLUME (BEAKER) (test wowf=758) 93.8 fL 79.0-92.2 MEAN CORPUSCULAR HEMOGLOBIN (BEAKER) (test 31.3 pg 25.7-32.2 zscp=846) MEAN CORPUSCULAR HEMOGLOBIN CONC (BEAKER) (test 33.3 GM/DL 32.3-36.5 hkmp=399) RED CELL DISTRIBUTION WIDTH (BEAKER) (test 13.4 % 11.6-14.4 cmpt=837) PLATELET COUNT (BEAKER) (test jvmo=020) 93 K/CU MM 150-450 MEAN PLATELET VOLUME (BEAKER) (test hcvq=215) 13.1 fL 9.4-12.4 NUCLEATED RED BLOOD CELLS (BEAKER) (test 0 /100 WBC 0-0 cldz=100) NEUTROPHILS RELATIVE PERCENT (BEAKER) (test 72 % irod=000) LYMPHOCYTES RELATIVE PERCENT (BEAKER) (test 18 % mkhk=793) MONOCYTES RELATIVE PERCENT (BEAKER) (test 8 % gsul=213) EOSINOPHILS RELATIVE PERCENT (BEAKER) (test 0 % smjc=839) BASOPHILS RELATIVE PERCENT (BEAKER) (test 0 % euth=487) NEUTROPHILS ABSOLUTE COUNT (BEAKER) (test 12.01 K/ L 1.78-5.38 cfnz=776) LYMPHOCYTES ABSOLUTE COUNT (BEAKER) (test 3.08 K/ L 1.32-3.57 ogpa=984) MONOCYTES ABSOLUTE COUNT (BEAKER) (test xgkw=769) 1.32 K/ L 0.30-0.82 EOSINOPHILS ABSOLUTE COUNT (BEAKER) (test 0.00 K/ L 0.04-0.54 xlko=308) BASOPHILS ABSOLUTE COUNT (BEAKER) (test enog=085) 0.07 K/ L 0.01-0.08 IMMATURE GRANULOCYTES-RELATIVE PERCENT (BEAKER) 1 % 0-1 (test jntw=9515) PROTHROMBIN [id number] 06:28:00 Test Item Value Reference Range Comments PROTIME (BEAKER) (test ksmf=755) 14.9 seconds 11.9-14.2 INR (BEAKER) (test vgwk=435) 1.2 <=5.9 Effective 01/20/2019: PT Reference Range ChangeNew: 11.9-14.2 Previous: 11.7- 14.7RECOMMENDED COUMADIN/WARFARIN INR THERAPY RANGESSTANDARD DOSE: 2.0-3.0 Includes: PROPHYLAXIS for venous thrombosis, systemic embolization; TREATMENT for venous thrombosis and/or pulmonary embolus.HIGH RISK: Target INR is2.5-3.5 for patients wiht mechanical heart valves.[id number] 06:28:00 Test Item Value Reference Range Comments PARTIAL THROMBOPLASTIN TIME (BEAKER) (test 30.5 seconds 22.5-36.0 nqdk=202) POCT-GLUCOSE [id number] 22:04:00 Test Item Value Reference Range Comments POC-GLUCOSE METER (BEAKER) 266 mg/dL 70-110 : TESTED AT [facility] [address] [facility] (test znuj=6725) [facility], [address]: Travel Journalist/Band Saw Operator [employer] UI=[id number] for HAYDEN TIERRA CT, CHEST, WITHOUT [id number] 19:22:00Referring: Dr. Baltazar Olson REPORT Chest CT without contrast CLINICAL HISTORY: Orthotopic liver transit with possible pneumonia. TECHNIQUE: Contiguous axial images of the chest without contrast. Thisexam was performed according to the departmental dose optimization program which includes automated exposure control , adjustment of the mA and/or kV according to the patient size, and/or use of an iterative reconstruction technique. COMPARISON: None FINDINGS:Moderate to large bilateral pleural effusions with adjacent consolidative airspace opacity in the bilateral lower lobes favored represent passive atelectasis however superimposed infection cannot be excluded. No pneumothorax. No suspicious pulmonary nodules. Right upper extremity PICC with tip terminating in the distal SVC.The heart and thoracic aorta are normal in size. Main pulmonary artery is enlarged measuring up to 37 mm which can be seenin the setting of pulmonary arterial hypertension. Mitral annular calcifications. There is no evidence of axillary, mediastinal, or hilar lymphadenopathy. The esophagus is normal in caliber. The chest is unremarkable. Trace pneumomediastinum anteriorly and superiorly within the mediastinum. Soft tissues are unremarkable. No aggressive osseous lesions or acute fractures. Mild multilevel degenerative changes of the thoracic spine. Postsurgical changes of an orthotopic liver transplant with incompletely evaluated inflammatory stranding in the region of the cory hepatis, possibly postsurgical however correlate clinically.Unchanged 3.2 cm left adrenal nodule previously described as an adenoma on priorMRI of the abdomen. Borderline splenomegaly with the spleen measuring up to 13 cm in the greatest craniocaudal dimension. Surgical skin philly over the anterior abdomen and chest wall. Trace associated subcutaneous emphysema. IMPRESSION: Moderate to large bilateral pleural effusions with adjacent consolidative airspace opacity in the bilateral lower lobes favored represent passive atelectasis however superimposed infection cannot be excluded. Postsurgical changes of an orthotopic liver transplant with incompletely evaluated inflammatory stranding the region of the cory hepatis, possibly postsurgical however correlate clinically. Trace pneumomediastinum anteriorly and superiorly within the mediastinum possibly postsurgical however recommend close attention on follow-up imaging. Main pulmonary artery is enlarged measuring up to 37 mm which can be seen in the setting of pulmonary arterial hypertension. Signed: Kami Peters Verified Date/Time : 08/05/2019 19:22:43 POCT-GLUCOSE [id number] 17:40:00 Test Item Value Reference Range Comments POC-GLUCOSE METER (BEAKER) 248 mg/dL 70-110 : Notified RN/MD: TESTED AT (test eupj=4810) [facility] [address] [facility], [address]: Travel Journalist/Band Saw Operator [employer] QH=[id number] for AUBREE MARES, CHEST, PA OR AP, 1 [id number] 16:32:00Referring: Dr. Baltazar Bailey/ Infusion Therapy Nurse to Call Radiology Department when patient is readyReason for exam:->placement of lineFINAL REPORT INDICATION: Line placement. COMPARISON: August 05 at 6:52 AM. TECHNIQUE: Chest radiograph one view. FINDINGS / IMPRESSION:Interval placement of a right PICC line which terminates at the cavoatrial junction. Bilateral layering pleural effusions are again demonstrated. No definite focal lung abnormality. No pneumothorax. Signed : Charlie Kuo Verified Date/Time: 08/05/2019 16:32:51 Reading Location: [facility] Mammo Reading Room [id number] 15:56:00 Test Item Value Reference Range Comments MAGNESIUM (BEAKER) (test 1.9 mg/dL 1.6-2.6 Specimen slightly hemolyzed dtav=912) [id number] 15:56:00 Test Item Value Reference Range Comments PHOSPHORUS (BEAKER) (test 4.2 mg/dL 2.3-4.7 Specimen slightly hemolyzed tsvt=418) BASIC METABOLIC [id number] 15:56:00 Test Item Value Reference Range Comments SODIUM (BEAKER) (test 138 meq/L 136-145 mcro=620) POTASSIUM (BEAKER) (test 4.8 meq/L 3.5-5.1 Specimen slightly fase=962) hemolyzed CHLORIDE (BEAKER) (test 103 meq/L 98-107 whhp=253) CO2 (BEAKER) (test 29 meq/L 22-29 ohne=195) BLOOD UREA NITROGEN 35 mg/dL 7-21 (BEAKER) (test zpmh=382) CREATININE (BEAKER) (test 0.80 mg/dL 0.57-1.25 Specimen slightly vlmw=729) hemolyzed GLUCOSE RANDOM (BEAKER) 215 mg/dL 70-105 (test ohng=324) CALCIUM (BEAKER) (test 8.5 mg/dL 8.4-10.2 fmcz=560) EGFR (BEAKER) (test 98 mL/min/1.73 sq m ESTIMATED GFR IS NOT aaue=7806) ACCURATE CREATININE CLEARANCE IN PREDICTING GLOMERULAR FILTRATION RATE. ESTIMATED GFR IS NOT APPLICABLE FOR DIALYSIS PATIENTS. HEPATIC FUNCTION [id number] 15:56:00 Test Item Value Reference Range Comments TOTAL PROTEIN (BEAKER) (test 5.5 gm/dL 6.0-8.3 Specimen slightly hemolyzed goii=535) ALBUMIN (BEAKER) (test 3.4 g/dL 3.5-5.0 Specimen slightly hemolyzed wdbc=2390) BILIRUBIN TOTAL (BEAKER) (test 1.6 mg/dL 0.2-1.2 Specimen slightly hemolyzed iyxo=967) BILIRUBIN DIRECT (BEAKER) (test 0.6 mg/dL 0.1-0.5 Specimen slightly hemolyzed kqux=089) ALKALINE PHOSPHATASE (BEAKER) 118 U/L 40-150 (test lahj=816) AST (SGOT) (BEAKER) (test 65 U/L 5-34 Specimen slightly hemolyzed jtlu=118) ALT (SGPT) (BEAKER) (test 254 U/L 6-55 Specimen slightly hemolyzed wpmt=283) POCT-GLUCOSE [id number] 12:21:00 Test Item Value Reference Range Comments POC-GLUCOSE METER (BEAKER) 196 mg/dL 70-110 : Notified RN/MD: TESTED AT (test himk=3619) [address], [address]: Travel Journalist/Band Saw Operator [employer] BU=[id number] for MARES, AUBREE POCT-LACTIC ACID, [id number] 12:16:00 Test Item Value Reference Range Comments POC-LACTIC ACID, ARTERIAL 1.4 mmol/L 0.4-1.3 [address]ED AT [address] ([facility]) (test azax=7838) [facility] [address] POCT-BLOOD GASES, [id number] 12:16:00 Test Item Value Reference Range Comments TEMP, CELSIUS-POC (BEAKER) 37.0 (test ogac=2230) FIO2-POC (BEAKER) (test TESTED AT [address] ggnf=0575) [facility] [address] PH, ARTERIAL-POC (BEAKER) 7.456 7.350-7.450 (test hgoe=1216) PCO2, ARTERIAL-POC (BEAKER) 39.5 mm Hg 35.0-45.0 (test uyfm=8200) PO2, ARTERIAL-POC (BEAKER) 113.0 mm Hg 80.0-90.0 (test cico=4039) SO2, ARTERIAL-POC (BEAKER) 99.0 % 96.0-97.0 (test hgbx=0869) HCO3, ARTERIAL-POC (BEAKER) 27.8 meq/L 21.0-29.0 (test twgi=4531) BASE EXCESS, ARTERIAL-POC 4.0 meq/L -2.0-3.0 (BEAKER) (test ngtt=7223) [id number] 12:16:00 Test Item Value Reference Range Comments POC-SODIUM (BEAKER) (test 135 meq/L 135-148 TESTED AT [address] wiih=0625) [facility] [address] [id number] 12:16:00 Test Item Value Reference Range Comments POC-POTASSIUM (BEAKER) (test 4.1 meq/L 3.6-5.5 TESTED AT [address] apud=0079) [place] [id number] 12:16:00 Test Item Value Reference Range Comments POC-GLUCOSE (BEAKER) (test 218 mg/dL 70-110 TESTED AT [address] wdxx=6280) [place] [address] POCT-CALCIUM [id number] 12:16:00 Test Item Value Reference Range Comments POC-CALCIUM IONIZED (BEAKER) 1.20 mmol/L 1.12-1.27 TESTED AT [address] (test yfyc=5747) [place] [address] [id number] 12:16:00 Test Item Value Reference Range Comments POC-HEMATOCRIT (BEAKER) (test 45 % 40-50 TESTED AT [address] simf=3687) [place] [address] [id number] 12:16:00 Test Item Value Reference Range Comments POC-HEMOGLOBIN (BEAKER) 15.3 g/dL 13.0-16.8 TESTED AT [address] (test jvyt=3765) [place] [address]TESTED AT [place] [address] TACROLIMUS [id number] 11:25:00 Test Item Value Reference Range Comments TACROLIMUS BLOOD (BEAKER) (test btxx=469) 22.2 ng/mL 10.0-20.0 RAD, CHEST, 1 VIEW, NON [id number] 10:46:00Referring: Dr. Baltazar Rivera for exam:->fluid overloadFINAL REPORT RAD, CHEST, 1 VIEW, NON DEPT INDICATION: fluid overload COMPARISON: Prior day's exam FINDINGS : Portable frontal view of the chest. IMPRESSION: Support Lines: NoneLungs and pleura: Bilateral lower lobe airspace disease is not significantly changed No pneumothorax.Heart and mediastinum: Stable contours. Additional findings: None. Signed: Tori Mendez Verified Date/Time: 08/05/2019 10:46: 14 Reading Location: [facility] Radiology Reading Room CBC W/PLT COUNT & amp; AUTO [id number] 10:18:00 Test Item Value Reference Range Comments WHITE BLOOD CELL COUNT (BEAKER) (test brdm=514) 18.7 K/ L 3.5-10.5 RED BLOOD CELL COUNT (BEAKER) (test chzn=106) 4.97 M/ L 4.63-6.08 HEMOGLOBIN (BEAKER) (test ytze=751) 15.5 GM/DL 13.7-17.5 HEMATOCRIT (BEAKER) (test benn=301) 46.8 % 40.1-51.0 MEAN CORPUSCULAR VOLUME (BEAKER) (test hyrl=254) 94.2 fL 79.0-92.2 MEAN CORPUSCULAR HEMOGLOBIN (BEAKER) (test 31.2 pg 25.7-32.2 lwjv=307) MEAN CORPUSCULAR HEMOGLOBIN CONC (BEAKER) (test 33.1 GM/DL 32.3-36.5 jpov=228) RED CELL DISTRIBUTION WIDTH (BEAKER) (test 13.2 % 11.6-14.4 ntki=499) PLATELET COUNT (BEAKER) (test njvn=288) 106 K/CU MM 150-450 MEAN PLATELET VOLUME (BEAKER) (test euds=972) 12.9 fL 9.4-12.4 NUCLEATED RED BLOOD CELLS (BEAKER) (test 0 /100 WBC 0-0 wxvg=766) (CELLAVISION MANUAL DIFF)2019-08-05 10:18:00 Test Item Value Reference Range Comments NEUTROPHILS - REL (CELLAVISION)(BEAKER) (test 80 % hwrw=8836) LYMPHOCYTES - REL (CELLAVISION)(BEAKER) (test 8 % niny=7759) MONOCYTES - REL (CELLAVISION)(BEAKER) (test 8 % mmyf=0904) EOSINOPHILS - REL (CELLAVISION)(BEAKER) (test 1 % bcha=0834) ATYPICAL LYMPHOCYTES - REL (CELLAVISION)(BEAKER) 3 % 0-0 (test vwfq=7298) NEUTROPHILS - ABS (CELLAVISION)(BEAKER) (test 14.96 K/ul 1.78-5.38 opod=2920) LYMPHOCYTES - ABS (CELLAVISION)(BEAKER) (test 1.50 K/ul 1.32-3.57 azue=9545) MONOCYTES - ABS (CELLAVISION)(BEAKER) (test 1.50 K/uL 0.30-0.82 xjst=1924) EOSINOPHILS - ABS (CELLAVISION)(BEAKER) (test 0.19 K/uL 0.04-0.54 psyk=2445) ATYPICAL LYMPHOCYTES - ABS (CELLAVISION)(BEAKER) 0.56 K/uL 0.00-0.00 (test spvn=9342) TOTAL COUNTED (BEAKER) (test jpfu=0074) 100 RBC MORPHOLOGY (BEAKER) (test yugl=806) Normal WBC MORPHOLOGY (BEAKER) (test hmzg=334) Normal PLT MORPHOLOGY (BEAKER) (test eftc=772) Normal ARTIFACT (CELLAVISION)(BEAKER) (test dreb=4756) Present PLATELET CONCENTRATION (CELLAVISION)(BEAKER) Decreased (test bdag=0212) Received comment: User comments: Slide comments:PROTHROMBIN TIME/[id number] 09:20:00 Test Item Value Reference Range Comments PROTIME (BEAKER) (test nszf=814) 14.7 seconds 11.9-14.2 INR (BEAKER) (test ijkd=584) 1.2 <=5.9 Effective 01/20/2019: PT Reference Range ChangeNew: 11.9-14.2 Previous: 11.7- 14.7RECOMMENDED COUMADIN/WARFARIN INR THERAPY RANGESSTANDARD DOSE: 2.0-3.0 Includes: PROPHYLAXIS for venous thrombosis, systemic embolization; TREATMENT for venous thrombosis and/or pulmonary embolus.HIGH RISK: Target INR is2.5-3.5 for patients wiht mechanical heart valves.[id number] 09:20:00 Test Item Value Reference Range Comments PARTIAL THROMBOPLASTIN TIME (BEAKER) (test 27.9 seconds 22.5-36.0 hwct=726) URINE [id number] 09:15:00 Test Item Value Reference Range Comments CULTURE (BEAKER) (test elth=4561) No growth POCT-GLUCOSE [id number] 08:14:00 Test Item Value Reference Range Comments POC-GLUCOSE METER (BEAKER) 147 mg/dL 70-110 : Notified RN/MD: TESTED AT (test qpkv=8765) [facility] [address] [facility], [address]: Travel Journalist/Band Saw Operator [employer] KN=[id number] for AUBREE MARES POCT-GLUCOSE [id number] 21:14:00 Test Item Value Reference Range Comments POC-GLUCOSE METER (BEAKER) 292 mg/dL 70-110 : TESTED AT [place] [id number] [facility] (test gfhw=5715) [facility], [address]: Travel Journalist/Band Saw Operator [employer] WM=[id number] for TIERRA BLAKE POCT-GLUCOSE [id number] 17:38:00 Test Item Value Reference Range Comments POC-GLUCOSE METER (BEAKER) 250 mg/dL 70-110 : TESTED AT [address] (test yyzg=1022) [facility], [address]: Travel Journalist/Band Saw Operator [employer] BN=[id number] for ELVIN OSHEA CBC W/PLT COUNT & AUTO [id number] 13:23:00 Test Item Value Reference Range Comments WHITE BLOOD CELL COUNT (BEAKER) (test etbw=544) 16.8 K/ L 3.5-10.5 RED BLOOD CELL COUNT (BEAKER) (test bzxr=365) 5.00 M/ L 4.63-6.08 HEMOGLOBIN (BEAKER) (test qssp=688) 15.7 GM/DL 13.7-17.5 HEMATOCRIT (BEAKER) (test hhfd=600) 46.6 % 40.1-51.0 MEAN CORPUSCULAR VOLUME (BEAKER) (test uthg=158) 93.2 fL 79.0-92.2 MEAN CORPUSCULAR HEMOGLOBIN (BEAKER) (test 31.4 pg 25.7-32.2 jmxt=653) MEAN CORPUSCULAR HEMOGLOBIN CONC (BEAKER) (test 33.7 GM/DL 32.3-36.5 vaab=409) RED CELL DISTRIBUTION WIDTH (BEAKER) (test 13.2 % 11.6-14.4 iidz=084) PLATELET COUNT (BEAKER) (test jznf=672) 104 K/CU MM 150-450 MEAN PLATELET VOLUME (BEAKER) (test pzvz=965) 12.4 fL 9.4-12.4 NUCLEATED RED BLOOD CELLS (BEAKER) (test 0 /100 WBC 0-0 vawp=553) NEUTROPHILS RELATIVE PERCENT (BEAKER) (test 85 % hqqy=754) LYMPHOCYTES RELATIVE PERCENT (BEAKER) (test 8 % vjlw=096) MONOCYTES RELATIVE PERCENT (BEAKER) (test 6 % zvgh=952) EOSINOPHILS RELATIVE PERCENT (BEAKER) (test 0 % ylms=280) BASOPHILS RELATIVE PERCENT (BEAKER) (test 0 % uzet=659) NEUTROPHILS ABSOLUTE COUNT (BEAKER) (test 14.17 K/ L 1.78-5.38 yddv=847) LYMPHOCYTES ABSOLUTE COUNT (BEAKER) (test 1.31 K/ L 1.32-3.57 uqjk=322) MONOCYTES ABSOLUTE COUNT (BEAKER) (test 1.08 K/ L 0.30-0.82 vhmc=212) EOSINOPHILS ABSOLUTE COUNT (BEAKER) (test 0.00 K/ L 0.04-0.54 xlyg=390) BASOPHILS ABSOLUTE COUNT (BEAKER) (test 0.04 K/ L 0.01-0.08 ejjf=977) IMMATURE GRANULOCYTES-RELATIVE PERCENT (BEAKER) 1 % 0-1 (test plsk=4260) POCT-GLUCOSE [id number] 11:48:00 Test Item Value Reference Range Comments POC-GLUCOSE METER (BEAKER) 250 mg/dL 70-110 : TESTED AT [facility] [address] [facility] (test vbyt=1295) [facility], [address]: Travel Journalist/[employer] YL=[id number] for [place] [employer] [id number] 11:48:00 Test Item Value Reference Range Comments TACROLIMUS BLOOD (BEAKER) (test gyuz=833) 13.8 ng/mL 10.0-20.0 BASIC METABOLIC [id number] 10:45:00 Test Item Value Reference Range Comments SODIUM (BEAKER) (test 138 meq/L 136-145 egmz=437) POTASSIUM (BEAKER) (test 4.4 meq/L 3.5-5.1 Specimen slightly bdad=410) hemolyzed CHLORIDE (BEAKER) (test 104 meq/L 98-107 whqn=740) CO2 (BEAKER) (test 27 meq/L 22-29 ttmg=117) BLOOD UREA NITROGEN 39 mg/dL 7-21 (BEAKER) (test oxjr=794) CREATININE (BEAKER) (test 0.79 mg/dL 0.57-1.25 Specimen slightly ckmu=498) hemolyzed GLUCOSE RANDOM (BEAKER) 261 mg/dL 70-105 (test xwci=813) CALCIUM (BEAKER) (test 8.5 mg/dL 8.4-10.2 vhyg=330) EGFR (BEAKER) (test 99 mL/min/1.73 sq m ESTIMATED GFR IS NOT lxyi=2060) ACCURATE CREATININE CLEARANCE IN PREDICTING GLOMERULAR FILTRATION RATE. ESTIMATED GFR IS NOT APPLICABLE FOR DIALYSIS PATIENTS. [id number] 10:45:00 Test Item Value Reference Range Comments MAGNESIUM (BEAKER) (test 2.1 mg/dL 1.6-2.6 Specimen slightly hemolyzed wose=550) [id number] 10:45:00 Test Item Value Reference Range Comments PHOSPHORUS (BEAKER) (test 3.0 mg/dL 2.3-4.7 Specimen slightly hemolyzed siwp=366) HEPATIC FUNCTION [id number] 10:45:00 Test Item Value Reference Range Comments TOTAL PROTEIN (BEAKER) (test 5.8 gm/dL 6.0-8.3 Specimen slightly hemolyzed ycwr=912) ALBUMIN (BEAKER) (test 3.6 g/dL 3.5-5.0 Specimen slightly hemolyzed muxl=7680) BILIRUBIN TOTAL (BEAKER) (test 1.6 mg/dL 0.2-1.2 Specimen slightly hemolyzed rowx=141) BILIRUBIN DIRECT (BEAKER) (test 0.5 mg/dL 0.1-0.5 Specimen slightly hemolyzed apvx=807) ALKALINE PHOSPHATASE (BEAKER) 96 U/L 40-150 (test mkhf=985) AST (SGOT) (BEAKER) (test 77 U/L 5-34 Specimen slightly hemolyzed rdfd=867) ALT (SGPT) (BEAKER) (test 302 U/L 6-55 Specimen slightly hemolyzed vegi=713) [id number] 10:25:00 Test Item Value Reference Range Comments PARTIAL THROMBOPLASTIN TIME (BEAKER) (test 26.2 seconds 22.5-36.0 wydr=067) PROTHROMBIN [id number] 10:24:00 Test Item Value Reference Range Comments PROTIME (BEAKER) (test mqep=262) 14.2 seconds 11.9-14.2 INR (BEAKER) (test heuy=002) 1.2 <=5.9 Effective 01/20/2019: PT Reference Range ChangeNew: 11.9-14.2 Previous: 11.7- 14.7RECOMMENDED COUMADIN/WARFARIN INR THERAPY RANGESSTANDARD DOSE: 2.0-3.0 Includes: PROPHYLAXIS for venous thrombosis, systemic embolization; TREATMENT for venous thrombosis and/or pulmonary embolus.HIGH RISK: Target INR is2.5-3.5 for patients wiht mechanical heart valves.POCT-GLUCOSE [id number] 10:17:00 Test Item Value Reference Range Comments POC-GLUCOSE METER (BEAKER) 254 mg/dL 70-110 : TESTED AT [address] (test lbck=4888) [facility], [address]: Travel Journalist/Band Saw Operator [employer] YW=[id number] for [place] VALENTINO RAD, CHEST, 1 VIEW, NON [id number] 07:33:00Referring: Dr. Baltazar Rivera for exam:->fluid overloadFINAL REPORT RAD, CHEST, 1 VIEW, NON DEPT INDICATION: fluid overload COMPARISON: August 03, 2019 FINDINGS : Portable frontal view of the chest. IMPRESSION: Support Lines: None Lungs and pleura: Bilateral lower lobe airspace disease is unchanged No pneumothorax.Heart and mediastinum: Stable contours. Additional findings: None. Signed: Tori Mendez Verified Date/Time: 08/04/2019 07:33:09 Reading Location: [facility] Radiology Reading Room POCT-GLUCOSE [id number] 19:47:00 Test Item Value Reference Range Comments POC-GLUCOSE METER (BEAKER) 286 mg/dL 70-110 : TESTED AT [address] (test qqjk=4108) [facility], [address]: Travel Journalist/Band Saw Operator [employer] GW=[id number] for ZACK TONEY BLOOD GAS, [id number] 18:02:00 Test Item Value Reference Range Comments PH ARTERIAL (BEAKER) (test nxzk=185) 7.51 7.35-7.45 PCO2 ARTERIAL (BEAKER) (test lyap=253) 32 mmHg 35-45 PO2 ARTERIAL (BEAKER) (test oudy=461) 66 mmHg 80-90 O2 SATURATION ARTERIAL (BEAKER) (test yfcg=708) 95.1 % 96.0-97.0 HCO3 ARTERIAL (BEAKER) (test lnao=922) 25 mmol/L 21-29 BASE EXCESS ARTERIAL (BEAKER) (test ncbz=069) 2.1 mmol/L -2.0-3.0 PATIENT TEMPERATURE (BEAKER) (test mqav=9564) 36.7 C FIO2 (BEAKER) (test pcwx=9426) 21.0 % POCT-GLUCOSE [id number] 14:19:00 Test Item Value Reference Range Comments POC-GLUCOSE METER (BEAKER) 354 mg/dL 70-110 : TESTED AT [facility] [address] [facility] (test lipf=6538) [facility], [address]: Travel Journalist/Band Saw Operator [employer] DA=[id number] for MON[place] VALENTINO TACROLIMUS [id number] 11:54:00 Test Item Value Reference Range Comments TACROLIMUS BLOOD (BEAKER) (test dbmz=509) 14.1 ng/mL 10.0-20.0 RAD, CHEST, 1 VIEW, NON [id number] 11:08:00Referring: Dr. Baltazar Rivera for exam:->SOBShould this be performed at the bedside?->YesFINAL REPORT RAD, CHEST, 1 VIEW, NON DEPT INDICATION: SOB COMPARISON: July 30, 2019 FINDINGS: Portable frontal view of the chest. IMPRESSION: Support Lines: External leads Lungs and pleura: Bilateral effusions, right greater than left are increased from prior exam No pneumothorax.Heart and mediastinum: Stable contours. Additional findings: None. Signed: Tori Mendez Verified Date/Time: 08/03/2019 11:08:13 Reading Location: [facility] Radiology Reading Room CBC W/PLT COUNT & AUTO [id number] 07:42:00 Test Item Value Reference Range Comments WHITE BLOOD CELL COUNT (BEAKER) (test xucd=729) 16.3 K/ L 3.5-10.5 RED BLOOD CELL COUNT (BEAKER) (test nyam=921) 4.85 M/ L 4.63-6.08 HEMOGLOBIN (BEAKER) (test lwxh=545) 15.3 GM/DL 13.7-17.5 HEMATOCRIT (BEAKER) (test ctnv=114) 46.5 % 40.1-51.0 MEAN CORPUSCULAR VOLUME (BEAKER) (test xlju=507) 95.9 fL 79.0-92.2 MEAN CORPUSCULAR HEMOGLOBIN (BEAKER) (test 31.5 pg 25.7-32.2 yigl=701) MEAN CORPUSCULAR HEMOGLOBIN CONC (BEAKER) (test 32.9 GM/DL 32.3-36.5 ztcm=116) RED CELL DISTRIBUTION WIDTH (BEAKER) (test 13.2 % 11.6-14.4 noqx=340) PLATELET COUNT (BEAKER) (test ebsd=735) 152 K/CU MM 150-450 MEAN PLATELET VOLUME (BEAKER) (test kjva=206) 11.7 fL 9.4-12.4 NUCLEATED RED BLOOD CELLS (BEAKER) (test 0 /100 WBC 0-0 bkbn=857) NEUTROPHILS RELATIVE PERCENT (BEAKER) (test 85 % mrbo=594) LYMPHOCYTES RELATIVE PERCENT (BEAKER) (test 6 % oivy=634) MONOCYTES RELATIVE PERCENT (BEAKER) (test 7 % yeun=354) EOSINOPHILS RELATIVE PERCENT (BEAKER) (test 0 % wzrh=659) BASOPHILS RELATIVE PERCENT (BEAKER) (test 0 % isgs=829) NEUTROPHILS ABSOLUTE COUNT (BEAKER) (test 13.78 K/ L 1.78-5.38 okeu=241) LYMPHOCYTES ABSOLUTE COUNT (BEAKER) (test 1.00 K/ L 1.32-3.57 oeqv=065) MONOCYTES ABSOLUTE COUNT (BEAKER) (test 1.18 K/ L 0.30-0.82 vrbi=975) EOSINOPHILS ABSOLUTE COUNT (BEAKER) (test 0.00 K/ L 0.04-0.54 ntwv=936) BASOPHILS ABSOLUTE COUNT (BEAKER) (test 0.02 K/ L 0.01-0.08 cqnu=656) IMMATURE GRANULOCYTES-RELATIVE PERCENT (BEAKER) 2 % 0-1 (test rwph=2330) POCT-GLUCOSE [id number] 07:37:00 Test Item Value Reference Range Comments POC-GLUCOSE METER (BEAKER) 281 mg/dL 70-110 : TESTED AT [address] (test ktcf=0708) [facility], [address]: Travel Journalist/Band Saw Operator [employer] GC=[id number] for [place] VALENTINO [id number] 07:26:00 Test Item Value Reference Range Comments MAGNESIUM (BEAKER) (test 2.4 mg/dL 1.6-2.6 Specimen moderately hemolyzed gokr=161) [id number] 07:26:00 Test Item Value Reference Range Comments PHOSPHORUS (BEAKER) (test 2.6 mg/dL 2.3-4.7 Specimen moderately hemolyzed wumo=645) BASIC METABOLIC [id number] 07:26:00 Test Item Value Reference Range Comments SODIUM (BEAKER) (test 137 meq/L 136-145 tbcp=550) POTASSIUM (BEAKER) (test 4.8 meq/L 3.5-5.1 Specimen moderately mcjg=678) hemolyzed CHLORIDE (BEAKER) (test 103 meq/L 98-107 bqpz=752) CO2 (BEAKER) (test 26 meq/L 22-29 btoh=436) BLOOD UREA NITROGEN 36 mg/dL 7-21 (BEAKER) (test dkup=007) CREATININE (BEAKER) (test 0.98 mg/dL 0.57-1.25 Specimen moderately mgjj=255) hemolyzed GLUCOSE RANDOM (BEAKER) 299 mg/dL 70-105 (test zjyt=330) CALCIUM (BEAKER) (test 8.3 mg/dL 8.4-10.2 sipp=283) EGFR (BEAKER) (test 78 mL/min/1.73 sq m ESTIMATED GFR IS NOT hwti=8647) ACCURATE CREATININE CLEARANCE IN PREDICTING GLOMERULAR FILTRATION RATE. ESTIMATED GFR IS NOT APPLICABLE FOR DIALYSIS PATIENTS. PROTHROMBIN [id number] 07:01:00 Test Item Value Reference Range Comments PROTIME (BEAKER) (test cqvq=584) 14.7 seconds 11.9-14.2 INR (BEAKER) (test ucqd=399) 1.2 <=5.9 Effective 01/20/2019: PT Reference Range ChangeNew: 11.9-14.2 Previous: 11.7- 14.7RECOMMENDED COUMADIN/WARFARIN INR THERAPY RANGESSTANDARD DOSE: 2.0-3.0 Includes: PROPHYLAXIS for venous thrombosis, systemic embolization; TREATMENT for venous thrombosis and/or pulmonary embolus.HIGH RISK: Target INR is2.5-3.5 for patients wiht mechanical heart valves.[id number] 07:01:00 Test Item Value Reference Range Comments PARTIAL THROMBOPLASTIN TIME (BEAKER) (test 26.0 seconds 22.5-36.0 ijxh=033) POCT-GLUCOSE [id number] 21:21:00 Test Item Value Reference Range Comments POC-GLUCOSE METER (BEAKER) 285 mg/dL 70-110 : TESTED AT [address] (test zhoc=9967) [facility], [address]: Travel Journalist/Band Saw Operator [employer] EB=[id number] for MARIEL HERNANDEZ POCT-GLUCOSE [id number] 17:20:00 Test Item Value Reference Range Comments POC-GLUCOSE METER (BEAKER) 265 mg/dL 70-110 : Notified RN/MD: TESTED AT (test mnet=5592) [address], [address]: Travel Journalist/Band Saw Operator [employer] DG=[id number] for AUBREE MARES [id number] 12:14:00 Test Item Value Reference Range Comments T3 TOTAL (BEAKER) (test nged=784) 97 ng/dL 48-159 POCT-GLUCOSE [id number] 11:29:00 Test Item Value Reference Range Comments POC-GLUCOSE METER (BEAKER) 220 mg/dL 70-110 : Notified RN/MD: TESTED AT (test xxsg=2423) [address], [address]: Travel Journalist/Band Saw Operator [employer] MG=[id number] for AUBREE MARES TACROLIMUS [id number] 10:27:00 Test Item Value Reference Range Comments TACROLIMUS BLOOD (BEAKER) (test jlsj=949) 7.8 ng/mL 10.0-20.0 T4, [id number] 07:36:00 Test Item Value Reference Range Comments FREE T4 (BEAKER) (test pzpy=898) 1.01 ng/dL 0.70-1.48 TSH/FREE T4 IF [id number] 06:58:00 Test Item Value Reference Range Comments THYROID STIMULATING HORMONE (BEAKER) (test 0.35 uIU/mL 0.35-4.94 cpkk=033) CBC W/PLT COUNT & AUTO [id number] 06:55:00 Test Item Value Reference Range Comments WHITE BLOOD CELL COUNT (BEAKER) (test nyws=112) 15.1 K/ L 3.5-10.5 RED BLOOD CELL COUNT (BEAKER) (test rcbl=045) 4.26 M/ L 4.63-6.08 HEMOGLOBIN (BEAKER) (test hrvv=385) 13.4 GM/DL 13.7-17.5 HEMATOCRIT (BEAKER) (test ubcq=959) 40.6 % 40.1-51.0 MEAN CORPUSCULAR VOLUME (BEAKER) (test cepl=580) 95.3 fL 79.0-92.2 MEAN CORPUSCULAR HEMOGLOBIN (BEAKER) (test 31.5 pg 25.7-32.2 enpp=388) MEAN CORPUSCULAR HEMOGLOBIN CONC (BEAKER) (test 33.0 GM/DL 32.3-36.5 lfyj=260) RED CELL DISTRIBUTION WIDTH (BEAKER) (test 13.2 % 11.6-14.4 nmaq=617) PLATELET COUNT (BEAKER) (test xbur=837) 97 K/CU MM 150-450 MEAN PLATELET VOLUME (BEAKER) (test mcne=537) 11.7 fL 9.4-12.4 NUCLEATED RED BLOOD CELLS (BEAKER) (test 0 /100 WBC 0-0 gczh=464) NEUTROPHILS RELATIVE PERCENT (BEAKER) (test 89 % ikdd=036) LYMPHOCYTES RELATIVE PERCENT (BEAKER) (test 5 % svgc=991) MONOCYTES RELATIVE PERCENT (BEAKER) (test 5 % pryw=851) EOSINOPHILS RELATIVE PERCENT (BEAKER) (test 0 % rvbu=920) BASOPHILS RELATIVE PERCENT (BEAKER) (test 0 % vxlu=247) NEUTROPHILS ABSOLUTE COUNT (BEAKER) (test 13.46 K/ L 1.78-5.38 dqxx=130) LYMPHOCYTES ABSOLUTE COUNT (BEAKER) (test 0.72 K/ L 1.32-3.57 whhh=017) MONOCYTES ABSOLUTE COUNT (BEAKER) (test mgio=792) 0.81 K/ L 0.30-0.82 EOSINOPHILS ABSOLUTE COUNT (BEAKER) (test 0.00 K/ L 0.04-0.54 qyza=329) BASOPHILS ABSOLUTE COUNT (BEAKER) (test oojg=201) 0.02 K/ L 0.01-0.08 IMMATURE GRANULOCYTES-RELATIVE PERCENT (BEAKER) 1 % 0-1 (test qjmh=0811) [id number] 06:48:00 Test Item Value Reference Range Comments PREALBUMIN (BEAKER) (test aqhj=059) 18 mg/dL 14-45 IMMUNOGLOBULIN G (IGG)[id number] 06:48:00 Test Item Value Reference Range Comments IMMUNOGLOBULIN G (IGG) (BEAKER) (test wywt=115) 394 mg/dL 540-1,822 [id number] 06:34:00 Test Item Value Reference Range Comments PHOSPHORUS (BEAKER) (test uzoi=802) 2.1 mg/dL 2.3-4.7 [id number] 06:34:00 Test Item Value Reference Range Comments MAGNESIUM (BEAKER) (test evfq=036) 2.3 mg/dL 1.6-2.6 BASIC METABOLIC [id number] 06:34:00 Test Item Value Reference Range Comments SODIUM (BEAKER) (test 137 meq/L 136-145 aave=292) POTASSIUM (BEAKER) (test 4.5 meq/L 3.5-5.1 qjjx=957) CHLORIDE (BEAKER) (test 104 meq/L 98-107 nrih=450) CO2 (BEAKER) (test 27 meq/L 22-29 uleh=986) BLOOD UREA NITROGEN 32 mg/dL 7-21 (BEAKER) (test duqh=702) CREATININE (BEAKER) (test 0.74 mg/dL 0.57-1.25 wlop=134) GLUCOSE RANDOM (BEAKER) 267 mg/dL 70-105 (test unpb=894) CALCIUM (BEAKER) (test 8.1 mg/dL 8.4-10.2 rfdl=400) EGFR (BEAKER) (test 107 mL/min/1.73 sq m ESTIMATED GFR IS NOT brwc=1836) ACCURATE CREATININE CLEARANCE IN PREDICTING GLOMERULAR FILTRATION RATE. ESTIMATED GFR IS NOT APPLICABLE FOR DIALYSIS PATIENTS. HEPATIC FUNCTION [id number] 06:34:00 Test Item Value Reference Range Comments TOTAL PROTEIN (BEAKER) (test jxhp=735) 5.2 gm/dL 6.0-8.3 ALBUMIN (BEAKER) (test qewg=6252) 3.4 g/dL 3.5-5.0 BILIRUBIN TOTAL (BEAKER) (test pger=608) 0.8 mg/dL 0.2-1.2 BILIRUBIN DIRECT (BEAKER) (test npfi=778) 0.4 mg/dL 0.1-0.5 ALKALINE PHOSPHATASE (BEAKER) (test ogcc=913) 82 U/L 40-150 AST (SGOT) (BEAKER) (test gvao=702) 85 U/L 5-34 ALT (SGPT) (BEAKER) (test cqiy=618) 244 U/L 6-55 [id number] 06:30:00 Test Item Value Reference Range Comments PARTIAL THROMBOPLASTIN TIME (BEAKER) (test 28.0 seconds 22.5-36.0 ovru=739) PROTHROMBIN [id number] 06:29:00 Test Item Value Reference Range Comments PROTIME (BEAKER) (test ofuh=408) 15.9 seconds 11.9-14.2 INR (BEAKER) (test uqxt=706) 1.3 <=5.9 Effective 01/20/2019: PT Reference Range ChangeNew: 11.9-14.2 Previous: 11.7- 14.7RECOMMENDED COUMADIN/WARFARIN INR THERAPY RANGESSTANDARD DOSE: 2.0-3.0 Includes: PROPHYLAXIS for venous thrombosis, systemic embolization; TREATMENT for venous thrombosis and/or pulmonary embolus.HIGH RISK: Target INR is2.5-3.5 for patients wiht mechanical heart valves.POCT-GLUCOSE [id number] 06:05:00 Test Item Value Reference Range Comments POC-GLUCOSE METER (BEAKER) 240 mg/dL 70-110 : TESTED AT [address] (test bkck=3301) [facility], [address]: Travel Journalist/[employer] ZQ=[id number] for MP-OSHEA, ABAD POCT-GLUCOSE [id number] 20:54:00 Test Item Value Reference Range Comments POC-GLUCOSE METER (BEAKER) 360 mg/dL 70-110 : TESTED AT [address] (test lzam=5772) [facility], [address]: Travel Journalist/[employer] Operator [employer] BG=[id number] for MP-OSHEA, ABAD POCT-GLUCOSE [id number] 17:18:00 Test Item Value Reference Range Comments POC-GLUCOSE METER (BEAKER) 280 mg/dL 70-110 : TESTED AT [facility] [address] [facility] (test tpvr=7783) [facility], [address]: Travel Journalist/[employer] Saw Operator [employer] AO=[id number] for Lita Kelley TACROLIMUS [id number] 10:34:00 Test Item Value Reference Range Comments TACROLIMUS BLOOD (BEAKER) (test xgkw=281) 2.6 ng/mL 10.0-20.0 POCT-GLUCOSE [id number] 06:51:00 Test Item Value Reference Range Comments POC-GLUCOSE METER (BEAKER) 286 mg/dL 70-110 : TESTED AT [facility] [address] [facility] (test hynt=0093) [facility], [address]: Travel Journalist/[employer] TM=[id number] for TEN YANG [id number] 04:13:00 Test Item Value Reference Range Comments PHOSPHORUS (BEAKER) (test ufyh=619) 2.1 mg/dL 2.3-4.7 [id number] 04:13:00 Test Item Value Reference Range Comments MAGNESIUM (BEAKER) (test qcrs=057) 1.9 mg/dL 1.6-2.6 BASIC METABOLIC [id number] 04:13:00 Test Item Value Reference Range Comments SODIUM (BEAKER) (test 139 meq/L 136-145 mavh=229) POTASSIUM (BEAKER) (test 4.2 meq/L 3.5-5.1 rgmu=133) CHLORIDE (BEAKER) (test 109 meq/L 98-107 lpgw=774) CO2 (BEAKER) (test 25 meq/L 22-29 zeun=747) BLOOD UREA NITROGEN 18 mg/dL 7-21 (BEAKER) (test qmui=646) CREATININE (BEAKER) (test 0.73 mg/dL 0.57-1.25 ufqj=386) GLUCOSE RANDOM (BEAKER) 318 mg/dL 70-105 (test cpmq=164) CALCIUM (BEAKER) (test 8.1 mg/dL 8.4-10.2 ffjl=359) EGFR (BEAKER) (test 109 mL/min/1.73 sq m ESTIMATED GFR IS NOT zrmh=2165) ACCURATE CREATININE CLEARANCE IN PREDICTING GLOMERULAR FILTRATION RATE. ESTIMATED GFR IS NOT APPLICABLE FOR DIALYSIS PATIENTS. HEPATIC FUNCTION [id number] 04:13:00 Test Item Value Reference Range Comments TOTAL PROTEIN (BEAKER) (test dnxu=778) 5.0 gm/dL 6.0-8.3 ALBUMIN (BEAKER) (test rqfh=9486) 3.2 g/dL 3.5-5.0 BILIRUBIN TOTAL (BEAKER) (test tywu=634) 0.7 mg/dL 0.2-1.2 BILIRUBIN DIRECT (BEAKER) (test eayq=345) 0.4 mg/dL 0.1-0.5 ALKALINE PHOSPHATASE (BEAKER) (test gvkv=320) 68 U/L 40-150 AST (SGOT) (BEAKER) (test uqtb=576) 265 U/L 5-34 ALT (SGPT) (BEAKER) (test fetz=958) 391 U/L 6-55 [id number] 03:32:00 Test Item Value Reference Range Comments PARTIAL THROMBOPLASTIN TIME (BEAKER) (test 31.2 seconds 22.5-36.0 avuf=276) PROTHROMBIN TIME/[id number] 03:31:00 Test Item Value Reference Range Comments PROTIME (BEAKER) (test nkzb=398) 16.4 seconds 11.9-14.2 INR (BEAKER) (test jlgd=062) 1.4 <=5.9 Effective 01/20/2019: PT Reference Range ChangeNew: 11.9-14.2 Previous: 11.7- 14.7RECOMMENDED COUMADIN/WARFARIN INR THERAPY RANGESSTANDARD DOSE: 2.0-3.0 Includes: PROPHYLAXIS for venous thrombosis, systemic embolization; TREATMENT for venous thrombosis and/or pulmonary embolus.HIGH RISK: Target INR is2.5-3.5 for patients wiht mechanical heart valves.CBC W/PLT COUNT & AUTO [id number] 03:23:00 Test Item Value Reference Range Comments WHITE BLOOD CELL COUNT (BEAKER) (test echi=794) 14.7 K/ L 3.5-10.5 RED BLOOD CELL COUNT (BEAKER) (test zrrd=052) 4.27 M/ L 4.63-6.08 HEMOGLOBIN (BEAKER) (test rsbm=072) 13.4 GM/DL 13.7-17.5 HEMATOCRIT (BEAKER) (test vwwy=716) 40.2 % 40.1-51.0 MEAN CORPUSCULAR VOLUME (BEAKER) (test dmpo=804) 94.1 fL 79.0-92.2 MEAN CORPUSCULAR HEMOGLOBIN (BEAKER) (test 31.4 pg 25.7-32.2 hacq=961) MEAN CORPUSCULAR HEMOGLOBIN CONC (BEAKER) (test 33.3 GM/DL 32.3-36.5 lzei=098) RED CELL DISTRIBUTION WIDTH (BEAKER) (test 13.4 % 11.6-14.4 rgfb=989) PLATELET COUNT (BEAKER) (test utjb=091) 92 K/CU MM 150-450 MEAN PLATELET VOLUME (BEAKER) (test paou=697) 11.1 fL 9.4-12.4 NUCLEATED RED BLOOD CELLS (BEAKER) (test 0 /100 WBC 0-0 hfxb=125) NEUTROPHILS RELATIVE PERCENT (BEAKER) (test 93 % skyh=343) LYMPHOCYTES RELATIVE PERCENT (BEAKER) (test 3 % xwzj=927) MONOCYTES RELATIVE PERCENT (BEAKER) (test 4 % atcs=611) EOSINOPHILS RELATIVE PERCENT (BEAKER) (test 0 % rjpj=596) BASOPHILS RELATIVE PERCENT (BEAKER) (test 0 % nmuv=910) NEUTROPHILS ABSOLUTE COUNT (BEAKER) (test 13.73 K/ L 1.78-5.38 wqsx=557) LYMPHOCYTES ABSOLUTE COUNT (BEAKER) (test 0.37 K/ L 1.32-3.57 tgrk=304) MONOCYTES ABSOLUTE COUNT (BEAKER) (test gaiq=752) 0.52 K/ L 0.30-0.82 EOSINOPHILS ABSOLUTE COUNT (BEAKER) (test 0.00 K/ L 0.04-0.54 kvht=403) BASOPHILS ABSOLUTE COUNT (BEAKER) (test eyjz=462) 0.03 K/ L 0.01-0.08 IMMATURE GRANULOCYTES-RELATIVE PERCENT (BEAKER) 1 % 0-1 (test ljls=8316) POCT-GLUCOSE [id number] 21:07:00 Test Item Value Reference Range Comments POC-GLUCOSE METER (BEAKER) 261 mg/dL 70-110 : TESTED AT [facility] [address] [facility] (test pcpy=9237) [facility], [address]: Travel Journalist/[employer] OY=[id number] for MIGUELITOSHAWNTEN Fernandez POCT-GLUCOSE [id number] 14:00:00 Test Item Value Reference Range Comments POC-GLUCOSE METER (BEAKER) 197 mg/dL 70-110 : TESTED AT [address] (test qrnx=4473) [facility], [address]: Travel Journalist/[employer] WS=[id number] for SHARAD LECHUGA TACROLIMUS [id number] 09:45:00 Test Item Value Reference Range Comments TACROLIMUS BLOOD (BEAKER) (test omtk=448) < ng/mL 10.0-20.0 HEPATITIS B PCR, [id number] 09:21:00 Test Item Value Reference Range Comments HBV RESULT COMPONENT (BEAKER) HBV DNA not detected HBV DNA not detected (test bhng=8507) This test uses a Real-Time Polymerase Chain Reaction (RT-PCR) methodology and was performed using AASHISH AmpliPrep/AASHISH TaqMan HBV Test, v2.0 ([employer]Reportable range for this assay is 20 - 170,000,000 IU per mL (1.30 - 8.23 Log IU/mL).POCT-GLUCOSE [id number] 08:51:00 Test Item Value Reference Range Comments POC-GLUCOSE METER (BEAKER) 135 mg/dL 70-110 : TESTED AT [address] (test wftj=0924) [facility], [address]: Travel Journalist/[employer] HL=[id number] for SHARAD LECHUGA POCT-GLUCOSE [id number] 06:16:00 Test Item Value Reference Range Comments POC-GLUCOSE METER (BEAKER) 139 mg/dL 70-110 : TESTED AT [address] (test hygq=0787) [facility], [address]: Travel Journalist/[employer] SA=[id number] for CHELSEA MURGUIA POCT-GLUCOSE [id number] 05:27:00 Test Item Value Reference Range Comments POC-GLUCOSE METER (BEAKER) 149 mg/dL 70-110 : TESTED AT [address] (test heel=8693) [facility], [address]: Travel Journalist/[employer] [id number]=[id number] for CHELSEA MURGUIA POCT-GLUCOSE [id number] 04:19:00 Test Item Value Reference Range Comments POC-GLUCOSE METER (BEAKER) 164 mg/dL 70-110 : TESTED AT [address] (test jsqm=4770) [facility], [address]: Travel Journalist/[employer] [id number] for CHELSEA MURGUIA [id number] 03:47:00 Test Item Value Reference Range Comments PHOSPHORUS (BEAKER) (test eghf=568) 3.1 mg/dL 2.3-4.7 [id number] 03:47:00 Test Item Value Reference Range Comments MAGNESIUM (BEAKER) (test epqd=761) 1.9 mg/dL 1.6-2.6 BASIC METABOLIC [id number] 03:47:00 Test Item Value Reference Range Comments SODIUM (BEAKER) (test 142 meq/L 136-145 jstv=806) POTASSIUM (BEAKER) (test 3.7 meq/L 3.5-5.1 rqql=711) CHLORIDE (BEAKER) (test 112 meq/L 98-107 wdef=760) CO2 (BEAKER) (test 25 meq/L 22-29 ofqj=111) BLOOD UREA NITROGEN 11 mg/dL 7-21 (BEAKER) (test ibuw=002) CREATININE (BEAKER) (test 0.70 mg/dL 0.57-1.25 vqph=680) GLUCOSE RANDOM (BEAKER) 182 mg/dL 70-105 (test mkdy=966) CALCIUM (BEAKER) (test 8.0 mg/dL 8.4-10.2 fznr=233) EGFR (BEAKER) (test 114 mL/min/1.73 sq m ESTIMATED GFR IS NOT hpzp=5806) ACCURATE CREATININE CLEARANCE IN PREDICTING GLOMERULAR FILTRATION RATE. ESTIMATED GFR IS NOT APPLICABLE FOR DIALYSIS PATIENTS. HEPATIC FUNCTION [id number] 03:47:00 Test Item Value Reference Range Comments TOTAL PROTEIN (BEAKER) (test zrzo=925) 5.1 gm/dL 6.0-8.3 ALBUMIN (BEAKER) (test qibg=7946) 3.6 g/dL 3.5-5.0 BILIRUBIN TOTAL (BEAKER) (test epoo=422) 0.9 mg/dL 0.2-1.2 BILIRUBIN DIRECT (BEAKER) (test vkyl=664) 0.5 mg/dL 0.1-0.5 ALKALINE PHOSPHATASE (BEAKER) (test whil=779) 56 U/L 40-150 AST (SGOT) (BEAKER) (test jucq=634) 219 U/L 5-34 ALT (SGPT) (BEAKER) (test aneo=243) 235 U/L 6-55 LACTIC ACID, [id number] 03:44:00 Test Item Value Reference Range Comments LACTATE BLOOD ARTERIAL (2) (BEAKER) (test 0.9 mmol/L 0.5-2.2 hdql=1381) [id number] 03:38:00 Test Item Value Reference Range Comments PARTIAL THROMBOPLASTIN TIME (BEAKER) (test 35.2 seconds 22.5-36.0 jacz=529) PROTHROMBIN TIME/[id number] 03:37:00 Test Item Value Reference Range Comments PROTIME (BEAKER) (test uujc=805) 15.9 seconds 11.9-14.2 INR (BEAKER) (test imkx=949) 1.3 <=5.9 Effective 01/20/2019: PT Reference Range ChangeNew: 11.9-14.2 Previous: 11.7- 14.7RECOMMENDED COUMADIN/WARFARIN INR THERAPY RANGESSTANDARD DOSE: 2.0-3.0 Includes: PROPHYLAXIS for venous thrombosis, systemic embolization; TREATMENT for venous thrombosis and/or pulmonary embolus.HIGH RISK: Target INR is2.5-3.5 for patients wiht mechanical heart valves.BLOOD GAS, [id number] 03:34:00 Test Item Value Reference Range Comments PH ARTERIAL (BEAKER) (test jpfm=168) 7.47 7.35-7.45 PCO2 ARTERIAL (BEAKER) (test zcjc=693) 36 mmHg 35-45 PO2 ARTERIAL (BEAKER) (test cpsi=521) 106 mmHg 80-90 O2 SATURATION ARTERIAL (BEAKER) (test gbln=717) 98.2 % 96.0-97.0 HCO3 ARTERIAL (BEAKER) (test wdzk=481) 26 mmol/L 21-29 BASE EXCESS ARTERIAL (BEAKER) (test omxe=073) 2.0 mmol/L -2.0-3.0 PATIENT TEMPERATURE (BEAKER) (test nqol=0255) 36.7 C FIO2 (BEAKER) (test fdpq=3955) 36.0 % While intubatedCBC W/PLT COUNT & AUTO [id number] 03:34:00 Test Item Value Reference Range Comments WHITE BLOOD CELL COUNT (BEAKER) (test xnyf=965) 13.3 K/ L 3.5-10.5 RED BLOOD CELL COUNT (BEAKER) (test pses=211) 4.55 M/ L 4.63-6.08 HEMOGLOBIN (BEAKER) (test ptwu=836) 14.1 GM/DL 13.7-17.5 HEMATOCRIT (BEAKER) (test zner=861) 42.6 % 40.1-51.0 MEAN CORPUSCULAR VOLUME (BEAKER) (test zjod=980) 93.6 fL 79.0-92.2 MEAN CORPUSCULAR HEMOGLOBIN (BEAKER) (test 31.0 pg 25.7-32.2 casx=027) MEAN CORPUSCULAR HEMOGLOBIN CONC (BEAKER) (test 33.1 GM/DL 32.3-36.5 gmfp=872) RED CELL DISTRIBUTION WIDTH (BEAKER) (test 13.2 % 11.6-14.4 ogrd=973) PLATELET COUNT (BEAKER) (test hiir=787) 104 K/CU MM 150-450 MEAN PLATELET VOLUME (BEAKER) (test gpwk=371) 11.1 fL 9.4-12.4 NUCLEATED RED BLOOD CELLS (BEAKER) (test 0 /100 WBC 0-0 hvnp=835) NEUTROPHILS RELATIVE PERCENT (BEAKER) (test 88 % jgim=170) LYMPHOCYTES RELATIVE PERCENT (BEAKER) (test 5 % xlet=714) MONOCYTES RELATIVE PERCENT (BEAKER) (test 7 % itwf=528) EOSINOPHILS RELATIVE PERCENT (BEAKER) (test 0 % orsp=626) BASOPHILS RELATIVE PERCENT (BEAKER) (test 0 % roum=792) NEUTROPHILS ABSOLUTE COUNT (BEAKER) (test 11.69 K/ L 1.78-5.38 ygad=807) LYMPHOCYTES ABSOLUTE COUNT (BEAKER) (test 0.61 K/ L 1.32-3.57 emba=142) MONOCYTES ABSOLUTE COUNT (BEAKER) (test 0.90 K/ L 0.30-0.82 dxyp=540) EOSINOPHILS ABSOLUTE COUNT (BEAKER) (test 0.00 K/ L 0.04-0.54 eyym=998) BASOPHILS ABSOLUTE COUNT (BEAKER) (test 0.02 K/ L 0.01-0.08 knms=913) IMMATURE GRANULOCYTES-RELATIVE PERCENT (BEAKER) 0 % 0-1 (test wdff=6411) POCT-GLUCOSE [id number] 03:30:00 Test Item Value Reference Range Comments POC-GLUCOSE METER (BEAKER) 147 mg/dL 70-110 : TESTED AT [address] (test jdzl=5914) [facility], [address]: Travel Journalist/[employer] ZX=[id number] for CHELSEA MURGUIA POCT-GLUCOSE [id number] 02:07:00 Test Item Value Reference Range Comments POC-GLUCOSE METER (BEAKER) 179 mg/dL 70-110 : TESTED AT [address] (test rkzd=5602) [facility], [address]: Travel Journalist/Band Saw Operator [employer] SQ=[id number] for CHELSEA MURGUIA POCT-GLUCOSE [id number] 01:13:00 Test Item Value Reference Range Comments POC-GLUCOSE METER (BEAKER) 195 mg/dL 70-110 : TESTED AT [address] (test lkrr=2787) [facility], [address]: Travel Journalist/Band Saw Operator [employer] XK=[id number] for CHELSEA MURGUIA [id number] 23:54:00 Test Item Value Reference Range Comments MAGNESIUM (BEAKER) (test 1.8 mg/dL 1.6-2.6 Specimen moderately hemolyzed pofm=062) [id number] 23:54:00 Test Item Value Reference Range Comments PHOSPHORUS (BEAKER) (test 2.5 mg/dL 2.3-4.7 Specimen moderately hemolyzed igcx=265) BASIC METABOLIC [id number] 23:54:00 Test Item Value Reference Range Comments SODIUM (BEAKER) (test 140 meq/L 136-145 byls=685) POTASSIUM (BEAKER) (test 4.3 meq/L 3.5-5.1 Specimen moderately cjve=724) hemolyzed CHLORIDE (BEAKER) (test 111 meq/L 98-107 bcdg=807) CO2 (BEAKER) (test 23 meq/L 22-29 dlpu=860) BLOOD UREA NITROGEN 11 mg/dL 7-21 (BEAKER) (test qsxg=987) CREATININE (BEAKER) (test 0.80 mg/dL 0.57-1.25 Specimen moderately wayp=199) hemolyzed GLUCOSE RANDOM (BEAKER) 246 mg/dL 70-105 (test qkgk=144) CALCIUM (BEAKER) (test 8.1 mg/dL 8.4-10.2 vebn=215) EGFR (BEAKER) (test 98 mL/min/1.73 sq m ESTIMATED GFR IS NOT lsgf=3396) ACCURATE CREATININE CLEARANCE IN PREDICTING GLOMERULAR FILTRATION RATE. ESTIMATED GFR IS NOT APPLICABLE FOR DIALYSIS PATIENTS. HEPATIC FUNCTION [id number] 23:54:00 Test Item Value Reference Range Comments TOTAL PROTEIN (BEAKER) (test 5.7 gm/dL 6.0-8.3 Specimen moderately hemolyzed iywn=482) ALBUMIN (BEAKER) (test 3.8 g/dL 3.5-5.0 Specimen moderately hemolyzed vbpy=1963) BILIRUBIN TOTAL (BEAKER) (test 0.9 mg/dL 0.2-1.2 Specimen moderately hemolyzed twii=979) BILIRUBIN DIRECT (BEAKER) 0.3 mg/dL 0.1-0.5 Specimen moderately hemolyzed (test btsb=699) ALKALINE PHOSPHATASE (BEAKER) 58 U/L 40-150 (test iscp=305) AST (SGOT) (BEAKER) (test 283 U/L 5-34 Specimen moderately hemolyzed piyb=818) ALT (SGPT) (BEAKER) (test 257 U/L 6-55 Specimen moderately hemolyzed grqq=928) CBC W/PLT COUNT & AUTO [id number] 23:25:00 Test Item Value Reference Range Comments WHITE BLOOD CELL COUNT (BEAKER) (test puxu=161) 13.1 K/ L 3.5-10.5 RED BLOOD CELL COUNT (BEAKER) (test sgdv=588) 4.59 M/ L 4.63-6.08 HEMOGLOBIN (BEAKER) (test ggry=451) 14.4 GM/DL 13.7-17.5 HEMATOCRIT (BEAKER) (test yiqq=271) 43.0 % 40.1-51.0 MEAN CORPUSCULAR VOLUME (BEAKER) (test vwmu=171) 93.7 fL 79.0-92.2 MEAN CORPUSCULAR HEMOGLOBIN (BEAKER) (test 31.4 pg 25.7-32.2 govh=982) MEAN CORPUSCULAR HEMOGLOBIN CONC (BEAKER) (test 33.5 GM/DL 32.3-36.5 gadf=315) RED CELL DISTRIBUTION WIDTH (BEAKER) (test 13.2 % 11.6-14.4 izkx=460) PLATELET COUNT (BEAKER) (test zeaq=985) 132 K/CU MM 150-450 MEAN PLATELET VOLUME (BEAKER) (test ueug=892) 11.3 fL 9.4-12.4 NUCLEATED RED BLOOD CELLS (BEAKER) (test 0 /100 WBC 0-0 mkqq=324) NEUTROPHILS RELATIVE PERCENT (BEAKER) (test 87 % oukq=027) LYMPHOCYTES RELATIVE PERCENT (BEAKER) (test 4 % vgww=771) MONOCYTES RELATIVE PERCENT (BEAKER) (test 8 % hxkw=976) EOSINOPHILS RELATIVE PERCENT (BEAKER) (test 0 % nqfj=081) BASOPHILS RELATIVE PERCENT (BEAKER) (test 0 % izpa=457) NEUTROPHILS ABSOLUTE COUNT (BEAKER) (test 11.41 K/ L 1.78-5.38 fpoa=963) LYMPHOCYTES ABSOLUTE COUNT (BEAKER) (test 0.58 K/ L 1.32-3.57 lsue=333) MONOCYTES ABSOLUTE COUNT (BEAKER) (test 0.99 K/ L 0.30-0.82 lgel=908) EOSINOPHILS ABSOLUTE COUNT (BEAKER) (test 0.00 K/ L 0.04-0.54 mvml=033) BASOPHILS ABSOLUTE COUNT (BEAKER) (test 0.02 K/ L 0.01-0.08 qivf=384) IMMATURE GRANULOCYTES-RELATIVE PERCENT (BEAKER) 0 % 0-1 (test cdvj=3618) POCT-GLUCOSE [id number] 23:15:00 Test Item Value Reference Range Comments POC-GLUCOSE METER (BEAKER) 231 mg/dL 70-110 : TESTED AT [address] (test gyzt=9107) [facility], [address]: Travel Journalist/Band Saw Operator [employer] DV=[id number] for CHELSEA MURGUIA POCT-GLUCOSE [id number] 22:03:00 Test Item Value Reference Range Comments POC-GLUCOSE METER (BEAKER) 255 mg/dL 70-110 : TESTED AT [address] (test agai=4369) [facility], [address]: Travel Journalist/Band Saw Operator [employer] ZR=[id number] for CHELSEA MURGUIA POCT-GLUCOSE [id number] 21:01:00 Test Item Value Reference Range Comments POC-GLUCOSE METER (BEAKER) 258 mg/dL 70-110 : TESTED AT [address] (test qqax=5953) [facility], [address]: Travel Journalist/Band Saw Operator [employer] DF=[id number] for CHELSEA UMRGUIA POCT-GLUCOSE [id number] 19:31:00 Test Item Value Reference Range Comments POC-GLUCOSE METER (BEAKER) 279 mg/dL 70-110 : TESTED AT [address] (test ogbr=0736) [facility], [address]: Travel Journalist/Band Saw Operator [employer] QG=[id number] for LUAN, RICKEYME POCT-GLUCOSE [id number] 18:40:00 Test Item Value Reference Range Comments POC-GLUCOSE METER (BEAKER) 295 mg/dL 70-110 : TESTED AT [address] (test luzs=4905) [facility], [address]: Travel Journalist/Band Saw Operator [employer] IJ=[id number] for LUAN, KOUAME RAD, CHEST, 1 VIEW, NON [id number] 17:41:00Referring: Dr. Baltazar Rivera for exam:->central line placementShould this be performed at the bedside?-&gt ;YesFINAL REPORT TECHNIQUE: Frontal chest radiograph dated 07/30/2019. CLINICAL HISTORY: Central line placement COMPARISON STUDY: chest radiograph performed earlier the same day Impression:Right-sided vascular line, endotracheal, and enteric tubes have been removed. Left-sided vascular line is seen with the tip projected over the superior vena cava. No change in prominent interstitial lung markings seen bilaterally.No focal consolidation. No pleural effusion or pneumothorax. Cardiomediastinal silhouette is normal in size. No fracture. Signed: Danny Wellsepjennie Verified Date/Time: 01/2019 17:41:57 Reading Location: [facility] Reading Room POCT-GLUCOSE [id number] 17:29:00 Test Item Value Reference Range Comments POC-GLUCOSE METER (BEAKER) 322 mg/dL 70-110 : TESTED AT [address] (test wcaq=8161) [facility], [address]: Travel Journalist/Band Saw Operator [employer] KT=[id number] for LUAN, KOUAME LACTIC ACID, [id number] 17:22:00 Test Item Value Reference Range Comments LACTATE BLOOD ARTERIAL (2) (BEAKER) (test 2.4 mmol/L 0.5-2.2 dtyk=5550) POCT-GLUCOSE [id number] 17:10:00 Test Item Value Reference Range Comments POC-GLUCOSE METER (BEAKER) 317 mg/dL 70-110 : TESTED AT [address] (test lrkk=8194) [facility], [address]: Travel Journalist/Band Saw Operator [employer] ZK=[id number] for ERIC ROLAND CBC (HEMOGRAM ONLY)2019-07-30 17:07:00 Test Item Value Reference Range Comments WHITE BLOOD CELL COUNT (BEAKER) (test oqpj=349) 11.7 K/ L 3.5-10.5 RED BLOOD CELL COUNT (BEAKER) (test vxij=727) 4.42 M/ L 4.63-6.08 HEMOGLOBIN (BEAKER) (test xtbg=231) 14.1 GM/DL 13.7-17.5 HEMATOCRIT (BEAKER) (test iyrz=975) 41.8 % 40.1-51.0 MEAN CORPUSCULAR VOLUME (BEAKER) (test zocb=725) 94.6 fL 79.0-92.2 MEAN CORPUSCULAR HEMOGLOBIN (BEAKER) (test 31.9 pg 25.7-32.2 wodn=817) MEAN CORPUSCULAR HEMOGLOBIN CONC (BEAKER) (test 33.7 GM/DL 32.3-36.5 zzfc=846) RED CELL DISTRIBUTION WIDTH (BEAKER) (test 13.3 % 11.6-14.4 xkud=324) PLATELET COUNT (BEAKER) (test wqlb=033) 92 K/CU MM 150-450 MEAN PLATELET VOLUME (BEAKER) (test dstb=408) 11.7 fL 9.4-12.4 NUCLEATED RED BLOOD CELLS (BEAKER) (test 0 /100 WBC 0-0 auar=123) POCT-GLUCOSE [id number] 16:39:00 Test Item Value Reference Range Comments POC-GLUCOSE METER (BEAKER) 279 mg/dL 70-110 : TESTED AT [address] (test zngg=3749) [facility], [address]: Travel Journalist/[employer] Operator [employer] IE=[id number] for ERIC ROLAND CYTOMEGALOVIRUS ANTIBODY, [id number] 15:07:00 Test Item Value Reference Range Comments CYTOMEGALOVIRUS, IGG (BEAKER) (test ilug=0110) Negative Negative, Equivocal CMV IgG Result Interpretation: </=0.8 Al Negative 0.9-1.0 Al Equivocal &gt ;/=1.1 Al PositiveCYTOMEGALOVIRUS ANTIBODY, [id number] 15:07:00 Test Item Value Reference Range Comments CYTOMEGALOVIRUS IGM ANTIBODY (BEAKER) (test Negative Negative, Equivocal nhux=8735) CMV IgM Result Interpretation: </=0.8 Al Negative 0.9-1.0 Al Equivocal >/=1.1 Al PositiveCBC W/PLT COUNT & AUTO [id number] 14:37:00 Test Item Value Reference Range Comments WHITE BLOOD CELL COUNT (BEAKER) (test twgo=758) 16.1 K/ L 3.5-10.5 RED BLOOD CELL COUNT (BEAKER) (test ggvv=381) 4.14 M/ L 4.63-6.08 HEMOGLOBIN (BEAKER) (test ulre=187) 12.9 GM/DL 13.7-17.5 HEMATOCRIT (BEAKER) (test awfm=648) 39.3 % 40.1-51.0 MEAN CORPUSCULAR VOLUME (BEAKER) (test vlcw=943) 94.9 fL 79.0-92.2 MEAN CORPUSCULAR HEMOGLOBIN (BEAKER) (test 31.2 pg 25.7-32.2 ldpf=382) MEAN CORPUSCULAR HEMOGLOBIN CONC (BEAKER) (test 32.8 GM/DL 32.3-36.5 asvr=303) RED CELL DISTRIBUTION WIDTH (BEAKER) (test 13.2 % 11.6-14.4 zagn=220) PLATELET COUNT (BEAKER) (test ikmy=142) 120 K/CU MM 150-450 MEAN PLATELET VOLUME (BEAKER) (test vmom=877) 11.0 fL 9.4-12.4 NUCLEATED RED BLOOD CELLS (BEAKER) (test 0 /100 WBC 0-0 rxdr=898) (CELLAVISION MANUAL DIFF)2019-07-30 14:37:00 Test Item Value Reference Range Comments NEUTROPHILS - REL (CELLAVISION)(BEAKER) (test 93 % sefe=9390) LYMPHOCYTES - REL (CELLAVISION)(BEAKER) (test 4 % totg=3297) MONOCYTES - REL (CELLAVISION)(BEAKER) (test 3 % rqir=2968) NEUTROPHILS - ABS (CELLAVISION)(BEAKER) (test 14.97 K/ul 1.78-5.38 msfg=3238) LYMPHOCYTES - ABS (CELLAVISION)(BEAKER) (test 0.64 K/ul 1.32-3.57 jxau=1903) MONOCYTES - ABS (CELLAVISION)(BEAKER) (test 0.48 K/uL 0.30-0.82 cdju=1536) TOTAL COUNTED (BEAKER) (test vmiq=9361) 100 WBC MORPHOLOGY (BEAKER) (test yxsq=005) Normal PLT MORPHOLOGY (BEAKER) (test upuk=051) Normal MACROCYTES (BEAKER) (test bdog=716) 1+ few ARTIFACT (CELLAVISION)(BEAKER) (test nadk=8572) Present PLATELET CONCENTRATION (CELLAVISION)(BEAKER) Decreased (test gcab=5138) Received comment: User comments: Slide comments:[id number] 13:41:00 Test Item Value Reference Range Comments FIBRINOGEN LEVEL (BEAKER) (test jaxp=526) 151 mg/dl 225-434 BASIC METABOLIC [id number] 13:39:00 Test Item Value Reference Range Comments SODIUM (BEAKER) (test 142 meq/L 136-145 fref=099) POTASSIUM (BEAKER) (test 3.6 meq/L 3.5-5.1 dmax=420) CHLORIDE (BEAKER) (test 112 meq/L 98-107 gwty=908) CO2 (BEAKER) (test 21 meq/L 22-29 wptz=722) BLOOD UREA NITROGEN 14 mg/dL 7-21 (BEAKER) (test avoj=871) CREATININE (BEAKER) (test 0.85 mg/dL 0.57-1.25 vdzv=579) GLUCOSE RANDOM (BEAKER) 293 mg/dL 70-105 (test yskq=145) CALCIUM (BEAKER) (test 9.0 mg/dL 8.4-10.2 wqfl=865) EGFR (BEAKER) (test 91 mL/min/1.73 sq m ESTIMATED GFR IS NOT xksu=0570) ACCURATE CREATININE CLEARANCE IN PREDICTING GLOMERULAR FILTRATION RATE. ESTIMATED GFR IS NOT APPLICABLE FOR DIALYSIS PATIENTS. [id number] 13:25:00 Test Item Value Reference Range Comments POTASSIUM (BEAKER) (test zbls=675) 3.6 meq/L 3.5-5.1 [id number] 13:25:00 Test Item Value Reference Range Comments MAGNESIUM (BEAKER) (test wdpd=267) 2.2 mg/dL 1.6-2.6 [id number] 13:25:00 Test Item Value Reference Range Comments PHOSPHORUS (BEAKER) (test vrdr=818) 3.5 mg/dL 2.3-4.7 HEPATIC FUNCTION [id number] 13:25:00 Test Item Value Reference Range Comments TOTAL PROTEIN (BEAKER) (test hjwn=084) 5.2 gm/dL 6.0-8.3 ALBUMIN (BEAKER) (test yiad=2740) 3.9 g/dL 3.5-5.0 BILIRUBIN TOTAL (BEAKER) (test yisf=690) 1.7 mg/dL 0.2-1.2 BILIRUBIN DIRECT (BEAKER) (test oife=230) 1.2 mg/dL 0.1-0.5 ALKALINE PHOSPHATASE (BEAKER) (test loaf=004) 65 U/L 40-150 AST (SGOT) (BEAKER) (test bped=497) 432 U/L 5-34 ALT (SGPT) (BEAKER) (test kzhx=258) 272 U/L 6-55 [id number] 13:25:00 Test Item Value Reference Range Comments GLUCOSE RANDOM (BEAKER) (test lscd=655) 293 mg/dL 70-105 CBC W/PLT COUNT & AUTO [id number] 13:16:00 Test Item Value Reference Range Comments WHITE BLOOD CELL COUNT (BEAKER) (test ookf=244) 12.2 K/ L 3.5-10.5 RED BLOOD CELL COUNT (BEAKER) (test xmxn=143) 3.81 M/ L 4.63-6.08 HEMOGLOBIN (BEAKER) (test fuqr=321) 12.1 GM/DL 13.7-17.5 HEMATOCRIT (BEAKER) (test bcue=778) 36.5 % 40.1-51.0 MEAN CORPUSCULAR VOLUME (BEAKER) (test gejp=651) 95.8 fL 79.0-92.2 MEAN CORPUSCULAR HEMOGLOBIN (BEAKER) (test 31.8 pg 25.7-32.2 lsam=112) MEAN CORPUSCULAR HEMOGLOBIN CONC (BEAKER) (test 33.2 GM/DL 32.3-36.5 eian=468) RED CELL DISTRIBUTION WIDTH (BEAKER) (test 13.2 % 11.6-14.4 bwni=967) PLATELET COUNT (BEAKER) (test chdp=100) 85 K/CU MM 150-450 MEAN PLATELET VOLUME (BEAKER) (test xbzc=844) 12.0 fL 9.4-12.4 NUCLEATED RED BLOOD CELLS (BEAKER) (test 0 /100 WBC 0-0 sjwb=772) NEUTROPHILS RELATIVE PERCENT (BEAKER) (test 87 % unri=301) LYMPHOCYTES RELATIVE PERCENT (BEAKER) (test 8 % zazx=602) MONOCYTES RELATIVE PERCENT (BEAKER) (test 5 % lxfi=213) EOSINOPHILS RELATIVE PERCENT (BEAKER) (test 0 % coge=355) BASOPHILS RELATIVE PERCENT (BEAKER) (test 0 % elmx=742) NEUTROPHILS ABSOLUTE COUNT (BEAKER) (test 10.60 K/ L 1.78-5.38 muin=191) LYMPHOCYTES ABSOLUTE COUNT (BEAKER) (test 0.91 K/ L 1.32-3.57 xexj=167) MONOCYTES ABSOLUTE COUNT (BEAKER) (test ijrm=170) 0.60 K/ L 0.30-0.82 EOSINOPHILS ABSOLUTE COUNT (BEAKER) (test 0.00 K/ L 0.04-0.54 bklo=941) BASOPHILS ABSOLUTE COUNT (BEAKER) (test jhmo=392) 0.01 K/ L 0.01-0.08 IMMATURE GRANULOCYTES-RELATIVE PERCENT (BEAKER) 1 % 0-1 (test zbpk=4002) RAD, CHEST, 1 VIEW, NON [id number] 13:16:00Referring: Dr. Baltazar Rivera for exam:->Status post central venous line placementFINAL REPORT RAD, CHEST, 1 VIEW, NON DEPT INDICATION: Status post central venous line placement COMPARISON: Prior day's exam FINDINGS: Portable frontal view of the chest. IMPRESSION: Support Lines: Endotracheal tube terminates 6 cm above the gina. Enteric tube side-port is beyond GE junction. Right IJ central venous catheter terminates over the superior vena cava. Lungs and pleura : Lungs are hypoinflated clear. No pneumothorax.Heart and mediastinum: Stable contours. Additional findings: None. Signed: JR Means Robert MDReport Verified Date/Time: 07/30/2019 13:16:54 Reading Location: [facility] Radiology Reading Room Electronically signed by: RUI MEANS on 01:16 [id number] 13:13:00 Test Item Value Reference Range Comments PARTIAL THROMBOPLASTIN TIME (BEAKER) (test 42.9 seconds 22.5-36.0 whwo=815) PROTHROMBIN TIME/[id number] 13:12:00 Test Item Value Reference Range Comments PROTIME (BEAKER) (test ogxz=876) 19.1 seconds 11.9-14.2 INR (BEAKER) (test qgot=511) 1.7 <=5.9 Effective 01/20/2019: PT Reference Range ChangeNew: 11.9-14.2 Previous: 11.7- 14.7RECOMMENDED COUMADIN/WARFARIN INR THERAPY RANGESSTANDARD DOSE: 2.0-3.0 Includes: PROPHYLAXIS for venous thrombosis, systemic embolization; TREATMENT for venous thrombosis and/or pulmonary embolus.HIGH RISK: Target INR is2.5-3.5 for patients wiht mechanical heart valves.BLOOD GAS, [id number] 12:59:00 Test Item Value Reference Range Comments PH ARTERIAL (BEAKER) (test wvlu=837) 7.39 7.35-7.45 PCO2 ARTERIAL (BEAKER) (test aqha=951) 38 mmHg 35-45 PO2 ARTERIAL (BEAKER) (test wokd=718) 137 mmHg 80-90 O2 SATURATION ARTERIAL (BEAKER) (test grxj=921) 98.7 % 96.0-97.0 HCO3 ARTERIAL (BEAKER) (test oeyx=943) 22 mmol/L 21-29 BASE EXCESS ARTERIAL (BEAKER) (test zelh=867) -2.4 mmol/L -2.0-3.0 PATIENT TEMPERATURE (BEAKER) (test nrso=6215) 36.9 C FIO2 (BEAKER) (test uijt=9347) 60.0 % CALCIUM, [id number] 12:57:00 Test Item Value Reference Range Comments CALCIUM IONIZED (BEAKER) (test xxgz=155) 1.24 mmol/L 1.12-1.27 PH, BLOOD (BEAKER) (test xnus=2795) 7.39 THROMBOELASTOGRAPH (TEG)2019-07-30 12:23:00 Test Item Value Reference Range Comments TEG ACTIVATED CLOTTING TIME (BEAKER) (test 6.2 minutes 4.0-7.0 mriu=4116) TEG FIBRINOGEN ACTIVITY (BEAKER) (test 47.7 degrees 61.0-73.0 idcp=3003) TEG PLT. AGGREGATION (BEAKER) (test rivs=4057) 48.7 MM 55.0-65.0 TGH ACTIVATED CLOTTING TIME (BEAKER) (test 4.8 minutes 4.0-7.0 avrw=0743) TGH FIBRINOGEN ACTIVITY (BEAKER) (test 58.9 degrees 61.0-73.0 xgth=5142) TGH PLT. AGGREGATION (BEAKER) (test pyiz=3628) 39.9 MM 55.0-65.0 [id number] 12:03:00 Test Item Value Reference Range Comments FIBRINOGEN LEVEL (BEAKER) (test iygr=373) 136 mg/dl 225-434 PT/[id number] 11:59:00 Test Item Value Reference Range Comments PROTIME (BEAKER) (test lkyn=075) 20.6 seconds 11.9-14.2 INR (BEAKER) (test fhjf=609) 1.9 <=5.9 PARTIAL THROMBOPLASTIN TIME (BEAKER) (test 56.4 seconds 22.5-36.0 fpnp=134) Effective 01/20/2019: PT Reference Range ChangeNew: 11.9-14.2 Previous: 11.7- 14.7RECOMMENDED COUMADIN/WARFARIN INR THERAPY RANGESSTANDARD DOSE: 2.0-3.0 Includes: PROPHYLAXIS for venous thrombosis, systemic embolization; TREATMENT for venous thrombosis and/or pulmonary embolus.HIGH RISK: Target INR is2.5-3.5 for patients wiht mechanical heart valves.PLATELET [id number] 11:42:00 Test Item Value Reference Range Comments PLATELET COUNT (BEAKER) (test aiit=866) 93 K/CU MM 150-450 CALCIUM, [id number] 11:37:00 Test Item Value Reference Range Comments CALCIUM IONIZED (BEAKER) (test unoq=476) 1.20 mmol/L 1.12-1.27 PH, BLOOD (BEAKER) (test kyqk=6195) 7.40 BLOOD GAS, [id number] 11:37:00 Test Item Value Reference Range Comments PH ARTERIAL (BEAKER) (test ottq=986) 7.40 7.35-7.45 PCO2 ARTERIAL (BEAKER) (test jorg=624) 38 mmHg 35-45 PO2 ARTERIAL (BEAKER) (test yuin=774) 183 mmHg 80-90 O2 SATURATION ARTERIAL (BEAKER) (test zyil=880) 99.3 % 96.0-97.0 HCO3 ARTERIAL (BEAKER) (test ytji=208) 23 mmol/L 21-29 BASE EXCESS ARTERIAL (BEAKER) (test reiq=957) -1.9 mmol/L -2.0-3.0 PATIENT TEMPERATURE (BEAKER) (test mirj=2978) 37.2 C FIO2 (BEAKER) (test tmuy=5789) 99.0 % GLUCOSE-STAT [id number] 11:37:00 Test Item Value Reference Range Comments GLUCOSE RANDOM (BEAKER) (test juxs=470) 263 mg/dL 70-110 HGB/HCT (H&H) - STAT [id number] 11:37:00 Test Item Value Reference Range Comments HEMOGLOBIN (BEAKER) (test aodp=620) 12.3 g/dL 13.0-16.8 HEMATOCRIT (BEAKER) (test qbyn=534) 36.0 % 40.0-50.0 SODIUM NA-STAT [id number] 11:35:00 Test Item Value Reference Range Comments SODIUM (BEAKER) (test ornl=956) 137 meq/L 135-148 POTASSIUM-STAT [id number] 11:35:00 Test Item Value Reference Range Comments POTASSIUM (BEAKER) (test huac=137) 3.6 meq/L 3.6-5.5 LACTIC ACID, [id number] 11:24:00 Test Item Value Reference Range Comments LACTATE BLOOD ARTERIAL (2) (BEAKER) (test 2.5 mmol/L 0.5-2.2 tyda=3738) CALCIUM, [id number] 10:45:00 Test Item Value Reference Range Comments CALCIUM IONIZED (BEAKER) (test uqcn=107) 1.30 mmol/L 1.12-1.27 PH, BLOOD (BEAKER) (test naoq=5951) 7.34 BLOOD GAS, [id number] 10:45:00 Test Item Value Reference Range Comments PH ARTERIAL (BEAKER) (test bhqw=487) 7.35 7.35-7.45 PCO2 ARTERIAL (BEAKER) (test lpat=974) 38 mmHg 35-45 PO2 ARTERIAL (BEAKER) (test tile=701) 158 mmHg 80-90 O2 SATURATION ARTERIAL (BEAKER) (test sfng=040) 99.0 % 96.0-97.0 HCO3 ARTERIAL (BEAKER) (test ttvc=131) 21 mmol/L 21-29 BASE EXCESS ARTERIAL (BEAKER) (test kmav=568) -4.8 mmol/L -2.0-3.0 PATIENT TEMPERATURE (BEAKER) (test klva=7449) 36.7 C FIO2 (BEAKER) (test nhmd=7342) 55.0 % POTASSIUM-STAT [id number] 10:45:00 Test Item Value Reference Range Comments POTASSIUM (BEAKER) (test mxqo=933) 3.2 meq/L 3.6-5.5 GLUCOSE-STAT [id number] 10:45:00 Test Item Value Reference Range Comments GLUCOSE RANDOM (BEAKER) (test nads=418) 255 mg/dL 70-110 HGB/HCT (H&H) - STAT [id number] 10:45:00 Test Item Value Reference Range Comments HEMOGLOBIN (BEAKER) (test hjrm=988) 12.5 g/dL 13.0-16.8 HEMATOCRIT (BEAKER) (test mabr=698) 37.0 % 40.0-50.0 SODIUM NA-STAT [id number] 10:44:00 Test Item Value Reference Range Comments SODIUM (BEAKER) (test pall=841) 139 meq/L 135-148 BLOOD GAS, [id number] 10:16:00 Test Item Value Reference Range Comments PH ARTERIAL (BEAKER) (test rcyb=702) 7.30 7.35-7.45 PCO2 ARTERIAL (BEAKER) (test pryn=020) 45 mmHg 35-45 PO2 ARTERIAL (BEAKER) (test pdpp=777) 355 mmHg 80-90 O2 SATURATION ARTERIAL (BEAKER) (test hpxh=877) 99.7 % 96.0-97.0 HCO3 ARTERIAL (BEAKER) (test crqt=859) 21 mmol/L 21-29 BASE EXCESS ARTERIAL (BEAKER) (test mqvm=350) -5.2 mmol/L -2.0-3.0 PATIENT TEMPERATURE (BEAKER) (test tfft=3624) 36.6 C FIO2 (BEAKER) (test frvm=7980) 92.0 % GLUCOSE-STAT [id number] 10:16:00 Test Item Value Reference Range Comments GLUCOSE RANDOM (BEAKER) (test mklp=995) 241 mg/dL 70-110 CALCIUM, [id number] 10:16:00 Test Item Value Reference Range Comments CALCIUM IONIZED (BEAKER) (test ywjg=276) 1.34 mmol/L 1.12-1.27 PH, BLOOD (BEAKER) (test xwpb=4634) 7.29 SODIUM NA-STAT [id number] 10:15:00 Test Item Value Reference Range Comments SODIUM (BEAKER) (test illn=673) 138 meq/L 135-148 POTASSIUM-STAT [id number] 10:15:00 Test Item Value Reference Range Comments POTASSIUM (BEAKER) (test yfty=635) 3.7 meq/L 3.6-5.5 HGB/HCT (H&H) - STAT [id number] 10:15:00 Test Item Value Reference Range Comments HEMOGLOBIN (BEAKER) (test lqau=145) 13.7 g/dL 13.0-16.8 HEMATOCRIT (BEAKER) (test fcnx=621) 40.0 % 40.0-50.0 CALCIUM, [id number] 10:02:00 Test Item Value Reference Range Comments CALCIUM IONIZED (BEAKER) (test ffnk=114) 1.75 mmol/L 1.12-1.27 PH, BLOOD (BEAKER) (test fwng=3307) 7.30 SODIUM NA-STAT [id number] 10:01:00 Test Item Value Reference Range Comments SODIUM (BEAKER) (test tzif=789) 142 meq/L 135-148 HGB/HCT (H&H) - STAT [id number] 10:01:00 Test Item Value Reference Range Comments HEMOGLOBIN (BEAKER) (test frcr=773) 13.7 g/dL 13.0-16.8 HEMATOCRIT (BEAKER) (test xjlh=923) 40.0 % 40.0-50.0 BLOOD GAS, [id number] 10:01:00 Test Item Value Reference Range Comments PH ARTERIAL (BEAKER) (test djou=671) 7.30 7.35-7.45 PCO2 ARTERIAL (BEAKER) (test wvkx=353) 46 mmHg 35-45 PO2 ARTERIAL (BEAKER) (test xivk=329) 260 mmHg 80-90 O2 SATURATION ARTERIAL (BEAKER) (test csml=075) 99.5 % 96.0-97.0 HCO3 ARTERIAL (BEAKER) (test qhqp=682) 22 mmol/L 21-29 BASE EXCESS ARTERIAL (BEAKER) (test faul=319) -4.4 mmol/L -2.0-3.0 PATIENT TEMPERATURE (BEAKER) (test myec=9596) 37.1 C FIO2 (BEAKER) (test uiqw=8847) 88.0 % POTASSIUM-STAT [id number] 10:01:00 Test Item Value Reference Range Comments POTASSIUM (BEAKER) (test dfef=183) 3.4 meq/L 3.6-5.5 GLUCOSE-STAT [id number] 10:01:00 Test Item Value Reference Range Comments GLUCOSE RANDOM (BEAKER) (test znca=877) 226 mg/dL 70-110 CALCIUM, [id number] 09:53:00 Test Item Value Reference Range Comments CALCIUM IONIZED (BEAKER) (test eobr=253) 1.89 mmol/L 1.12-1.27 PH, BLOOD (BEAKER) (test sjgb=1034) 7.33 SODIUM NA-STAT [id number] 09:51:00 Test Item Value Reference Range Comments SODIUM (BEAKER) (test qrgt=581) 137 meq/L 135-148 POTASSIUM-STAT [id number] 09:51:00 Test Item Value Reference Range Comments POTASSIUM (BEAKER) (test hayk=400) 3.5 meq/L 3.6-5.5 HGB/HCT (H&H) - STAT [id number] 09:51:00 Test Item Value Reference Range Comments HEMOGLOBIN (BEAKER) (test ptir=832) 14.5 g/dL 13.0-16.8 HEMATOCRIT (BEAKER) (test sbtm=965) 43.0 % 40.0-50.0 BLOOD GAS, [id number] 09:51:00 Test Item Value Reference Range Comments PH ARTERIAL (BEAKER) (test xivm=149) 7.33 7.35-7.45 PCO2 ARTERIAL (BEAKER) (test djsm=024) 39 mmHg 35-45 PO2 ARTERIAL (BEAKER) (test kbeu=266) 130 mmHg 80-90 O2 SATURATION ARTERIAL (BEAKER) (test luii=819) 98.4 % 96.0-97.0 HCO3 ARTERIAL (BEAKER) (test tyfr=370) 20 mmol/L 21-29 BASE EXCESS ARTERIAL (BEAKER) (test fyzo=051) -5.4 mmol/L -2.0-3.0 PATIENT TEMPERATURE (BEAKER) (test qegh=1265) 37.1 C FIO2 (BEAKER) (test vsbc=5074) 70.0 % GLUCOSE-STAT [id number] 09:51:00 Test Item Value Reference Range Comments GLUCOSE RANDOM (BEAKER) (test nqbh=682) 253 mg/dL 70-110 CALCIUM, [id number] 09:33:00 Test Item Value Reference Range Comments CALCIUM IONIZED (BEAKER) (test fmso=255) 1.04 mmol/L 1.12-1.27 PH, BLOOD (BEAKER) (test ydgq=9435) 7.35 POTASSIUM-STAT [id number] 09:32:00 Test Item Value Reference Range Comments POTASSIUM (BEAKER) (test hxvl=092) 4.0 meq/L 3.6-5.5 HGB/HCT (H&H) - STAT [id number] 09:32:00 Test Item Value Reference Range Comments HEMOGLOBIN (BEAKER) (test olra=262) 16.3 g/dL 13.0-16.8 HEMATOCRIT (BEAKER) (test oiff=341) 48.0 % 40.0-50.0 BLOOD GAS, [id number] 09:32:00 Test Item Value Reference Range Comments PH ARTERIAL (BEAKER) (test ffpm=258) 7.35 7.35-7.45 PCO2 ARTERIAL (BEAKER) (test iokq=484) 40 mmHg 35-45 PO2 ARTERIAL (BEAKER) (test kakh=717) 136 mmHg 80-90 O2 SATURATION ARTERIAL (BEAKER) (test ulcy=379) 98.6 % 96.0-97.0 HCO3 ARTERIAL (BEAKER) (test dpki=386) 22 mmol/L 21-29 BASE EXCESS ARTERIAL (BEAKER) (test lnwm=441) -3.5 mmol/L -2.0-3.0 PATIENT TEMPERATURE (BEAKER) (test qjuj=8719) 37.0 C FIO2 (BEAKER) (test zreh=0153) 55.0 % SODIUM NA-STAT [id number] 09:32:00 Test Item Value Reference Range Comments SODIUM (BEAKER) (test ckxy=998) 134 meq/L 135-148 GLUCOSE-STAT [id number] 09:32:00 Test Item Value Reference Range Comments GLUCOSE RANDOM (BEAKER) (test gpdq=209) 295 mg/dL 70-110 BLOOD GAS, [id number] 08:05:00 Test Item Value Reference Range Comments PH ARTERIAL (BEAKER) (test dwgc=593) 7.38 7.35-7.45 PCO2 ARTERIAL (BEAKER) (test cggy=679) 40 mmHg 35-45 PO2 ARTERIAL (BEAKER) (test qkfh=491) 262 mmHg 80-90 O2 SATURATION ARTERIAL (BEAKER) (test joyg=448) 99.6 % 96.0-97.0 HCO3 ARTERIAL (BEAKER) (test ifxp=863) 23 mmol/L 21-29 BASE EXCESS ARTERIAL (BEAKER) (test yzjx=715) -2.3 mmol/L -2.0-3.0 PATIENT TEMPERATURE (BEAKER) (test hawz=8819) 36.3 C FIO2 (BEAKER) (test unxb=6874) 100.0 % GLUCOSE-STAT [id number] 08:05:00 Test Item Value Reference Range Comments GLUCOSE RANDOM (BEAKER) (test knyv=124) 159 mg/dL 70-110 CALCIUM, [id number] 08:04:00 Test Item Value Reference Range Comments CALCIUM IONIZED (BEAKER) (test oqbu=022) 1.16 mmol/L 1.12-1.27 PH, BLOOD (BEAKER) (test hwcs=6264) 7.37 SODIUM NA-STAT [id number] 08:03:00 Test Item Value Reference Range Comments SODIUM (BEAKER) (test pddt=910) 136 meq/L 135-148 POTASSIUM-STAT [id number] 08:03:00 Test Item Value Reference Range Comments POTASSIUM (BEAKER) (test niei=339) 3.7 meq/L 3.6-5.5 HGB/HCT (H&H) - STAT [id number] 08:03:00 Test Item Value Reference Range Comments HEMOGLOBIN (BEAKER) (test mrqr=038) 16.1 g/dL 13.0-16.8 HEMATOCRIT (BEAKER) (test ypgm=637) 47.0 % 40.0-50.0 CBC W/PLT COUNT & AUTO [id number] 05:17:00 Test Item Value Reference Range Comments WHITE BLOOD CELL COUNT (BEAKER) (test gzpm=442) 5.6 K/ L 3.5-10.5 RED BLOOD CELL COUNT (BEAKER) (test aaci=511) 4.79 M/ L 4.63-6.08 HEMOGLOBIN (BEAKER) (test gvah=674) 14.9 GM/DL 13.7-17.5 HEMATOCRIT (BEAKER) (test zwtj=538) 45.6 % 40.1-51.0 MEAN CORPUSCULAR VOLUME (BEAKER) (test uryq=058) 95.2 fL 79.0-92.2 MEAN CORPUSCULAR HEMOGLOBIN (BEAKER) (test 31.1 pg 25.7-32.2 ttxz=002) MEAN CORPUSCULAR HEMOGLOBIN CONC (BEAKER) (test 32.7 GM/DL 32.3-36.5 wsdh=225) RED CELL DISTRIBUTION WIDTH (BEAKER) (test 13.0 % 11.6-14.4 ccky=462) PLATELET COUNT (BEAKER) (test hjtc=653) 83 K/CU MM 150-450 MEAN PLATELET VOLUME (BEAKER) (test slrf=355) 11.4 fL 9.4-12.4 NUCLEATED RED BLOOD CELLS (BEAKER) (test 0 /100 WBC 0-0 ygkj=118) NEUTROPHILS RELATIVE PERCENT (BEAKER) (test 44 % sqhn=571) LYMPHOCYTES RELATIVE PERCENT (BEAKER) (test 48 % wzcs=143) MONOCYTES RELATIVE PERCENT (BEAKER) (test 7 % lybb=563) EOSINOPHILS RELATIVE PERCENT (BEAKER) (test 0 % wcbg=127) BASOPHILS RELATIVE PERCENT (BEAKER) (test 1 % lxhp=560) NEUTROPHILS ABSOLUTE COUNT (BEAKER) (test 2.47 K/ L 1.78-5.38 wzih=082) LYMPHOCYTES ABSOLUTE COUNT (BEAKER) (test 2.72 K/ L 1.32-3.57 fdoj=825) MONOCYTES ABSOLUTE COUNT (BEAKER) (test fikd=633) 0.39 K/ L 0.30-0.82 EOSINOPHILS ABSOLUTE COUNT (BEAKER) (test 0.00 K/ L 0.04-0.54 jrjs=465) BASOPHILS ABSOLUTE COUNT (BEAKER) (test vxor=855) 0.03 K/ L 0.01-0.08 IMMATURE GRANULOCYTES-RELATIVE PERCENT (BEAKER) 0 % 0-1 (test fmxg=2699) BASIC METABOLIC [id number] 05:15:00 Test Item Value Reference Range Comments SODIUM (BEAKER) (test 140 meq/L 136-145 ydfa=583) POTASSIUM (BEAKER) (test 3.3 meq/L 3.5-5.1 Specimen slightly liyd=149) hemolyzed CHLORIDE (BEAKER) (test 115 meq/L 98-107 kcwq=795) CO2 (BEAKER) (test 21 meq/L 22-29 kplp=806) BLOOD UREA NITROGEN 14 mg/dL 7-21 (BEAKER) (test nvni=568) CREATININE (BEAKER) (test 0.62 mg/dL 0.57-1.25 Specimen slightly ttpm=508) hemolyzed GLUCOSE RANDOM (BEAKER) 95 mg/dL 70-105 (test lsdh=568) CALCIUM (BEAKER) (test 7.3 mg/dL 8.4-10.2 paur=187) EGFR (BEAKER) (test 131 mL/min/1.73 sq m ESTIMATED GFR IS NOT pabd=7443) ACCURATE CREATININE CLEARANCE IN PREDICTING GLOMERULAR FILTRATION RATE. ESTIMATED GFR IS NOT APPLICABLE FOR DIALYSIS PATIENTS. HEPATIC FUNCTION [id number] 05:15:00 Test Item Value Reference Range Comments TOTAL PROTEIN (BEAKER) (test 5.0 gm/dL 6.0-8.3 Specimen slightly hemolyzed jxez=900) ALBUMIN (BEAKER) (test 3.2 g/dL 3.5-5.0 Specimen slightly hemolyzed kaqb=9271) BILIRUBIN TOTAL (BEAKER) (test 0.8 mg/dL 0.2-1.2 Specimen slightly hemolyzed domy=859) BILIRUBIN DIRECT (BEAKER) (test 0.4 mg/dL 0.1-0.5 Specimen slightly hemolyzed bcmu=304) ALKALINE PHOSPHATASE (BEAKER) 45 U/L 40-150 (test jogs=094) AST (SGOT) (BEAKER) (test 22 U/L 5-34 Specimen slightly hemolyzed ssbg=375) ALT (SGPT) (BEAKER) (test 30 U/L 6-55 Specimen slightly hemolyzed abex=184) POCT-GLUCOSE [id number] 05:05:00 Test Item Value Reference Range Comments POC-GLUCOSE METER (BEAKER) 112 mg/dL 70-110 : TESTED AT [facility] [address] [facility] (test vqqo=7747) [facility], [address]: Travel Journalist/[employer] PL=[id number] for MARIEL HERNANDEZ [id number] 04:55:00 Test Item Value Reference Range Comments MAGNESIUM (BEAKER) (test 1.6 mg/dL 1.6-2.6 Specimen slightly hemolyzed rslc=516) [id number] 04:55:00 Test Item Value Reference Range Comments PHOSPHORUS (BEAKER) (test 3.0 mg/dL 2.3-4.7 Specimen slightly hemolyzed qens=371) PROTHROMBIN [id number] 04:34:00 Test Item Value Reference Range Comments PROTIME (BEAKER) (test ljek=688) 16.4 seconds 11.9-14.2 INR (BEAKER) (test hrjd=588) 1.4 <=5.9 Effective 01/20/2019: PT Reference Range ChangeNew: 11.9-14.2 Previous: 11.7- 14.7RECOMMENDED COUMADIN/WARFARIN INR THERAPY RANGESSTANDARD DOSE: 2.0-3.0 Includes: PROPHYLAXIS for venous thrombosis, systemic embolization; TREATMENT for venous thrombosis and/or pulmonary embolus.HIGH RISK: Target INR is2.5-3.5 for patients wiht mechanical heart valves.[id number] 04:34:00 Test Item Value Reference Range Comments PARTIAL THROMBOPLASTIN TIME (BEAKER) (test 36.7 seconds 22.5-36.0 lisd=484) RAD, CHEST, 1 VIEW, NON [id number] 02:43:00Referring: Dr. Baltazar Gutierrezhronic Liver Failure pending Transplantation.Reason for exam:->pre opShould this be performed at the bedside?->YesFINAL REPORT History: Preoperative evaluation, surgery unspecified. Comparison: 03/24/2019 Findings: A single view of the chest is submitted. The patient is rotated to the right.The cardiomediastinal contours are unremarkable. The lung volumes are low. Vague infrahilar opacities may reflect atelectasis but pneumonitis should be excluded clinically. There is no pneumothorax,large pleural effusion or acute bony abnormality. 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 [employer] GE=[id number] for MARIEL HERNANDEZ HEPATITIS B SURFACE [id number] 18:33:00 Test Item Value Reference Range Comments HEPATITIS B SURFACE ANTIGEN (2) (BEAKER) (test Nonreactive Nonreactive abla=7423) HEPATITIS B SURFACE [id number] 18:33:00 Test Item Value Reference Range Comments HEPATITIS B SURFACE ANTIBODY (BEAKER) (test 89.4 mIU/mL <8.0 vnci=996) HEPATITIS B CORE ANTIBODY, [id number] 18:33:00 Test Item Value Reference Range Comments HEPATITIS B CORE TOTAL ANTIBODY (BEAKER) (test Nonreactive Nonreactive fnio=654) [id number] 17:45:00 Test Item Value Reference Range Comments T4 TOTAL (BEAKER) (test sybz=182) 5.6 ug/dL 4.9-11.7 [id number] 17:45:00 Test Item Value Reference Range Comments THYROID STIMULATING HORMONE (BEAKER) (test 1.23 uIU/mL 0.35-4.94 zyhb=220) [id number] 17:26:00 Test Item Value Reference Range Comments PHOSPHORUS (BEAKER) (test jsjx=956) 3.0 mg/dL 2.3-4.7 [id number] 17:26:00 Test Item Value Reference Range Comments MAGNESIUM (BEAKER) (test rjah=764) 2.0 mg/dL 1.6-2.6 BASIC METABOLIC [id number] 17:26:00 Test Item Value Reference Range Comments SODIUM (BEAKER) (test 141 meq/L 136-145 jxob=121) POTASSIUM (BEAKER) (test 4.2 meq/L 3.5-5.1 wamm=533) CHLORIDE (BEAKER) (test 107 meq/L 98-107 bzbk=650) CO2 (BEAKER) (test 27 meq/L 22-29 jphl=375) BLOOD UREA NITROGEN 17 mg/dL 7-21 (BEAKER) (test oxmw=996) CREATININE (BEAKER) (test 0.80 mg/dL 0.57-1.25 jpdj=983) GLUCOSE RANDOM (BEAKER) 97 mg/dL 70-105 (test gevu=866) CALCIUM (BEAKER) (test 9.9 mg/dL 8.4-10.2 yrij=285) EGFR (BEAKER) (test 98 mL/min/1.73 sq m ESTIMATED GFR IS NOT fuvq=6477) ACCURATE CREATININE CLEARANCE IN PREDICTING GLOMERULAR FILTRATION RATE. ESTIMATED GFR IS NOT APPLICABLE FOR DIALYSIS PATIENTS. HEPATIC FUNCTION [id number] 17:26:00 Test Item Value Reference Range Comments TOTAL PROTEIN (BEAKER) (test gvdw=176) 7.3 gm/dL 6.0-8.3 ALBUMIN (BEAKER) (test elfl=1395) 4.7 g/dL 3.5-5.0 BILIRUBIN TOTAL (BEAKER) (test mcei=342) 1.1 mg/dL 0.2-1.2 BILIRUBIN DIRECT (BEAKER) (test byru=162) 0.5 mg/dL 0.1-0.5 ALKALINE PHOSPHATASE (BEAKER) (test ktlg=927) 73 U/L 40-150 AST (SGOT) (BEAKER) (test nswc=351) 31 U/L 5-34 ALT (SGPT) (BEAKER) (test svrh=648) 46 U/L 6-55 COMPREHENSIVE METABOLIC [id number] 17:26:00 Test Item Value Reference Range Comments TOTAL PROTEIN (BEAKER) 7.3 gm/dL 6.0-8.3 (test kgmk=879) ALBUMIN (BEAKER) (test 4.7 g/dL 3.5-5.0 ontd=7646) ALKALINE PHOSPHATASE 73 U/L 40-150 (BEAKER) (test yiqx=997) BILIRUBIN TOTAL (BEAKER) 1.1 mg/dL 0.2-1.2 (test wiww=397) SODIUM (BEAKER) (test 141 meq/L 136-145 liuh=990) POTASSIUM (BEAKER) (test 4.2 meq/L 3.5-5.1 iihd=222) CHLORIDE (BEAKER) (test 107 meq/L 98-107 wlrp=806) CO2 (BEAKER) (test 27 meq/L 22-29 kcrb=411) BLOOD UREA NITROGEN 17 mg/dL 7-21 (BEAKER) (test rxnh=153) CREATININE (BEAKER) (test 0.80 mg/dL 0.57-1.25 sfnv=877) GLUCOSE RANDOM (BEAKER) 97 mg/dL 70-105 (test felo=145) CALCIUM (BEAKER) (test 9.9 mg/dL 8.4-10.2 xmsq=012) AST (SGOT) (BEAKER) (test 31 U/L 5-34 mqga=747) ALT (SGPT) (BEAKER) (test 46 U/L 6-55 brbm=471) EGFR (BEAKER) (test 98 mL/min/1.73 sq m ESTIMATED GFR IS NOT iduc=5383) ACCURATE CREATININE CLEARANCE IN PREDICTING GLOMERULAR FILTRATION RATE. ESTIMATED GFR IS NOT APPLICABLE FOR DIALYSIS PATIENTS. GAMMA GLUTAMYL TRANSFERASE (GGT)[id number] 17:26:00 Test Item Value Reference Range Comments GAMMA GLUTAMYL TRANSFERASE (BEAKER) (test mbwt=560) 80 U/L 9-64 PROTHROMBIN TIME/[id number] 17:14:00 Test Item Value Reference Range Comments PROTIME (BEAKER) (test uutg=414) 14.4 seconds 11.9-14.2 INR (BEAKER) (test wzqm=200) 1.2 <=5.9 Effective 01/20/2019: PT Reference Range ChangeNew: 11.9-14.2 Previous: 11.7- 14.7RECOMMENDED COUMADIN/WARFARIN INR THERAPY RANGESSTANDARD DOSE: 2.0-3.0 Includes: PROPHYLAXIS for venous thrombosis, systemic embolization; TREATMENT for venous thrombosis and/or pulmonary embolus.HIGH RISK: Target INR is2.5-3.5 for patients wiht mechanical heart valves.[id number] 17:14:00 Test Item Value Reference Range Comments PARTIAL THROMBOPLASTIN TIME (BEAKER) (test 34.8 seconds 22.5-36.0 gxlk=112) CBC W/PLT COUNT & AUTO [id number] 17:06:00 Test Item Value Reference Range Comments WHITE BLOOD CELL COUNT (BEAKER) (test jlvy=496) 7.0 K/ L 3.5-10.5 RED BLOOD CELL COUNT (BEAKER) (test gvyx=367) 5.33 M/ L 4.63-6.08 HEMOGLOBIN (BEAKER) (test cbvk=944) 16.7 GM/DL 13.7-17.5 HEMATOCRIT (BEAKER) (test zavv=652) 50.2 % 40.1-51.0 MEAN CORPUSCULAR VOLUME (BEAKER) (test gsfm=512) 94.2 fL 79.0-92.2 MEAN CORPUSCULAR HEMOGLOBIN (BEAKER) (test 31.3 pg 25.7-32.2 buvh=151) MEAN CORPUSCULAR HEMOGLOBIN CONC (BEAKER) (test 33.3 GM/DL 32.3-36.5 peme=248) RED CELL DISTRIBUTION WIDTH (BEAKER) (test 13.1 % 11.6-14.4 okec=595) PLATELET COUNT (BEAKER) (test qxai=475) 125 K/CU MM 150-450 MEAN PLATELET VOLUME (BEAKER) (test cazn=735) 11.5 fL 9.4-12.4 NUCLEATED RED BLOOD CELLS (BEAKER) (test 0 /100 WBC 0-0 hirr=291) NEUTROPHILS RELATIVE PERCENT (BEAKER) (test 55 % xoyo=631) LYMPHOCYTES RELATIVE PERCENT (BEAKER) (test 38 % dpdv=470) MONOCYTES RELATIVE PERCENT (BEAKER) (test 6 % akqa=195) EOSINOPHILS RELATIVE PERCENT (BEAKER) (test 0 % trge=012) BASOPHILS RELATIVE PERCENT (BEAKER) (test 0 % kbdn=218) NEUTROPHILS ABSOLUTE COUNT (BEAKER) (test 3.86 K/ L 1.78-5.38 ndan=202) LYMPHOCYTES ABSOLUTE COUNT (BEAKER) (test 2.70 K/ L 1.32-3.57 cioj=177) MONOCYTES ABSOLUTE COUNT (BEAKER) (test 0.42 K/ L 0.30-0.82 kmfa=098) EOSINOPHILS ABSOLUTE COUNT (BEAKER) (test 0.00 K/ L 0.04-0.54 mqku=775) BASOPHILS ABSOLUTE COUNT (BEAKER) (test 0.03 K/ L 0.01-0.08 vkwa=024) IMMATURE GRANULOCYTES-RELATIVE PERCENT (BEAKER) 0 % 0-1 (test jigc=2122) FILTER IONIZED [id number] 17:02:00 Test Item Value Reference Range Comments FILTER IONIZED CALCIUM (BEAKER) (test oldk=3613) 1.16 mmol/L Reference Range: No NormalsMR, ABDOMEN, [id number] 08:57:00Referring: Dr. Baltazar Isbell Abdominal VesselsFINAL REPORT TECHNIQUE : MRI of the abdomen WITHOUT and WITH intravenous contrast. INDICATION: 64-year- old man with cirrhosis and hepatocellular carcinoma. COMPARISON: Abdomen MRI03/16. FINDINGS: LOWER THORAX: Please refer to chest CT from same date for further details. *LIVER: Cirrhotic morphology of the liver. *Unchanged posttreatment cavity in segment measures 0.6 x 1.2 cm with persistent thin peripheral arterial enhancement. New subcentimeter foci of arterial enhancement adjacent to the posttreatment cavity with suspected corresponding washout.* Persistent patchy foci of arterial enhancement in the posterior segment of the right hepatic lobe without corresponding washout or pseudocapsule likely represent perfusional changes. *No significant change in scattered subcentimeter arterially enhancing foci throughout both lobes of the liver without corresponding washout or pseudocapsule. *Unchanged tiny subcentimeter cyst in the left hepatic lobe. BILIARY: Prior cholecystectomy. No biliary ductal dilatation or filling defect.SPLEEN: The spleen is prominent and measures 16.1 cm in the craniocaudal dimension. Unchanged 0.8 cm T2 hyperintense lesion in the superior aspect of the spleen with suspected delayed enhancement is almost certainly a benign entity such as a hemangioma.PANCREAS: No focal masses or ductal dilatation. ADRENALS: Unchanged 3.8 x 3 cm left adrenal nodule, consistent with an adenoma. Unremarkable right adrenal gland.KIDNEYS/URETERS: No hydronephrosis or solid mass lesions. PERITONEUM/ RETROPERITONEUM: No free fluid.LYMPH NODES: Persistent prominentperiportal lymph nodes measure up to 1.2 cm.VESSELS: Portal system and hepatic veins are patent. Main portal vein measures 2.2 cm in diameter. Abdominal aorta is normal in caliber. GI TRACT: No distention or wall thickening. BONES AND SOFT TISSUES: Degenerative changes of the visualized spine. Unchanged 2 x 2 cm fat-containing lesion in the L2 vertebral body, likely an intraosseous hemangioma. Soft tissues are unremarkable. IMPRESSION:Cirrhosis with evidence of portal hypertension. New subcentimeter arterially enhancing foci adjacent to the posttreatment cavity in segment , suspicious for recurrent disease. Other persistent foci of arterial enhancement throughout the liver are indeterminate andprobable shunts/perfusional changes. Persistent prominent periportal lymph nodes, likely reactive. Unchanged left adrenal adenoma. Signed: Lovely Velasco MDReport Verified Date/Time: 06/17/2019 08:57:21 Reading Location: [address] Radiology Reading Room CT, CHEST, WITHOUT [id number] 14:04:00Referring : Dr. Baltazar Toro BeginsREPORT STATUS:A A stable 3.5 x 3.0 cm left adrenal adenoma is noted. Signed: Yudi Recio MDReport Verified Date/Time: 06/16/2019 14:04:12 Reading Location: [address] Radiology Reading RoomAddendum EndsFINAL REPORT CT scan of the chest. MEDICAL HISTORY: HCC, [place], cirrhosis. COMPARISON STUDY: March 16, 2019. TECHNIQUE: Contiguous helical slices were acquired through the thorax without the administration of contrast. This exam was performed according to our department dose optimization program which includes automated exposure control, adjustment of the mA and/or kV according to the patient's size and/or use of iterative reconstruction technique. FINDINGS: The mediastinum demonstrates no suspicious masses or adenopathy. Valvular calcification is seen. No pleural effusion is identified. The visualized portions of the upper abdomendemonstrate a nodular, cirrhotic appearing liver. Cholecystectomy clips are seen. The spleen is enlarged measuring 15.3 cm in AP diameter. The tracheobronchial tree is clear with no endobronchial lesions. The pulmonary parenchyma demonstrates a 1 mm nodule in the superior segment of the right lower lobe on image 31, not clearly seen on the previous study but this could be related to slice selection. A stable 1 mm nodule is seen in the left lower lobe on image 40. No other nodules are seen. Bone windows demonstrate degenerative changes. IMPRESSION:1. 1 mm nodule in the superior segment of the right lower lobe, not clearly seen on the prior studies and possibly related to slice selection. This can be reassessed on follow-up. Stable tiny left lower lobe nodule.2. Upper abdominal findings, better described on MRI. Signed: Yudi Recio MDReport Verified Date/Time: 06/16/2019 12:16:33 Reading Location: [address] Radiology Reading Room ALPHA FETOPROTEIN (AFP), TUMOR [id number] 12:31:00 Test Item Value Reference Range Comments ALPHA-FETOPROTEIN (BEAKER) (test lqij=6759) 3.8 ng/mL <10.0 HEPATIC FUNCTION [id number] 12:14:00 Test Item Value Reference Range Comments TOTAL PROTEIN (BEAKER) (test qnpk=724) 7.0 gm/dL 6.0-8.3 ALBUMIN (BEAKER) (test tfjg=1726) 4.5 g/dL 3.5-5.0 BILIRUBIN TOTAL (BEAKER) (test cayd=746) 1.1 mg/dL 0.2-1.2 BILIRUBIN DIRECT (BEAKER) (test qgqc=686) 0.6 mg/dL 0.1-0.5 ALKALINE PHOSPHATASE (BEAKER) (test bjbq=138) 56 U/L 40-150 AST (SGOT) (BEAKER) (test teca=891) 26 U/L 5-34 ALT (SGPT) (BEAKER) (test fbdx=016) 39 U/L 6-55 BASIC METABOLIC [id number] 12:14:00 Test Item Value Reference Range Comments SODIUM (BEAKER) (test 138 meq/L 136-145 kvij=119) POTASSIUM (BEAKER) (test 4.3 meq/L 3.5-5.1 fcag=542) CHLORIDE (BEAKER) (test 105 meq/L 98-107 ozql=033) CO2 (BEAKER) (test 26 meq/L 22-29 iqlr=470) BLOOD UREA NITROGEN 13 mg/dL 7-21 (BEAKER) (test tvze=838) CREATININE (BEAKER) (test 0.77 mg/dL 0.57-1.25 rccl=737) GLUCOSE RANDOM (BEAKER) 94 mg/dL 70-105 (test bmez=637) CALCIUM (BEAKER) (test 9.4 mg/dL 8.4-10.2 plio=796) EGFR (BEAKER) (test 102 mL/min/1.73 sq m ESTIMATED GFR IS NOT xodh=5433) ACCURATE CREATININE CLEARANCE IN PREDICTING GLOMERULAR FILTRATION RATE. ESTIMATED GFR IS NOT APPLICABLE FOR DIALYSIS PATIENTS. PROTHROMBIN TIME/[id number] 12:06:00 Test Item Value Reference Range Comments PROTIME (BEAKER) (test swrh=328) 14.3 seconds 11.9-14.2 INR (BEAKER) (test uwjo=918) 1.2 <=5.9 Effective 01/20/2019: PT Reference Range ChangeNew: 11.9-14.2 Previous: 11.7- 14.7RECOMMENDED COUMADIN/WARFARIN INR THERAPY RANGESSTANDARD DOSE: 2.0-3.0 Includes: PROPHYLAXIS for venous thrombosis, systemic embolization; TREATMENT for venous thrombosis and/or pulmonary embolus.HIGH RISK: Target INR is2.5-3.5 for patients wiht mechanical heart valves.CBC W/PLT COUNT & AUTO [id number] 12:02:00 Test Item Value Reference Range Comments WHITE BLOOD CELL COUNT (BEAKER) (test crob=808) 6.3 K/ L 3.5-10.5 RED BLOOD CELL COUNT (BEAKER) (test igws=024) 5.27 M/ L 4.63-6.08 HEMOGLOBIN (BEAKER) (test eheg=870) 16.3 GM/DL 13.7-17.5 HEMATOCRIT (BEAKER) (test wair=601) 49.3 % 40.1-51.0 MEAN CORPUSCULAR VOLUME (BEAKER) (test nfid=266) 93.5 fL 79.0-92.2 MEAN CORPUSCULAR HEMOGLOBIN (BEAKER) (test 30.9 pg 25.7-32.2 ddgc=647) MEAN CORPUSCULAR HEMOGLOBIN CONC (BEAKER) (test 33.1 GM/DL 32.3-36.5 oitx=937) RED CELL DISTRIBUTION WIDTH (BEAKER) (test 13.1 % 11.6-14.4 igqo=955) PLATELET COUNT (BEAKER) (test mwew=542) 125 K/CU MM 150-450 MEAN PLATELET VOLUME (BEAKER) (test nwiu=035) 10.9 fL 9.4-12.4 NUCLEATED RED BLOOD CELLS (BEAKER) (test 0 /100 WBC 0-0 pmzr=739) NEUTROPHILS RELATIVE PERCENT (BEAKER) (test 51 % klhw=825) LYMPHOCYTES RELATIVE PERCENT (BEAKER) (test 43 % rngp=786) MONOCYTES RELATIVE PERCENT (BEAKER) (test 6 % zazh=763) EOSINOPHILS RELATIVE PERCENT (BEAKER) (test 0 % zrwz=174) BASOPHILS RELATIVE PERCENT (BEAKER) (test 1 % drlp=404) NEUTROPHILS ABSOLUTE COUNT (BEAKER) (test 3.16 K/ L 1.78-5.38 vnrw=801) LYMPHOCYTES ABSOLUTE COUNT (BEAKER) (test 2.68 K/ L 1.32-3.57 yqvo=134) MONOCYTES ABSOLUTE COUNT (BEAKER) (test 0.36 K/ L 0.30-0.82 jjpp=933) EOSINOPHILS ABSOLUTE COUNT (BEAKER) (test 0.00 K/ L 0.04-0.54 wjxy=390) BASOPHILS ABSOLUTE COUNT (BEAKER) (test 0.04 K/ L 0.01-0.08 rvkl=844) IMMATURE GRANULOCYTES-RELATIVE PERCENT (BEAKER) 0 % 0-1 (test umpe=4338) [id number] 10:41:00 Test Item Value Reference Range Comments POC-CREATININE (BEAKER) 0.6 mg/dL 0.6-1.3 TESTED AT [facility] 67[address] (test opcx=8109) [facility] [address] POC-EGFR (BEAKER) (test 137 mL/min/1.73M2 pwpo=5268) POCT-GLUCOSE [id number] 08:36:00 Test Item Value Reference Range Comments POC-GLUCOSE METER (BEAKER) 140 mg/dL 70-110 TESTED AT [facility] [address] MISSY (test snkv=2654) [facility] [address] BASIC METABOLIC [id number] 06:11:00 Test Item Value Reference Range Comments SODIUM (BEAKER) (test 138 meq/L 136-145 aeqe=783) POTASSIUM (BEAKER) (test 3.9 meq/L 3.5-5.1 zjhx=550) CHLORIDE (BEAKER) (test 107 meq/L 98-107 tcnw=562) CO2 (BEAKER) (test 24 meq/L 22-29 pkgq=422) BLOOD UREA NITROGEN 21 mg/dL 7-21 (BEAKER) (test smtv=431) CREATININE (BEAKER) (test 0.81 mg/dL 0.57-1.25 dwtr=638) GLUCOSE RANDOM (BEAKER) 122 mg/dL 70-105 (test uhrd=839) CALCIUM (BEAKER) (test 9.1 mg/dL 8.4-10.2 sgpl=033) EGFR (BEAKER) (test 97 mL/min/1.73 sq m ESTIMATED GFR IS NOT xutp=0860) ACCURATE CREATININE CLEARANCE IN PREDICTING GLOMERULAR FILTRATION RATE. ESTIMATED GFR IS NOT APPLICABLE FOR DIALYSIS PATIENTS. CBC W/PLT COUNT & AUTO [id number] 05:16:00 Test Item Value Reference Range Comments WHITE BLOOD CELL COUNT (BEAKER) (test nrgr=762) 5.6 K/ L 3.5-10.5 RED BLOOD CELL COUNT (BEAKER) (test igit=559) 5.19 M/ L 4.63-6.08 HEMOGLOBIN (BEAKER) (test rnxb=830) 16.2 GM/DL 13.7-17.5 HEMATOCRIT (BEAKER) (test skmx=767) 48.8 % 40.1-51.0 MEAN CORPUSCULAR VOLUME (BEAKER) (test sofs=130) 94.0 fL 79.0-92.2 MEAN CORPUSCULAR HEMOGLOBIN (BEAKER) (test 31.2 pg 25.7-32.2 upvr=079) MEAN CORPUSCULAR HEMOGLOBIN CONC (BEAKER) (test 33.2 GM/DL 32.3-36.5 fxef=071) RED CELL DISTRIBUTION WIDTH (BEAKER) (test 13.2 % 11.6-14.4 npvt=386) PLATELET COUNT (BEAKER) (test rsbv=616) 87 K/CU MM 150-450 MEAN PLATELET VOLUME (BEAKER) (test qnvm=817) 11.5 fL 9.4-12.4 NUCLEATED RED BLOOD CELLS (BEAKER) (test 0 /100 WBC 0-0 auxv=091) NEUTROPHILS RELATIVE PERCENT (BEAKER) (test 55 % qkdl=981) LYMPHOCYTES RELATIVE PERCENT (BEAKER) (test 34 % hlhi=667) MONOCYTES RELATIVE PERCENT (BEAKER) (test 11 % cunr=567) EOSINOPHILS RELATIVE PERCENT (BEAKER) (test 0 % cqqa=218) BASOPHILS RELATIVE PERCENT (BEAKER) (test 1 % mzij=008) NEUTROPHILS ABSOLUTE COUNT (BEAKER) (test 3.05 K/ L 1.78-5.38 rcjk=156) LYMPHOCYTES ABSOLUTE COUNT (BEAKER) (test 1.91 K/ L 1.32-3.57 ibzo=449) MONOCYTES ABSOLUTE COUNT (BEAKER) (test tuek=864) 0.60 K/ L 0.30-0.82 EOSINOPHILS ABSOLUTE COUNT (BEAKER) (test 0.00 K/ L 0.04-0.54 ldal=236) BASOPHILS ABSOLUTE COUNT (BEAKER) (test wuko=459) 0.03 K/ L 0.01-0.08 IMMATURE GRANULOCYTES-RELATIVE PERCENT (BEAKER) 0 % 0-1 (test waax=0034) POCT-GLUCOSE [id number] 02:15:00 Test Item Value Reference Range Comments POC-GLUCOSE METER (BEAKER) 109 mg/dL 70-110 TESTED AT [address] (test vmdt=2168) [facility] [address] RAD, CHEST, 1 VIEW, NON [id number] 22:44:00Referring: Dr. Baltazar HowardalChronic Liver Failure pending Transplantation.Reason for exam:->pre livertransplant work upShould this be performed at the bedside?->YesFINAL REPORT INDICATION: pre liver transplant work up TECHNIQUE: Chest radiograph , single view, portable technique. FINDINGS / IMPRESSION: Comparison to July 08, 2018.Lung volumes normal and lungs clear.Cardiac mediastinal contours unremarkable for portable technique.No pneumothorax or pleural effusion demonstrated.Osseous structures are unremarkable. Signed: Charlie Kuo MDReport Verified Date/Time: 03/24/2019 22:44:35 Reading Location: [facility] C0[facility] Consult Reading Room [id number] 18:23:00 Test Item Value Reference Range Comments THYROID STIMULATING HORMONE (BEAKER) (test 1.75 uIU/mL 0.35-4.94 tzwg=607) [id number] 18:05:00 Test Item Value Reference Range Comments MAGNESIUM (BEAKER) (test 2.0 mg/dL 1.6-2.6 Specimen markedly hemolyzed tdbu=159) [id number] 18:05:00 Test Item Value Reference Range Comments PHOSPHORUS (BEAKER) (test 4.2 mg/dL 2.3-4.7 Specimen markedly hemolyzed rctx=988) BASIC METABOLIC [id number] 18:05:00 Test Item Value Reference Range Comments SODIUM (BEAKER) (test 134 meq/L 136-145 myac=126) POTASSIUM (BEAKER) (test 5.5 meq/L 3.5-5.1 Specimen markedly iuqi=569) hemolyzed CHLORIDE (BEAKER) (test 105 meq/L 98-107 zure=524) CO2 (BEAKER) (test 22 meq/L 22-29 pvvp=439) BLOOD UREA NITROGEN 28 mg/dL 7-21 (BEAKER) (test vejl=899) CREATININE (BEAKER) (test 0.99 mg/dL 0.57-1.25 Specimen markedly xynd=824) hemolyzed GLUCOSE RANDOM (BEAKER) 178 mg/dL 70-105 (test alyi=814) CALCIUM (BEAKER) (test 9.4 mg/dL 8.4-10.2 pgyf=165) EGFR (BEAKER) (test 77 mL/min/1.73 sq m ESTIMATED GFR IS NOT loyk=6675) ACCURATE CREATININE CLEARANCE IN PREDICTING GLOMERULAR FILTRATION RATE. ESTIMATED GFR IS NOT APPLICABLE FOR DIALYSIS PATIENTS. COMPREHENSIVE METABOLIC [id number] 18:05:00 Test Item Value Reference Range Comments TOTAL PROTEIN (BEAKER) 7.8 gm/dL 6.0-8.3 Specimen markedly (test jaev=115) hemolyzed ALBUMIN (BEAKER) (test 4.3 g/dL 3.5-5.0 Specimen markedly vtls=0056) hemolyzed ALKALINE PHOSPHATASE 56 U/L 40-150 (BEAKER) (test xqkv=918) BILIRUBIN TOTAL (BEAKER) 1.6 mg/dL 0.2-1.2 Specimen markedly (test anuz=903) hemolyzed SODIUM (BEAKER) (test 134 meq/L 136-145 qnlz=577) POTASSIUM (BEAKER) (test 5.5 meq/L 3.5-5.1 Specimen markedly wsig=755) hemolyzed CHLORIDE (BEAKER) (test 105 meq/L 98-107 mabz=327) CO2 (BEAKER) (test 22 meq/L 22-29 jzcq=787) BLOOD UREA NITROGEN 28 mg/dL 7-21 (BEAKER) (test kton=490) CREATININE (BEAKER) (test 0.99 mg/dL 0.57-1.25 Specimen markedly fcaz=502) hemolyzed GLUCOSE RANDOM (BEAKER) 178 mg/dL 70-105 (test yqhz=533) CALCIUM (BEAKER) (test 9.4 mg/dL 8.4-10.2 bcai=127) AST (SGOT) (BEAKER) (test 75 U/L 5-34 Specimen markedly acty=364) hemolyzed ALT (SGPT) (BEAKER) (test 40 U/L 6-55 Specimen markedly rwab=482) hemolyzed EGFR (BEAKER) (test 77 mL/min/1.73 sq m ESTIMATED GFR IS NOT qpnx=7676) ACCURATE CREATININE CLEARANCE IN PREDICTING GLOMERULAR FILTRATION RATE. ESTIMATED GFR IS NOT APPLICABLE FOR DIALYSIS PATIENTS. HEPATIC FUNCTION [id number] 18:05:00 Test Item Value Reference Range Comments TOTAL PROTEIN (BEAKER) (test 7.8 gm/dL 6.0-8.3 Specimen markedly hemolyzed mxuk=213) ALBUMIN (BEAKER) (test 4.3 g/dL 3.5-5.0 Specimen markedly hemolyzed ioph=6464) BILIRUBIN TOTAL (BEAKER) (test 1.6 mg/dL 0.2-1.2 Specimen markedly hemolyzed njqu=178) BILIRUBIN DIRECT (BEAKER) (test 0.4 mg/dL 0.1-0.5 Specimen markedly hemolyzed spas=280) ALKALINE PHOSPHATASE (BEAKER) 56 U/L 40-150 (test cuxi=688) AST (SGOT) (BEAKER) (test 75 U/L 5-34 Specimen markedly hemolyzed yray=742) ALT (SGPT) (BEAKER) (test 40 U/L 6-55 Specimen markedly hemolyzed bnpv=618) GAMMA GLUTAMYL TRANSFERASE (GGT)[id number] 18:05:00 Test Item Value Reference Range Comments GAMMA GLUTAMYL TRANSFERASE 50 U/L 9-64 Specimen markedly hemolyzed (BEAKER) (test bsfc=424) [id number] 17:47:00 Test Item Value Reference Range Comments PARTIAL THROMBOPLASTIN TIME (BEAKER) (test 34.8 seconds 22.5-36.0 ehmf=263) PROTHROMBIN [id number] 17:46:00 Test Item Value Reference Range Comments PROTIME (BEAKER) (test rzsa=263) 14.7 seconds 11.9-14.2 INR (BEAKER) (test jzqs=004) 1.2 <=5.9 Effective 01/20/2019: PT Reference Range ChangeNew: 11.9-14.2 Previous: 11.7- 14.7RECOMMENDED COUMADIN/WARFARIN INR THERAPY RANGESSTANDARD DOSE: 2.0-3.0 Includes: PROPHYLAXIS for venous thrombosis, systemic embolization; TREATMENT for venous thrombosis and/or pulmonary embolus.HIGH RISK: Target INR is2.5-3.5 for patients wiht mechanical heart valves.FILTER IONIZED [id number] 17:45 :00 Test Item Value Reference Range Comments FILTER IONIZED CALCIUM (BEAKER) (test fhtk=9561) 1.15 mmol/L Reference Range: No NormalsCBC W/PLT COUNT & AUTO [id number] 17: 41:00 Test Item Value Reference Range Comments WHITE BLOOD CELL COUNT (BEAKER) (test tdej=281) 7.0 K/ L 3.5-10.5 RED BLOOD CELL COUNT (BEAKER) (test dqpw=777) 5.17 M/ L 4.63-6.08 HEMOGLOBIN (BEAKER) (test gxli=077) 16.2 GM/DL 13.7-17.5 HEMATOCRIT (BEAKER) (test fjxo=089) 48.5 % 40.1-51.0 MEAN CORPUSCULAR VOLUME (BEAKER) (test wtky=007) 93.8 fL 79.0-92.2 MEAN CORPUSCULAR HEMOGLOBIN (BEAKER) (test 31.3 pg 25.7-32.2 bnbt=212) MEAN CORPUSCULAR HEMOGLOBIN CONC (BEAKER) (test 33.4 GM/DL 32.3-36.5 spmv=734) RED CELL DISTRIBUTION WIDTH (BEAKER) (test 13.4 % 11.6-14.4 yvmn=403) PLATELET COUNT (BEAKER) (test qhzc=850) 103 K/CU MM 150-450 MEAN PLATELET VOLUME (BEAKER) (test mzwm=871) 11.8 fL 9.4-12.4 NUCLEATED RED BLOOD CELLS (BEAKER) (test 0 /100 WBC 0-0 izrh=650) NEUTROPHILS RELATIVE PERCENT (BEAKER) (test 63 % uhyi=953) LYMPHOCYTES RELATIVE PERCENT (BEAKER) (test 28 % ozui=316) MONOCYTES RELATIVE PERCENT (BEAKER) (test 8 % yckj=135) EOSINOPHILS RELATIVE PERCENT (BEAKER) (test 0 % zbcd=455) BASOPHILS RELATIVE PERCENT (BEAKER) (test 0 % ghhe=390) NEUTROPHILS ABSOLUTE COUNT (BEAKER) (test 4.42 K/ L 1.78-5.38 quqy=451) LYMPHOCYTES ABSOLUTE COUNT (BEAKER) (test 1.98 K/ L 1.32-3.57 ifur=715) MONOCYTES ABSOLUTE COUNT (BEAKER) (test 0.55 K/ L 0.30-0.82 dsnq=384) EOSINOPHILS ABSOLUTE COUNT (BEAKER) (test 0.00 K/ L 0.04-0.54 noii=417) BASOPHILS ABSOLUTE COUNT (BEAKER) (test 0.03 K/ L 0.01-0.08 geqp=737) IMMATURE GRANULOCYTES-RELATIVE PERCENT (BEAKER) 0 % 0-1 (test tbyz=8173) BONE AND/OR JOINT IMAGING, WHOLE [id number] 15:39:00Referring: Dr. Baltazar Olson REPORT PROCEDURE: BONE SCAN, WHOLE BODY CPT CODE: 48590 INDICATION: HCC. OROURKE. Cirrhosis. PROTOCOL: 20.5 mCi of Tc-99m MDP was injected intravenously.Whole body and selected spot images were obtained approximately 3 hours later. FINDINGS: There is moderately increased tracer activity in the shoulders, knees, and ankles. There is mildly increased tracer uptake in the spine. Moderately increased tracer uptake in the nasal bones, maxilla, and the mandible. IMPRESSION: 1. Degenerative changes noted in the peripheral joints and spine.2. No pattern of bony metastasis.3. Possible periodontal disease. Images for comparison/correlation were CT chest and MRI abdomen from 03/16/2019. Whole body bone scan from 07/08/2018.. Signed: Demetrius Garcia MDReport Verified Date/Time: 03/16/2019 15:39:51 Reading Location : [address] Med Reading Room ALPHA FETOPROTEIN (AFP), TUMOR [id number] 14:06:00 Test Item Value Reference Range Comments ALPHA-FETOPROTEIN (BEAKER) (test folh=1879) 4.0 ng/mL <10.0 MR, ABDOMEN, [id number] 14:04:00Referring: Dr. Baltazar Isbell Abdominal VesselsAddendum BeginsREPORT STATUS:A BONES AND SOFT TISSUES section should include:Unchanged 2 x 2 cm fat-containing lesion in the L2 vertebral body, likely an intraosseous hemangioma. Signed: Lovely Velasco MDReport Verified Date/Time: 03/16/2019 14:04:28 Reading Location: [address] Radiology Reading RoomAddendum EndsFINAL REPORT TECHNIQUE: MRI of the abdomen WITHOUT and WITH intravenous contrast. INDICATION : 64-year-old man with cirrhosis and hepatocellular carcinoma. COMPARISON: Abdomen MRI 11/27/2018. FINDINGS: LOWER THORAX: Please refer to chest CTreport from same date for further details. LIVER: Cirrhotic morphology of the liver. No suspicious liver lesion. *Unchanged posttreatment cavity in segment measures 0.6 x 1.2 cm with persistent thinperipheral arterial enhancement and no corresponding washout or pseudocapsule. *Persistent patchy foci of arterial enhancement in the posterior segment of the right hepatic lobe without corresponding washout or pseudocapsule likely represent perfusional changes. * No significant change in scattered subcentimeter arterially enhancing foci throughout both lobes of the liver without corresponding washoutor pseudocapsule. *Unchanged tiny subcentimeter cyst in the left hepatic lobe. BILIARY: Prior cholecystectomy. No biliary ductal dilatation or filling defect.SPLEEN: The spleen is prominent and measures 15.8 cm in the craniocaudal dimension. Unchanged 0.8 cm T2 hyperintense lesion in the superior aspect of the spleen with suspected delayed enhancement is almost certainly a benign entity such as a hemangioma.PANCREAS: No focal masses or ductal dilatation. ADRENALS: Unchanged 3.8 x 3 cm left adrenal nodule, consistent with an adenoma. Unremarkable right adrenal gland.KIDNEYS/URETERS: No hydronephrosis or solid mass lesions. PERITONEUM/RETROPERITONEUM: No free fluid.LYMPH NODES: Unchanged prominent periportal lymph nodes measure up to 1.4 cm.VESSELS: Portal system and hepatic veins are patent. Main portal vein measures 2.2 cm in diameter. Abdominal aorta is normal in caliber. GI TRACT: No distention or wall thickening. BONES AND SOFT TISSUES: Degenerative changes of the visualized spine. Soft tissues are unremarkable. IMPRESSION:Cirrhosis with evidence of portal hypertension. No residual diseaseor new suspicious liver lesion. Persistent posttreatment changes in the posterior segment of the right lobe. No significant change in subcentimeter arterially enhancing foci throughout the liver, whichare probably shunts but remain indeterminate. Unchanged prominent periportal lymph nodes, likely reactive. Unchanged left adrenal adenoma. Signed : Lovely Velasco MDReport Verified Date/Time: 03/16/2019 13:37:11 Reading Location: [address] Radiology Reading Room CT, CHEST, WITHOUT [id number] 14:02:00Referring: Dr. Baltazar Olson REPORT TECHNIQUE: CT of the chest WITHOUT intravenous contrast. Dose modulation, iterative reconstruction, and/or weight-based adjustment of the mA/kV was utilized to reduce the radiation dose to as low as reasonably achievable. INDICATION: 64-year-old man with hepatocellular carcinoma. COMPARISON: Chest CT 12/30/2018 and 07/08/2018. FINDINGS: ABSENCE OF INTRAVENOUS CONTRAST DECREASES SENSITIVITY FOR DETECTION OF FOCAL LESIONS AND VASCULAR PATHOLOGY. LINES/TUBES: None. LUNGS AND AIRWAYS: Central airways are patent. No new consolidation or pulmonary nodule. Unchanged 2 mm micronodule in the left lower lobe (axial lung window series image 37). PLEURA: The pleural spaces are clear. HEART AND MEDIASTINUM: The visualized thyroid gland is normal. No significant mediastinal, hilar, or axillary lymphadenopathy. The heart and pericardium are within normal limits. SOFT TISSUESAND BONES: Unremarkable. UPPER ABDOMEN: Please refer to abdomen MRI report from same date for further details. IMPRESSION:Unchanged nonspecific 2 mm micronodule in the left lower lobe since 07/08/2018. Signed: Lovely Velasco MDReport Verified Date/Time: 03/16/2019 14:02:46 Reading Location: [address] Radiology Reading Room [facility] [id number] 13:43:00 Test Item Value Reference Range Comments SODIUM (BEAKER) (test 137 meq/L 136-145 fjfw=067) POTASSIUM (BEAKER) (test 4.1 meq/L 3.5-5.1 ptlt=690) CHLORIDE (BEAKER) (test 107 meq/L 98-107 llyh=746) CO2 (BEAKER) (test 23 meq/L 22-29 npgu=644) BLOOD UREA NITROGEN 17 mg/dL 7-21 (BEAKER) (test nujo=819) CREATININE (BEAKER) (test 0.77 mg/dL 0.57-1.25 ejys=566) GLUCOSE RANDOM (BEAKER) 104 mg/dL 70-105 (test bkvx=002) CALCIUM (BEAKER) (test 9.6 mg/dL 8.4-10.2 lafz=083) EGFR (BEAKER) (test 102 mL/min/1.73 sq m ESTIMATED GFR IS NOT plrt=3189) ACCURATE CREATININE CLEARANCE IN PREDICTING GLOMERULAR FILTRATION RATE. ESTIMATED GFR IS NOT APPLICABLE FOR DIALYSIS PATIENTS. HEPATIC FUNCTION [id number] 13:43:00 Test Item Value Reference Range Comments TOTAL PROTEIN (BEAKER) (test oxqp=660) 7.3 gm/dL 6.0-8.3 ALBUMIN (BEAKER) (test sjnr=1953) 4.6 g/dL 3.5-5.0 BILIRUBIN TOTAL (BEAKER) (test yere=613) 1.3 mg/dL 0.2-1.2 BILIRUBIN DIRECT (BEAKER) (test rtty=914) 0.5 mg/dL 0.1-0.5 ALKALINE PHOSPHATASE (BEAKER) (test ptqb=009) 54 U/L 40-150 AST (SGOT) (BEAKER) (test jyph=795) 25 U/L 5-34 ALT (SGPT) (BEAKER) (test laxg=005) 40 U/L 6-55 Specimen slightly lipemicPROTHROMBIN [id number] 13:36:00 Test Item Value Reference Range Comments PROTIME (BEAKER) (test hphm=637) 13.8 seconds 11.9-14.2 INR (BEAKER) (test gicv=782) 1.1 <=5.9 Effective 01/20/2019: PT Reference Range ChangeNew: 11.9-14.2 Previous: 11.7- 14.7RECOMMENDED COUMADIN/WARFARIN INR THERAPY RANGESSTANDARD DOSE: 2.0-3.0 Includes: PROPHYLAXIS for venous thrombosis, systemic embolization; TREATMENT for venous thrombosis and/or pulmonary embolus.HIGH RISK: Target INR is2.5-3.5 for patients wiht mechanical heart valves.CBC W/PLT COUNT & AUTO [id number] 13:26:00 Test Item Value Reference Range Comments WHITE BLOOD CELL COUNT (BEAKER) (test wmgl=681) 6.8 K/ L 3.5-10.5 RED BLOOD CELL COUNT (BEAKER) (test fxwa=457) 5.55 M/ L 4.63-6.08 HEMOGLOBIN (BEAKER) (test gbte=050) 17.4 GM/DL 13.7-17.5 HEMATOCRIT (BEAKER) (test rthy=609) 51.2 % 40.1-51.0 MEAN CORPUSCULAR VOLUME (BEAKER) (test tqze=915) 92.3 fL 79.0-92.2 MEAN CORPUSCULAR HEMOGLOBIN (BEAKER) (test 31.4 pg 25.7-32.2 mtrg=250) MEAN CORPUSCULAR HEMOGLOBIN CONC (BEAKER) (test 34.0 GM/DL 32.3-36.5 inzz=808) RED CELL DISTRIBUTION WIDTH (BEAKER) (test 13.2 % 11.6-14.4 oqql=775) PLATELET COUNT (BEAKER) (test zqdz=161) 112 K/CU MM 150-450 MEAN PLATELET VOLUME (BEAKER) (test csdk=451) 11.3 fL 9.4-12.4 NUCLEATED RED BLOOD CELLS (BEAKER) (test 0 /100 WBC 0-0 iyto=820) NEUTROPHILS RELATIVE PERCENT (BEAKER) (test 55 % unzk=516) LYMPHOCYTES RELATIVE PERCENT (BEAKER) (test 40 % nlds=115) MONOCYTES RELATIVE PERCENT (BEAKER) (test 5 % odye=171) EOSINOPHILS RELATIVE PERCENT (BEAKER) (test 0 % cylv=734) BASOPHILS RELATIVE PERCENT (BEAKER) (test 0 % fnil=596) NEUTROPHILS ABSOLUTE COUNT (BEAKER) (test 3.74 K/ L 1.78-5.38 frek=102) LYMPHOCYTES ABSOLUTE COUNT (BEAKER) (test 2.69 K/ L 1.32-3.57 wedm=531) MONOCYTES ABSOLUTE COUNT (BEAKER) (test 0.34 K/ L 0.30-0.82 meob=747) EOSINOPHILS ABSOLUTE COUNT (BEAKER) (test 0.00 K/ L 0.04-0.54 lfsn=529) BASOPHILS ABSOLUTE COUNT (BEAKER) (test 0.03 K/ L 0.01-0.08 shpv=656) IMMATURE GRANULOCYTES-RELATIVE PERCENT (BEAKER) 0 % 0-1 (test lcpc=3566) [id number] 11:19:00 Test Item Value Reference Range Comments POC-CREATININE (BEAKER) 0.8 mg/dL 0.6-1.3 TESTED AT [facility] [address] (test doky=4735) [facility] [address] POC-EGFR (BEAKER) (test 98 mL/min/1.73M2 ckfj=7865) CT, CHEST, WITHOUT [id number] 17:09:00Referring: Dr. Baltazar Olson REPORT CT of the chest, without contrast, 12/30/2018. History: HCC.Cirrhosis. Comparison: 07/08/2018. Technique: Multidetector CT scanning of the chest was performed from the level of the thoracic inlet to the upper abdomen without IV or oral contrast. This examination was performed in accordance with a departmental dose optimization program which includes automatedexposure control, adjustment of the mA and/or kV according to patient size, and use of iterative reconstruction techniques. Discussion: The heart, aorta, and pulmonary vessels are normal in size. There is no axillary or mediastinal adenopathy. The central airways are patent. The pleura and lungsare normal in appearance. There is no evidence of consolidation or pleural effusion. The visualizedupper abdomen demonstrates cirrhotic liver morphology, spinal megaly and cholecystectomy. There is aleft adrenal lesion, incompletely characterized but unchanged from previous. No worrisome skeletal findings. IMPRESSION:No evidence for intrathoracic metastatic disease.. Signed: Srinivasan Gil Verified Date/Time: 12/30/2018 17:09:47 Reading Location: [address] Radiology Reading Room MR, ABDOMEN, [id number] 14:37:00Referring : Dr. Baltazar Isbell Abdominal VesselsFINAL REPORT MRI of the abdomen dated November 27, 2018 Comparison: August 21, 2018 Comment: Multiplanar T1 and T2-weighted images of the abdomen, postcontrast axial and coronal T1-weighted images of the abdomen were obtained. Liver is is cirrhotic in appearance with irregular margin. There is heterogeneous enhancement in the segments 6 and 7 of liver. No suspicious mass is present in the liver. Spleen is enlarged measuring approximately 15.24 x 6.8 x 14.8 cm. The splenic, superior mesenteric, portal, and hepatic veins are patent. Main portal vein measures 20 mm in diameter. Pancreas and right adrenal are unremarkable. A 2.8 x 3.3 cm mass is seen in the left adrenal. There is signal drop in the left adrenal on the out of phase examination as compared to that of in phase examination. The findings are suggestive of adrenal adenoma. Both kidneys are normal in size and functioning with prompt excretion. The visualized small and large bowel are unremarkable. No adenopathy is seen in the abdomen. IMPRESSION: 1. Cirrhosis with splenomegaly and portal hypertension.2. No suspicioushepatic mass.3. Left adrenal adenoma. Signed: Nieves Farris Verified Date/Time: 11/27/2018 14:37:40 Reading Location: [facility] B1 C013Y CT Body Reading Room ALPHA FETOPROTEIN (AFP), TUMOR [id number] 14:36:00 Test Item Value Reference Range Comments ALPHA-FETOPROTEIN (BEAKER) (test yqpf=4303) 3.5 ng/mL <10.0 BASIC METABOLIC [id number] 14:17:00 Test Item Value Reference Range Comments SODIUM (BEAKER) (test 140 meq/L 136-145 ekgi=514) POTASSIUM (BEAKER) (test 4.0 meq/L 3.5-5.1 Specimen slightly ncov=413) hemolyzed CHLORIDE (BEAKER) (test 109 meq/L 98-107 gvoa=320) CO2 (BEAKER) (test 21 meq/L 22-29 tbto=009) BLOOD UREA NITROGEN 16 mg/dL 7-21 (BEAKER) (test dulg=099) CREATININE (BEAKER) (test 0.70 mg/dL 0.57-1.25 Specimen slightly smsc=971) hemolyzed GLUCOSE RANDOM (BEAKER) 101 mg/dL 70-105 (test bjhw=946) CALCIUM (BEAKER) (test 9.9 mg/dL 8.4-10.2 nlqu=667) EGFR (BEAKER) (test 115 mL/min/1.73 sq m ESTIMATED GFR IS NOT rhvu=2729) ACCURATE CREATININE CLEARANCE IN PREDICTING GLOMERULAR FILTRATION RATE. ESTIMATED GFR IS NOT APPLICABLE FOR DIALYSIS PATIENTS. HEPATIC FUNCTION [id number] 14:17:00 Test Item Value Reference Range Comments TOTAL PROTEIN (BEAKER) (test 6.9 gm/dL 6.0-8.3 Specimen slightly hemolyzed grop=676) ALBUMIN (BEAKER) (test 4.4 g/dL 3.5-5.0 Specimen slightly hemolyzed ykgf=0816) BILIRUBIN TOTAL (BEAKER) (test 1.4 mg/dL 0.2-1.2 Specimen slightly hemolyzed dntf=853) BILIRUBIN DIRECT (BEAKER) (test 0.6 mg/dL 0.1-0.5 Specimen slightly hemolyzed nxbe=044) ALKALINE PHOSPHATASE (BEAKER) 50 U/L 40-150 (test gpex=090) AST (SGOT) (BEAKER) (test 30 U/L 5-34 Specimen slightly hemolyzed dtgi=820) ALT (SGPT) (BEAKER) (test 39 U/L 6-55 Specimen slightly hemolyzed dcnb=574) PROTHROMBIN [id number] 14:14:00 Test Item Value Reference Range Comments PROTIME (BEAKER) (test fspp=435) 14.3 seconds 11.7-14.7 INR (BEAKER) (test rcxb=569) 1.1 <=5.9 RECOMMENDED COUMADIN/WARFARIN INR THERAPY RANGESSTANDARD DOSE: 2.0 - 3.0 Includes: PROPHYLAXIS forvenous thrombosis, systemic embolization; TREATMENT for venous thrombosis and/or pulmonary embolus.HIGH RISK: Target INR is 2.5-3.5 for patients with mechanical heart valves.BLOOD GAS, [id number] 13:54:00 Test Item Value Reference Range Comments PH ARTERIAL (BEAKER) (test yzyu=992) 7.45 7.35-7.45 PCO2 ARTERIAL (BEAKER) (test whij=202) 32 mmHg 35-45 PO2 ARTERIAL (BEAKER) (test pwmp=373) 104 mmHg 80-90 O2 SATURATION ARTERIAL (BEAKER) (test kncy=592) 98.0 % 96.0-97.0 HCO3 ARTERIAL (BEAKER) (test ugmf=721) 22 mmol/L 21-29 BASE EXCESS ARTERIAL (BEAKER) (test lxbj=528) -1.2 mmol/L -2.0-3.0 PATIENT TEMPERATURE (BEAKER) (test ylhd=8260) 37.0 C FIO2 (BEAKER) (test sdbd=7185) 21.0 % CBC W/PLT COUNT & AUTO [id number] 13:52:00 Test Item Value Reference Range Comments WHITE BLOOD CELL COUNT (BEAKER) (test ojoh=763) 7.5 K/ L 3.5-10.5 RED BLOOD CELL COUNT (BEAKER) (test ydzn=421) 5.30 M/ L 4.63-6.08 HEMOGLOBIN (BEAKER) (test hrsc=614) 16.7 GM/DL 13.7-17.5 HEMATOCRIT (BEAKER) (test amzv=725) 49.7 % 40.1-51.0 MEAN CORPUSCULAR VOLUME (BEAKER) (test xiqu=256) 93.8 fL 79.0-92.2 MEAN CORPUSCULAR HEMOGLOBIN (BEAKER) (test 31.5 pg 25.7-32.2 tcku=346) MEAN CORPUSCULAR HEMOGLOBIN CONC (BEAKER) (test 33.6 GM/DL 32.3-36.5 kyen=328) RED CELL DISTRIBUTION WIDTH (BEAKER) (test 13.3 % 11.6-14.4 vuma=786) PLATELET COUNT (BEAKER) (test taey=608) 106 K/CU MM 150-450 MEAN PLATELET VOLUME (BEAKER) (test kove=135) 12.3 fL 9.4-12.4 NUCLEATED RED BLOOD CELLS (BEAKER) (test 0 /100 WBC 0-0 yumr=801) NEUTROPHILS RELATIVE PERCENT (BEAKER) (test 68 % iusy=012) LYMPHOCYTES RELATIVE PERCENT (BEAKER) (test 26 % kdzg=906) MONOCYTES RELATIVE PERCENT (BEAKER) (test 6 % vbuz=304) EOSINOPHILS RELATIVE PERCENT (BEAKER) (test 0 % tdto=511) BASOPHILS RELATIVE PERCENT (BEAKER) (test 0 % ntth=970) NEUTROPHILS ABSOLUTE COUNT (BEAKER) (test 5.06 K/ L 1.78-5.38 lshb=876) LYMPHOCYTES ABSOLUTE COUNT (BEAKER) (test 1.93 K/ L 1.32-3.57 ytto=348) MONOCYTES ABSOLUTE COUNT (BEAKER) (test 0.46 K/ L 0.30-0.82 wuya=084) EOSINOPHILS ABSOLUTE COUNT (BEAKER) (test 0.00 K/ L 0.04-0.54 rgja=210) BASOPHILS ABSOLUTE COUNT (BEAKER) (test 0.02 K/ L 0.01-0.08 qpfd=468) IMMATURE GRANULOCYTES-RELATIVE PERCENT (BEAKER) 0 % 0-1 (test ranl=8160) [id number] 11:43:00 Test Item Value Reference Range Comments POC-CREATININE (BEAKER) 0.7 mg/dL 0.6-1.3 TESTED AT [facility] 6720 (test pzcc=5505) [facility] [address] POC-EGFR (BEAKER) (test 115 mL/min/1.73M2 kvzo=4888) BASIC METABOLIC [id number] 07:45:00 Test Item Value Reference Range Comments SODIUM (BEAKER) (test 140 meq/L 136-145 njsp=578) POTASSIUM (BEAKER) (test 3.9 meq/L 3.5-5.1 jhik=112) CHLORIDE (BEAKER) (test 107 meq/L 98-107 krfh=613) CO2 (BEAKER) (test 26 meq/L 22-29 femp=669) BLOOD UREA NITROGEN 16 mg/dL 7-21 (BEAKER) (test guft=867) CREATININE (BEAKER) (test 0.72 mg/dL 0.57-1.25 sdiq=116) GLUCOSE RANDOM (BEAKER) 101 mg/dL 70-105 (test hhpn=353) CALCIUM (BEAKER) (test 10.8 mg/dL 8.4-10.2 fydp=047) EGFR (BEAKER) (test 111 mL/min/1.73 sq m ESTIMATED GFR IS NOT jkiv=1179) ACCURATE CREATININE CLEARANCE IN PREDICTING GLOMERULAR FILTRATION RATE. ESTIMATED GFR IS NOT APPLICABLE FOR DIALYSIS PATIENTS. PT/[id number] 07:43:00 Test Item Value Reference Range Comments PROTIME (BEAKER) (test nfff=063) 15.6 seconds 11.7-14.7 INR (BEAKER) (test srka=674) 1.2 <=5.9 PARTIAL THROMBOPLASTIN TIME (BEAKER) (test 33.9 seconds 22.5-36.0 jizg=136) RECOMMENDED COUMADIN/WARFARIN INR THERAPY RANGESSTANDARD DOSE: 2.0 - 3.0 Includes: PROPHYLAXIS forvenous thrombosis, systemic embolization; TREATMENT for venous thrombosis and/or pulmonary embolus.HIGH RISK: Target INR is 2.5-3.5 for patients with mechanical heart valves.CBC W/PLT COUNT & AUTO [id number] 07:29:00 Test Item Value Reference Range Comments WHITE BLOOD CELL COUNT (BEAKER) (test abgz=651) 6.2 K/ L 3.5-10.5 RED BLOOD CELL COUNT (BEAKER) (test qjwt=453) 5.35 M/ L 4.63-6.08 HEMOGLOBIN (BEAKER) (test pnaa=399) 16.6 GM/DL 13.7-17.5 HEMATOCRIT (BEAKER) (test qvhp=903) 50.2 % 40.1-51.0 MEAN CORPUSCULAR VOLUME (BEAKER) (test uqnd=979) 93.8 fL 79.0-92.2 MEAN CORPUSCULAR HEMOGLOBIN (BEAKER) (test 31.0 pg 25.7-32.2 psyd=743) MEAN CORPUSCULAR HEMOGLOBIN CONC (BEAKER) (test 33.1 GM/DL 32.3-36.5 bmgr=903) RED CELL DISTRIBUTION WIDTH (BEAKER) (test 12.9 % 11.6-14.4 porz=519) PLATELET COUNT (BEAKER) (test knkx=800) 100 K/CU MM 150-450 MEAN PLATELET VOLUME (BEAKER) (test gmzm=585) 11.4 fL 9.4-12.4 NUCLEATED RED BLOOD CELLS (BEAKER) (test 0 /100 WBC 0-0 rxwd=997) NEUTROPHILS RELATIVE PERCENT (BEAKER) (test 57 % voeu=879) LYMPHOCYTES RELATIVE PERCENT (BEAKER) (test 37 % jsxj=493) MONOCYTES RELATIVE PERCENT (BEAKER) (test 6 % rjhc=150) EOSINOPHILS RELATIVE PERCENT (BEAKER) (test 0 % ydot=888) BASOPHILS RELATIVE PERCENT (BEAKER) (test 0 % artn=363) NEUTROPHILS ABSOLUTE COUNT (BEAKER) (test 3.54 K/ L 1.78-5.38 hqwv=319) LYMPHOCYTES ABSOLUTE COUNT (BEAKER) (test 2.31 K/ L 1.32-3.57 tvmj=016) MONOCYTES ABSOLUTE COUNT (BEAKER) (test 0.35 K/ L 0.30-0.82 suoy=860) EOSINOPHILS ABSOLUTE COUNT (BEAKER) (test 0.00 K/ L 0.04-0.54 uksg=840) BASOPHILS ABSOLUTE COUNT (BEAKER) (test 0.02 K/ L 0.01-0.08 vgzf=035) IMMATURE GRANULOCYTES-RELATIVE PERCENT (BEAKER) 0 % 0-1 (test berz=1006) TISSUE [id number] 09:36:00Surgical Pathology Report Case: [id number] Authorizing Provider: Sepideh Fields MD Collected: 09/14/2018 1256 Ordering Location: [facility] Endoscopy Received: 09/14/2018 1553 Services Pathologist: Rosenda Rosenbaum MD Specimens: A) - Duodenum B) -Antrum C) - Large Intestine, Colon - Sigmoid A. DUODENUM BIOPSY- NO DIAGNOSTIC ALTERATIONB. STOMACH, ANTRUM, BIOPSY:- CHRONIC INACTIVE GASTRITIS, MINIMAL-MILD- NO INTESTINAL METAPLASIA, DYSPLASIA OR CARCINOMA SEEN- NO HELICOBACTER PYLORI LIKE ORGANISMS IDENTIFIED ON WARTHIN STARRY STAINC. COLON, SIGMOID COLON, BIOPSY- FOCAL HYPERPLASTIC CHANGE Signing Pathologist Direct Phone Line: [phone] signed by Rosenda Rosenbaum MD on 09/16/2018 at 9:36 [id number] X 3Hepatocellular carcinomaA. Duodenum; B. Antrum; C. Sigmoid colon The specimens are received in three containers of formalin all labeled with the patient's information. Part A labeled "duodednum" consists of four fragments of salgado tissue ranging from 0.1 to 0.2 cm, submitted A1. Part B labeled "antrum" consists of two 0.3 cm fragment of salgado tissue, submitted B1.Part C labeled "sigmoid colon" consists of a 0.4 cm fragment of salgado tissue, submitted C1. CG/pl PerformedThe interpretation of this case included the use of immunohistochemistry or special stains. Immunohistochemistry technical testing was performed at [facility], Pathology Laboratory where it was developed and its performance characteristics were determined. It has not been cleared or approved by the U.S. Food and Drug Administration. The FDA has determined that such clearance or approval is not necessary. The test is used for clinical purposes. It should not be regarded as investigational or for research. This laboratory is certified under the Clinical Laboratory Improvement Amendments of 1988 (CLIA-88) as qualified to perform high complexity clinical laboratory testing.POCT-GLUCOSE [id number] 09:57:00 Test Item Value Reference Range Comments POC-GLUCOSE METER (BEAKER) 118 mg/dL 70-110 TESTED AT [facility] [address] [facility] (test kpwx=8763) [facility] [address] MR, ABDOMEN, [id number] 16:25:00Referring: Dr. Baltazar Rivera for Exam:-&gt ;cirrhosis, hcc, screening for malignant neoplasmWhat isthe patient's sedation requirement?->No SedationFINAL REPORT TECHNIQUE: MRI of the abdomen WITHOUT and WITH intravenous contrast. INDICATION: 63-year-old man with hepatocellular carcinoma. COMPARISON: Abdomen MRI 05/22/2018. FINDINGS : LOWER THORAX: Unremarkable. LIVER: Cirrhotic morphology of the liver. Interval chemoembolization of a hepatocellular carcinoma in segment . The posttreatment cavity in segment measures 0.5x 1.3 cm with thin peripheral arterial enhancement and no corresponding washout or capsule. Patchy foci of arterial enhancement in the posterior right lobe without corresponding washout or capsule likely represent perfusional changes. Additional subcentimeter foci of arterial enhancement scattered throughout both lobes of the liver without corresponding washout or capsule are indeterminate and probably represent shunts.BILIARY: Prior cholecystectomy. No biliary ductal dilatation or filling defect.SPLEEN: The spleen is enlarged, measuring 16.1 cm in the craniocaudal dimension. Unchanged 0.8 cm T2 hyperintense lesion in the superior aspect of the spleen width suspected delayed enhancement is almost certainly a benign entity such as a hemangioma.PANCREAS: No focal masses or ductal dilatation. ADRENALS: Decreased signal intensity of the unchanged 3.9 x 3.3 cm left adrenal nodule on opposed phase imaging, consistent with an adenoma. Unremarkable right adrenal gland.KIDNEYS/URETERS: No hydronephrosisor solid mass lesions. PERITONEUM/RETROPERITONEUM: No free fluid.LYMPH NODES: Unchanged prominent periportal lymph nodes measure up to 1.6 cm.VESSELS: Portal system and hepatic veins are patent. Main portal vein measures 2 cm in diameter. GI TRACT: No distention or wall thickening. BONES AND SOFT TISSUES: Unremarkable. IMPRESSION :Cirrhosis with evidence of portal hypertension. Interval chemoembolization of a hepatocellular carcinoma in segment . Peripheral arterial enhancement around the posttreatment cavity likely represents posttreatment change, however residual disease cannot be entirely excluded. Unchanged prominent periportal lymph nodes. Unchanged left adrenal adenoma. Signed: Lovely Velasco MDReport Verified Date/Time: 08/21/2018 16:25:05 Reading Location: [address] Radiology Reading Room ALPHA FETOPROTEIN (AFP), TUMOR [id number] 15:00:00 Test Item Value Reference Range Comments ALPHA-FETOPROTEIN (BEAKER) (test pklk=0823) 4.0 ng/mL <10.0 COMPREHENSIVE METABOLIC [id number] 14:44:00 Test Item Value Reference Range Comments TOTAL PROTEIN (BEAKER) 7.4 gm/dL 6.0-8.3 (test wmdq=356) ALBUMIN (BEAKER) (test 4.6 g/dL 3.5-5.0 ktob=4618) ALKALINE PHOSPHATASE 54 U/L 40-150 (BEAKER) (test cmue=588) BILIRUBIN TOTAL (BEAKER) 1.8 mg/dL 0.2-1.2 (test wpkh=078) SODIUM (BEAKER) (test 137 meq/L 136-145 rotw=991) POTASSIUM (BEAKER) (test 3.9 meq/L 3.5-5.1 hsqz=240) CHLORIDE (BEAKER) (test 103 meq/L 98-107 wxfn=120) CO2 (BEAKER) (test 24 meq/L 22-29 hgtm=560) BLOOD UREA NITROGEN 14 mg/dL 7-21 (BEAKER) (test lyzh=940) CREATININE (BEAKER) (test 0.80 mg/dL 0.57-1.25 yroa=485) GLUCOSE RANDOM (BEAKER) 95 mg/dL 70-105 (test iclg=831) CALCIUM (BEAKER) (test 9.9 mg/dL 8.4-10.2 ifss=771) AST (SGOT) (BEAKER) (test 35 U/L 5-34 layr=465) ALT (SGPT) (BEAKER) (test 46 U/L 6-55 muve=601) EGFR (BEAKER) (test 98 mL/min/1.73 sq m ESTIMATED GFR IS NOT kmks=4585) ACCURATE CREATININE CLEARANCE IN PREDICTING GLOMERULAR FILTRATION RATE. ESTIMATED GFR IS NOT APPLICABLE FOR DIALYSIS PATIENTS. BILIRUBIN, [id number] 14:44:00 Test Item Value Reference Range Comments BILIRUBIN DIRECT (BEAKER) (test wmae=176) 0.7 mg/dL 0.1-0.5 PROTHROMBIN TIME/[id number] 14:36:00 Test Item Value Reference Range Comments PROTIME (BEAKER) (test ywij=951) 14.1 seconds 11.7-14.7 INR (BEAKER) (test fafp=510) 1.1 <=5.9 RECOMMENDED COUMADIN/WARFARIN INR THERAPY RANGESSTANDARD DOSE: 2.0 - 3.0 Includes: PROPHYLAXIS forvenous thrombosis, systemic embolization; TREATMENT for venous thrombosis and/or pulmonary embolus.HIGH RISK: Target INR is 2.5-3.5 for patients with mechanical heart valves.CBC W/PLT COUNT & AUTO [id number] 14:30:00 Test Item Value Reference Range Comments WHITE BLOOD CELL COUNT (BEAKER) (test mymx=332) 7.2 K/ L 3.5-10.5 RED BLOOD CELL COUNT (BEAKER) (test xnou=872) 5.45 M/ L 4.63-6.08 HEMOGLOBIN (BEAKER) (test xsxs=324) 16.8 GM/DL 13.7-17.5 HEMATOCRIT (BEAKER) (test ivbr=768) 50.8 % 40.1-51.0 MEAN CORPUSCULAR VOLUME (BEAKER) (test wobv=125) 93.2 fL 79.0-92.2 MEAN CORPUSCULAR HEMOGLOBIN (BEAKER) (test 30.8 pg 25.7-32.2 nmyv=615) MEAN CORPUSCULAR HEMOGLOBIN CONC (BEAKER) (test 33.1 GM/DL 32.3-36.5 udzc=121) RED CELL DISTRIBUTION WIDTH (BEAKER) (test 13.0 % 11.6-14.4 uhkg=515) PLATELET COUNT (BEAKER) (test rinf=245) 139 K/CU MM 150-450 MEAN PLATELET VOLUME (BEAKER) (test ocbe=322) 11.5 fL 9.4-12.4 NUCLEATED RED BLOOD CELLS (BEAKER) (test 0 /100 WBC 0-0 xnwx=749) NEUTROPHILS RELATIVE PERCENT (BEAKER) (test 55 % ilzd=831) LYMPHOCYTES RELATIVE PERCENT (BEAKER) (test 39 % npjo=572) MONOCYTES RELATIVE PERCENT (BEAKER) (test 6 % qxnz=108) EOSINOPHILS RELATIVE PERCENT (BEAKER) (test 0 % yzom=019) BASOPHILS RELATIVE PERCENT (BEAKER) (test 0 % phox=271) NEUTROPHILS ABSOLUTE COUNT (BEAKER) (test 3.92 K/ L 1.78-5.38 auvt=733) LYMPHOCYTES ABSOLUTE COUNT (BEAKER) (test 2.79 K/ L 1.32-3.57 aqsf=700) MONOCYTES ABSOLUTE COUNT (BEAKER) (test 0.44 K/ L 0.30-0.82 bphu=394) EOSINOPHILS ABSOLUTE COUNT (BEAKER) (test 0.00 K/ L 0.04-0.54 ddat=375) BASOPHILS ABSOLUTE COUNT (BEAKER) (test 0.03 K/ L 0.01-0.08 zofq=051) IMMATURE GRANULOCYTES-RELATIVE PERCENT (BEAKER) 0 % 0-1 (test baqr=2052) [id number] 12:58:00 Test Item Value Reference Range Comments POC-CREATININE (BEAKER) 0.7 mg/dL 0.6-1.3 TESTED AT [facility] [address] (test fqrl=0386) [facility] [address] POC-EGFR (BEAKER) (test 115 mL/min/1.73M2 qezy=3589) T SPOT [id number] 08:58:00 Test Item Value Reference Range Comments T-SPOT TB (BEAKER) (test mvdr=7704) Negative NEG CONTROL SPOT COUNT (BEAKER) (test emqd=3877) 0 PANEL A SPOT (BEAKER) (test ishc=0253) 0 PANEL B SPOT (BEAKER) (test utxh=4981) [address] (BEAKER) (test giej=5097) 0 SCAN RESULT (test zdtz=8310880) KOLIP-4-FBNJNMHCEQS QUANTITATION & [id number] 10:54:00 Test Item Value Reference Range Comments WVJRE-9-VHBHYLZQLPV (QUEST) (test drid=3831911) A-1 ANTITRYP PHENOTYP (QUEST) (test csjl=6453802) [id number] 04:58:00 Test Item Value Reference Range Comments T3 TOTAL (BEAKER) (test pwub=917) 98 ng/dL 48-159 BONE AND/OR JOINT IMAGING, WHOLE [id number] 17:21:00Referring: Dr. Baltazar Olson REPORT PROCEDURE: BONE SCAN, WHOLE BODY CPT CODE: 62134 INDICATION: osteosarcoma, negative chest CT, HCC, evaluate for bone metastases, pretransplant evaluation PROTOCOL: 20.8 mCi of Tc-99m MDP was injected intravenously. Whole body and selected spotimages were obtained approximately 3 hours later. FINDINGS: Increased tracer activity of the shoulders, wrists, sacroiliac joints, knees, and ankles. Foci of increased tracer activity of the mandible. Focus of increased tracer activity of the right first MTP joint.. IMPRESSION: 1. No pattern of metastatic disease.2. Periodontal disease.3. Degenerative joint changes.4. Increased tracer activity of the right first MTP joint suggests trauma. Images for comparison/correlation were CT chest ages 07/08/2018. Signed: Demetrius Garcia Verified Date/Time: 07/08/2018 17:21:19 Reading Location: [address] [place] [address] Reading Room RAD, BONE DENSITY [id number] 16:09:00Referring: Dr. Baltazar Rivera for Exam:->HCC, cirrhosis, OROURKE, pre transplant evaluationFINAL REPORT Bone mineral density study 2017. CLINICAL INDICATION: HCC,cirrhosis, nonalcoholic steatohepatitis, pretransplant evaluation COMPARISON: None available FINDINGS: Evaluation of the left and right femoral necks and lumbar spine was performed utilizing a bone densitometer. Data reflect young adult matched T-scores and age-matched Z scores. IMPRESSION: The left femoral neck bone mineral density is 0.923gm/cm2 , the T-score is -1.1, and the Z-score is -0.7. This is suggestive of osteopenia. The right femoral neck total bone mineral density is 0.908gm/cm2, theT-score is -1.2, and the Z-score is -0.8. This is suggestive of osteopenia. The lumbar spine total bone mineral density is 1.155gm/cm2, the T-score is -0.5 , and the Z-score is -0.9. Signed: Sharad Santacruz Verified Date/ Time: 07/08/2018 16:09:51 Reading Location: [facility] Mammo Reading Room RAD, CHEST, 2 [id number] 14:57:00Referring: Dr. Baltazar Rivera for Exam:->HCC, cirrhosis, OROURKE, pre transplant evaluationFINAL REPORT INDICATION: HCC, cirrhosis, OROURKE, pre transplant evaluation COMPARISON: None TECHNIQUE: Frontal and lateral views of the chest. FINDINGS: Lungs and pleura: Clear lungs. No effusion.Heart and mediastinum: Normal heart size. Unremarkable mediastinal contours.Osseous structures: No acute abnormality.Additional findings: None. IMPRESSION: No acute intrathoracic abnormality. Signed: JR Means Robert MDReport Verified Date/Time: 07/08/2018 14:57:23 Reading Location: [address] Neuro Reading Room RAD, MANDIBLE, MIN 4 [id number] 14:40:00Referring: Dr. Baltazar Rivera for Exam:->HCC, cirrhosis, OROURKE, pre transplant evaluationFINAL REPORT INDICATION: HCC, cirrhosis, OROURKE, pre transplant evaluation COMPARISON: None TECHNIQUE: Frontal, towns, oblique and submental vertex, and lateral views of the mandible. FINDINGS :The mandible is intact. The temporomandibular joints are normally aligned. There are noperiapical lucencies. IMPRESSION: Intact mandible. Signed: JR Miguelangel, Rui MDReport Verified Date/Time: 07/08/2018 14:40:03 Reading Location: [address] Neuro Reading Room Electronicallysigned by: RUI MEANS on 07/08/2018 02:40 [id number] 13:51:00 Test Item Value Reference Range Comments RPR SCREEN (CLARISSAAKER) (test tugr=018) Nonreactive Nonreactive CT, CHEST, WITHOUT [id number] 13:51:00Referring: Dr. Baltazar Olson REPORT TECHNIQUE: CT scan of the chest WITHOUT intravenous contrast. Dose modulation, iterative reconstruction, and/or weight- based adjustment of the mA/kV was utilized to reduce the radiation dose to as low as reasonably achievable. INDICATION: HCC, cirrhosis, Orourke, pretransplant evaluation. COMPARISON: Abdominal MRI from 05/22/2018. FINDINGS: ABSENCE OF INTRAVENOUS CONTRAST DECREASES SENSITIVITY FOR DETECTION OF FOCAL LESIONS AND VASCULAR PATHOLOGY. LINES/TUBES: None.LUNGS AND AIRWAYS: A left lower lobe pulmonary nodule measures 2 mm on image 39. PLEURA: The pleuralspaces are clear. HEART AND MEDIASTINUM: The visualized thyroid gland is normal. No significant mediastinal, hilar, or axillary lymphadenopathy. The heart and pericardium are within normal limits. SOFTTISSUES AND BONES: A lucent lesion with internal striations in T11 measures 0.8 cm and is most consistent with an intraosseous hemangioma. UPPER ABDOMEN: Nodular, cirrhotic liver. Calcified granulomas in the liver. Prior cholecystectomy. 14.5 cm splenomegaly. The left adrenal 3.8 cm adenoma is unchanged. IMPRESSION: 1.No definite metastatic disease in the chest. 2.A single left lower lobe pulmonary nodule measures 2 mm. Signed: Vega Yarbrough MDReport Verified Date/Time: 07/08/2018 13:51:19 Reading Location: [address] Radiology Reading Room CRYPTOCOCCAL [id number] 13:50:00 Test Item Value Reference Range Comments CRYPTOCOCCAL ANTIGEN, SERUM (BEAKER) (test Negative Negative, Interference ozrr=5355) CYTOMEGALOVIRUS ANTIBODY, [id number] 13:20:00 Test Item Value Reference Range Comments CYTOMEGALOVIRUS, IGG (BEAKER) (test uqbl=8002) Negative Negative, Equivocal CMV IgG Result Interpretation: </=0.8 Al Negative 0.9-1.0 Al Equivocal &gt ;/=1.1 Al PositiveCYTOMEGALOVIRUS ANTIBODY, [id number] 13:20:00 Test Item Value Reference Range Comments CYTOMEGALOVIRUS IGM ANTIBODY (BEAKER) (test Negative Negative, Equivocal cafn=2400) CMV IgM Result Interpretation: </=0.8 Al Negative 0.9-1.0 Al Equivocal >/=1.1 Al PositiveEBV ANTIBODY, [id number] 13:20:00 Test Item Value Reference Range Comments ELVER WELSH VIRAL CAPSID ANTIGEN IGG (BEAKER) Positive Negative, Equivocal (test ergd=4588) Elver Welsh Viral Capsid Antigen IgG Result Interpretation: </=0.8 Al Negative 0.9-1.0 Al Equivocal >/=1.1 Al PositiveEBV ANTIBODY, [id number] 13:20:00 Test Item Value Reference Range Comments ELVER WELSH VIRAL CAPSID ANTIGEN IGM (BEAKER) Negative Negative, Equivocal (test esoy=6462) Elver Welsh Viral Capsid Antigen IgM Result Interpretation: </=0.8 Al Negative 0.9-1.0 Al Equivocal >/=1.1 Al PositiveHEMOGLOBIN [id number] 12:45:00 Test Item Value Reference Range Comments HEMOGLOBIN A1C (BEAKER) (test tjoo=548) 7.0 % 4.3-6.1 [id number] 09:45:00 Test Item Value Reference Range Comments PROSTATE SPECIFIC ANTIGEN (BEAKER) (test yaxf=362) 0.3 ng/mL 0.0-4.0 CARCINOEMBRYONIC ANTIGEN (CEA)2018-07-08 09:45:00 Test Item Value Reference Range Comments CARCINOEMBRYONIC ANTIGEN (BEAKER) (test esrf=197) 1.4 ng/mL 0.0-5.0 HEPATITIS B CORE ANTIBODY, [id number] 09:45:00 Test Item Value Reference Range Comments HEPATITIS B CORE IGM ANTIBODY (BEAKER) (test Nonreactive Nonreactive oect=132) HEPATITIS A ANTIBODY, [id number] 09:45:00 Test Item Value Reference Range Comments HEPATITIS A IGM ANTIBODY (BEAKER) (test Nonreactive Nonreactive wkus=568) HIV-1 ANTIGEN WITH HIV-1/2 [id number] 09:45:00 Test Item Value Reference Range Comments HIV-1 ANTIGEN WITH HIV 1\\T\\2 ANTIBODY (2) Nonreactive Nonreactive (BEAKER) (test ayer=4263) URINALYSIS W/ [id number] 09:39:00 Test Item Value Reference Range Comments COLOR (BEAKER) (test yhkd=584) Yellow CLARITY (BEAKER) (test lrls=445) Clear SPECIFIC GRAVITY UA (BEAKER) (test jvky=098) 1.023 1.001-1.035 PH UA (BEAKER) (test jovp=493) 5.5 5.0-8.0 PROTEIN UA (BEAKER) (test jxns=696) Negative Negative GLUCOSE UA (BEAKER) (test olrn=187) Negative Negative KETONES UA (BEAKER) (test dsib=294) Negative Negative BILIRUBIN UA (BEAKER) (test gvze=682) Negative Negative BLOOD UA (BEAKER) (test qnkj=845) Negative Negative NITRITE UA (BEAKER) (test pufg=446) Negative Negative LEUKOCYTE ESTERASE UA (BEAKER) (test ykmz=169) Negative Negative UROBILINOGEN UA (BEAKER) (test tkpp=562) 0.2 mg/dL 0.2-1.0 RBC UA (BEAKER) (test yvbj=400) < /HPF WBC UA (BEAKER) (test bjsk=716) 1 /HPF MUCUS (BEAKER) (test xhrb=1533) Few SQUAMOUS EPITHELIAL (BEAKER) (test drug=214) < /HPF SOURCE(BEAKER) (test ziyt=9953) [id number] 09:36:00 Test Item Value Reference Range Comments T4 TOTAL (BEAKER) (test kber=772) 5.4 ug/dL 4.9-11.7 [id number] 09:36:00 Test Item Value Reference Range Comments THYROID STIMULATING HORMONE (BEAKER) (test 1.40 uIU/mL 0.35-4.94 hysg=112) VITAMIN D, [id number] 09:36:00 Test Item Value Reference Range Comments VITAMIN D 25-OH (BEAKER) (test xorr=0989) 24.4 ng/mL 6.6-49.9 Effective 06/04/2017: Reference Range ChangeNew: 6.6-49.9 ng/mL Previous: 13.0 -47.8 ng/mLRecommended Vitamin D Target Range: 30.0-40.0 ng/[id number] 09:28:00 Test Item Value Reference Range Comments TRANSFERRIN (BEAKER) (test aabi=485) 238 mg/dL 174-382 CALCIUM, [id number] 09:21:00 Test Item Value Reference Range Comments CALCIUM IONIZED (BEAKER) (test vjyk=686) 1.15 mmol/L 1.12-1.27 PH, BLOOD (BEAKER) (test selv=0192) 7.39 URIC [id number] 09:21:00 Test Item Value Reference Range Comments URIC ACID (BEAKER) (test cgtz=173) 5.7 mg/dL 2.6-7.2 [id number] 09:21:00 Test Item Value Reference Range Comments MAGNESIUM (BEAKER) (test ydna=547) 2.2 mg/dL 1.6-2.6 [id number] 09:21:00 Test Item Value Reference Range Comments PHOSPHORUS (BEAKER) (test gfqu=584) 3.8 mg/dL 2.3-4.7 COMPREHENSIVE METABOLIC [id number] 09:21:00 Test Item Value Reference Range Comments TOTAL PROTEIN (BEAKER) 7.1 gm/dL 6.0-8.3 (test uvmk=580) ALBUMIN (BEAKER) (test 4.6 g/dL 3.5-5.0 yghk=8098) ALKALINE PHOSPHATASE 51 U/L 40-150 (BEAKER) (test likw=581) BILIRUBIN TOTAL (BEAKER) 1.2 mg/dL 0.2-1.2 (test uakn=927) SODIUM (BEAKER) (test 142 meq/L 136-145 msdc=518) POTASSIUM (BEAKER) (test 3.7 meq/L 3.5-5.1 cgmw=013) CHLORIDE (BEAKER) (test 107 meq/L 98-107 deoz=603) CO2 (BEAKER) (test 27 meq/L 22-29 bynm=468) BLOOD UREA NITROGEN 15 mg/dL 7-21 (BEAKER) (test hqfw=672) CREATININE (BEAKER) (test 0.72 mg/dL 0.57-1.25 rkqh=108) GLUCOSE RANDOM (BEAKER) 93 mg/dL 70-105 (test xwze=030) CALCIUM (BEAKER) (test 9.6 mg/dL 8.4-10.2 njmw=647) AST (SGOT) (BEAKER) (test 23 U/L 5-34 mbyu=729) ALT (SGPT) (BEAKER) (test 49 U/L 6-55 gtln=248) EGFR (BEAKER) (test 111 mL/min/1.73 sq ESTIMATED GFR IS NOT tpta=1949) m ACCURATE CREATININE CLEARANCE IN PREDICTING GLOMERULAR FILTRATION RATE. ESTIMATED GFR IS NOT APPLICABLE FOR DIALYSIS PATIENTS. LIPID [id number] 09:21:00 Test Item Value Reference Range Comments TRIGLYCERIDES (BEAKER) (test bmep=583) 50 mg/dL CHOLESTEROL (BEAKER) (test hpuy=577) 87 mg/dL HDL CHOLESTEROL (BEAKER) (test kffv=016) 33 mg/dL LDL CHOLESTEROL CALCULATED (BEAKER) (test edvj=878) 44 mg/dL Triglyceride Reference Range: Low Risk <150 Borderline 150- 199 High Risk 200-499 Very High Risk >=500Cholesterol Reference Range: Low Risk <200 Borderline 200-239 High Risk > 240HDL Cholesterol Reference Range: Low Risk >=60 High Risk <40LDL Cholesterol Reference Range: Optimal <100 Near Optimal 100-129 Borderline 130-159 High 160-189 Very High >=190BILIRUBIN, [id number] 09:21:00 Test Item Value Reference Range Comments BILIRUBIN DIRECT (BEAKER) (test xgop=614) 0.6 mg/dL 0.1-0.5 GAMMA GLUTAMYL TRANSFERASE (GGT)2018-07-08 09:21:00 Test Item Value Reference Range Comments GAMMA GLUTAMYL TRANSFERASE (BEAKER) (test dkkf=402) 110 U/L 9-64 [id number] 09:18:00 Test Item Value Reference Range Comments ETHANOL (BEAKER) (test bpqp=604) < mg/dL <=10 [id number] 09:01:00 Test Item Value Reference Range Comments FIBRINOGEN LEVEL (BEAKER) (test dpjb=729) 303 mg/dl 225-434 [id number] 09:01:00 Test Item Value Reference Range Comments PARTIAL THROMBOPLASTIN TIME (BEAKER) (test 34.1 seconds 22.5-36.0 rvgv=703) PROTHROMBIN TIME/[id number] 09:00:00 Test Item Value Reference Range Comments PROTIME (BEAKER) (test rswj=733) 14.4 seconds 11.7-14.7 INR (BEAKER) (test hdbj=907) 1.1 <=5.9 RECOMMENDED COUMADIN/WARFARIN INR THERAPY RANGESSTANDARD DOSE: 2.0 - 3.0 Includes: PROPHYLAXIS forvenous thrombosis, systemic embolization; TREATMENT for venous thrombosis and/or pulmonary embolus.HIGH RISK: Target INR is 2.5-3.5 for patients with mechanical heart valves.CBC W/PLT COUNT & AUTO [id number] 08:54:00 Test Item Value Reference Range Comments WHITE BLOOD CELL COUNT (BEAKER) (test uoya=841) 6.6 K/ L 3.5-10.5 RED BLOOD CELL COUNT (BEAKER) (test alcz=309) 5.17 M/ L 4.63-6.08 HEMOGLOBIN (BEAKER) (test hpom=707) 16.1 GM/DL 13.7-17.5 HEMATOCRIT (BEAKER) (test pkmp=839) 49.0 % 40.1-51.0 MEAN CORPUSCULAR VOLUME (BEAKER) (test fdyb=562) 94.8 fL 79.0-92.2 MEAN CORPUSCULAR HEMOGLOBIN (BEAKER) (test 31.1 pg 25.7-32.2 cvaa=731) MEAN CORPUSCULAR HEMOGLOBIN CONC (BEAKER) (test 32.9 GM/DL 32.3-36.5 oeqr=353) RED CELL DISTRIBUTION WIDTH (BEAKER) (test 13.5 % 11.6-14.4 rjjy=451) PLATELET COUNT (BEAKER) (test zvqe=544) 112 K/CU MM 150-450 MEAN PLATELET VOLUME (BEAKER) (test pyfl=962) 12.0 fL 9.4-12.4 NUCLEATED RED BLOOD CELLS (BEAKER) (test 0 /100 WBC 0-0 bieg=436) NEUTROPHILS RELATIVE PERCENT (BEAKER) (test 65 % jecd=619) LYMPHOCYTES RELATIVE PERCENT (BEAKER) (test 29 % ufkn=939) MONOCYTES RELATIVE PERCENT (BEAKER) (test 5 % qznb=325) EOSINOPHILS RELATIVE PERCENT (BEAKER) (test 0 % omyj=958) BASOPHILS RELATIVE PERCENT (BEAKER) (test 0 % remh=278) NEUTROPHILS ABSOLUTE COUNT (BEAKER) (test 4.27 K/ L 1.78-5.38 falo=524) LYMPHOCYTES ABSOLUTE COUNT (BEAKER) (test 1.89 K/ L 1.32-3.57 qlyn=365) MONOCYTES ABSOLUTE COUNT (BEAKER) (test 0.35 K/ L 0.30-0.82 wlhx=239) EOSINOPHILS ABSOLUTE COUNT (BEAKER) (test 0.00 K/ L 0.04-0.54 cqtk=408) BASOPHILS ABSOLUTE COUNT (BEAKER) (test 0.02 K/ L 0.01-0.08 yxtb=928) IMMATURE GRANULOCYTES-RELATIVE PERCENT (BEAKER) 1 % 0-1 (test bxdp=0653) ANG, EMBOLIZATION, EXTENSIVE - [id number] 15:30:00Referring: Dr. Baltazar Rivera for Exam:->TACE for HCCFINAL REPORT Mesenteric Arteriography and Transarterial Chemoembolization ofthe Liver (TACE) Clinical History: Hypervascular Liver Mass(es) presumed Hepatocellular Carcinoma(s) Comparison: An MRI dated May 22, 2018Images presented: 66Conscious Sedation: 1 mg and fentanyl 50 mcg intravenously Cardiopulmonary monitoring was performed by the attending radiologist and theradiology nurse. Monitoring was performed with pulse oximetry, blood pressure measurements and ECG tracings.Physician Patient Time: 40 minutesModality: Fluoroscopy.Anesthesia : 2% lidocaine without epinephrineApproach: Right common femoral arteryCatheter positioned: Selectively in the superior mesenteric artery and super selectively in the replaced right hepatic artery and the branch supplying segments five and six.Contrast: Visipaque 270 120 ccEstimated Blood Loss: less than 10 ccFluoro time (in minutes): 10.8 minutes. 66 images Technique:After informed consent was obtained, the patient was prepped and draped in a sterile manner. Access was obtained via a percutaneous right common femoral arterial approach. An 18 gauge needle was placed into the artery and a .035 inch guide wire was advanced.A 5 Zimbabwean sheath was utilized. A 5 upper sorbian Miller catheter was placed selectively into the right superior mesenteric. A 3 Zimbabwean microcatheter was super selectively advanced coaxially into the replaced right hepatic artery and super selectively into the branch supplying segments five and six. Six DSAruns were performed. Superior Mesenteric Artery: This vessel gives rise to the replaced right hepatic artery. There is no evidence of hemodynamically significant stenosis or AV malformation. The portal vein is patent with hepatopedal flow Replaced right Hepatic Artery:This vessel supplies the right hepatic lobe. There is no evidence of a malformation. There is no evidence of significant arterial portal shunting. There is no evidence of hemodynamically significant stenosis A microcatheter was super selectively placed into the right lobe inferior subsegment vessel. Chemoembolization was performed with 75 cc of doxorubicin loaded into the CBD leads; 100 um particles There was no evidence of arterial portal shunting through the tumor. Post procedure arteriogram:No significant blush following the procedure The patient tolerated the procedure well and left the department in the same condition. Hemostasis was achieved by a vascular closure device. At the end of the procedure, the femoral sheath was withdrawn. Local hemostasis was achieved utilizing manual compression and the deployment of the Mynx device. A femoral arteriogram was to evaluate the lumen of the common femoral artery as well as the origin of the femoral profunda artery. The patient tolerated the procedure well without complication. Impression:Successful, uncomplicated transarterial chemoembolization of a rightlobe inferior subsegment lesion performed with conscious sedation. Signed: Cammie Hernandez MDReport Verified Date/Time: 2017 15:30:48 Reading Location: [place] [address] Angio Body Reading Room COMPREHENSIVE METABOLIC [id number] 11:22:00 Test Item Value Reference Range Comments TOTAL PROTEIN (BEAKER) 7.3 gm/dL 6.0-8.3 (test xghy=053) ALBUMIN (BEAKER) (test 4.6 g/dL 3.5-5.0 fqwn=7953) ALKALINE PHOSPHATASE 58 U/L 40-150 (BEAKER) (test iimx=922) BILIRUBIN TOTAL (BEAKER) 0.9 mg/dL 0.2-1.2 (test vemo=664) SODIUM (BEAKER) (test 138 meq/L 136-145 gbzp=945) POTASSIUM (BEAKER) (test 3.8 meq/L 3.5-5.1 divj=358) CHLORIDE (BEAKER) (test 105 meq/L 98-107 smvt=302) CO2 (BEAKER) (test 23 meq/L 22-29 ctwe=960) BLOOD UREA NITROGEN 13 mg/dL 7-21 (BEAKER) (test jwva=395) CREATININE (BEAKER) (test 0.79 mg/dL 0.57-1.25 xful=193) GLUCOSE RANDOM (BEAKER) 133 mg/dL 70-105 (test xaac=929) CALCIUM (BEAKER) (test 9.4 mg/dL 8.4-10.2 qfzs=305) AST (SGOT) (BEAKER) (test 26 U/L 5-34 vuqf=142) ALT (SGPT) (BEAKER) (test 47 U/L 6-55 sbfe=896) EGFR (BEAKER) (test 100 mL/min/1.73 sq ESTIMATED GFR IS NOT wlfq=0760) m ACCURATE CREATININE CLEARANCE IN PREDICTING GLOMERULAR FILTRATION RATE. ESTIMATED GFR IS NOT APPLICABLE FOR DIALYSIS PATIENTS. BILIRUBIN, [id number] 11:22:00 Test Item Value Reference Range Comments BILIRUBIN DIRECT (BEAKER) (test yruc=636) 0.5 mg/dL 0.1-0.5 [id number] 11:06:00 Test Item Value Reference Range Comments PROTIME (BEAKER) (test juax=975) 14.8 seconds 11.7-14.7 INR (BEAKER) (test gote=509) 1.2 <=5.9 PARTIAL THROMBOPLASTIN TIME (BEAKER) (test 34.9 seconds 22.5-36.0 gqfh=427) RECOMMENDED COUMADIN/WARFARIN INR THERAPY RANGESSTANDARD DOSE: 2.0 - 3.0 Includes: PROPHYLAXIS forvenous thrombosis, systemic embolization; TREATMENT for venous thrombosis and/or pulmonary embolus.HIGH RISK: Target INR is 2.5-3.5 for patients with mechanical heart valves.CBC W/PLT COUNT & AUTO [id number] 10:51:00 Test Item Value Reference Range Comments WHITE BLOOD CELL COUNT (BEAKER) (test xygi=145) 6.1 K/ L 3.5-10.5 RED BLOOD CELL COUNT (BEAKER) (test rkmk=348) 5.38 M/ L 4.63-6.08 HEMOGLOBIN (BEAKER) (test cnfm=744) 16.7 GM/DL 13.7-17.5 HEMATOCRIT (BEAKER) (test sldl=368) 49.3 % 40.1-51.0 MEAN CORPUSCULAR VOLUME (BEAKER) (test ckna=245) 91.6 fL 79.0-92.2 MEAN CORPUSCULAR HEMOGLOBIN (BEAKER) (test 31.0 pg 25.7-32.2 ihrp=360) MEAN CORPUSCULAR HEMOGLOBIN CONC (BEAKER) (test 33.9 GM/DL 32.3-36.5 nbzw=444) RED CELL DISTRIBUTION WIDTH (BEAKER) (test 13.4 % 11.6-14.4 gffm=039) PLATELET COUNT (BEAKER) (test cgwn=324) 107 K/CU MM 150-450 MEAN PLATELET VOLUME (BEAKER) (test rnhg=185) 11.7 fL 9.4-12.4 NUCLEATED RED BLOOD CELLS (BEAKER) (test 0 /100 WBC 0-0 drzh=331) NEUTROPHILS RELATIVE PERCENT (BEAKER) (test 60 % vclc=406) LYMPHOCYTES RELATIVE PERCENT (BEAKER) (test 34 % wfzd=495) MONOCYTES RELATIVE PERCENT (BEAKER) (test 6 % ycuu=907) EOSINOPHILS RELATIVE PERCENT (BEAKER) (test 0 % glgd=226) BASOPHILS RELATIVE PERCENT (BEAKER) (test 0 % qibl=620) NEUTROPHILS ABSOLUTE COUNT (BEAKER) (test 3.60 K/ L 1.78-5.38 mxrl=323) LYMPHOCYTES ABSOLUTE COUNT (BEAKER) (test 2.04 K/ L 1.32-3.57 alsl=621) MONOCYTES ABSOLUTE COUNT (BEAKER) (test 0.38 K/ L 0.30-0.82 foik=809) EOSINOPHILS ABSOLUTE COUNT (BEAKER) (test 0.00 K/ L 0.04-0.54 qwnk=390) BASOPHILS ABSOLUTE COUNT (BEAKER) (test 0.02 K/ L 0.01-0.08 nimu=888) IMMATURE GRANULOCYTES-RELATIVE PERCENT (BEAKER) 0 % 0-1 (test fjqy=4939) MR, ABDOMEN, [id number] 16:12:00Referring: Dr. Baltazar Howardalsplenomegaly, OROURKE, 2cm lesion, please evaluatesplenomegaly, OROURKE, 2cm lesion, please evaluateFINAL REPORT TECHNIQUE: MRI of the abdomen WITHOUT and WITH intravenous contrast. INDICATION: Portal hypertension, splenectomy, nonalcoholic steatohepatitis, 2 cm lesion, please evaluate. COMPARISON: None. FINDINGS: LOWER THORAX: Unremarkable. LIVER: Nodular, cirrhotic liver. The reticular increased T2 weighted signal is consistent with fibrosis. Diffuse fatty infiltration of the liver. An area of increased T2-weighted signal also arterially enhances in segment on arterialphase image 103. This measures 2.4 cm and has washout with a pseudocapsule. This corresponds to an area of sparing on out of phase imaging. There are several (greater than 10) other rounded areas of arterial phase hyperenhancement scattered throughout the liver which measure up to 6 mm on arterial phase image 75 and do not washout or from the pseudocapsule. These are indeterminate. A segment VIII lesion which measures 0.9 cm on arterial phase image 45 and segment eight lesion which measures 0.5 cm in segment VIII on arterial phase image 57 continue to enhance on delayed phase imaging and are most consistent with hemangiomas. BILIARY: Prior cholecystectomy. No biliary ductal dilatation or filling defect.SPLEEN: 15.7 cm splenomegaly. A nonenhancing area in the superior margin of the spleen measures0.9 cm and is most consistent with a splenic cyst. PANCREAS: No focal masses or ductal dilatation. ADRENALS: A left adrenal nodule measures 3.9 cm and is a signal on out of phase imaging, consistent with an adenoma. KIDNEYS/ URETERS: No hydronephrosis or solid mass lesions. PERITONEUM/RETROPERITONEUM: No free fluid.LYMPH NODES: No lymphadenopathy. Prominent but nonenlarged upper abdominal lymph nodes are likely reactive.VESSELS: The right hepatic artery is replaced from the superior mesenteric artery. GI TRACT: No distention or wall thickening. BONES AND SOFT TISSUES: Lesions in the spine which are hyperintense on T2-weighted imaging are most likely intraosseous hemangiomas. IMPRESSION: 1.A 2.4 cmlesion in segment is most consistent with hepatocellular carcinoma. 2.There are several other rounded areas of arterial phase hyperenhancement without definite washout which measure up to 6 mm precludes attention on follow-up imaging is recommended. 3.A left adrenal 3.9 cm nodule is consistent withan adenoma. Signed: Vega Yarbrough MDReport Verified Date/Time: 05/22/2018 16:12:49 Reading Location: [facility] C013Y CT Body Reading Room ANTI- NUCLEAR ANTIBODY (LORENA)2018-05-13 09:21:00 Test Item Value Reference Range Comments ANTI-NUCLEAR ANTIBODY (LORENA) (BEAKER) (test Negative Negative gnzb=907) Test performed by IFA method.Test performed by IFA method.HEPATITIS B SURFACE [id number] 21:01:00 Test Item Value Reference Range Comments HEPATITIS B SURFACE ANTIBODY (BEAKER) (test < mIU/mL <8.0 wjko=986) HEPATITIS B CORE ANTIBODY, [id number] 20:56:00 Test Item Value Reference Range Comments HEPATITIS B CORE TOTAL ANTIBODY (BEAKER) (test Nonreactive Nonreactive yucs=727) HEPATITIS A ANTIBODY, [id number] 20:56:00 Test Item Value Reference Range Comments HEPATITIS A IGG ANTIBODY (BEAKER) (test Nonreactive Nonreactive qhhm=4017) HEPATITIS B SURFACE [id number] 19:35:00 Test Item Value Reference Range Comments HEPATITIS B SURFACE ANTIGEN (2) (BEAKER) (test Nonreactive Nonreactive ivgs=8106) HEPATITIS C [id number] 19:35:00 Test Item Value Reference Range Comments HEPATITIS C ANTIBODY (BEAKER) (test ngxv=461) Nonreactive Nonreactive IMMUNOGLOBULIN G (IGG)2018-05-12 18:57:00 Test Item Value Reference Range Comments IMMUNOGLOBULIN G (IGG) (BEAKER) (test ibux=858) 963 mg/dL 540-1822 IRON, TIBC, % SAT. (WITHOUT FERRITIN)2018-05-12 18:57:00 Test Item Value Reference Range Comments IRON (BEAKER) (test blqk=756) 106 ug/dL 40-160 TOTAL IRON BINDING CAPACITY (BEAKER) (test 319 ug/dL 250-450 rahi=869) IRON % SATURATION (2) (BEAKER) (test tcyt=5393) 33 % 20-55 [id number] 18:40:00 Test Item Value Reference Range Comments FERRITIN (BEAKER) (test vosq=934) 961 ng/mL 5-275 ALPHA FETOPROTEIN (AFP), TUMOR [id number] 18:40:00 Test Item Value Reference Range Comments ALPHA-FETOPROTEIN (BEAKER) (test wneh=8882) 5.2 ng/mL <10.0 [id number] 18:31:00 Test Item Value Reference Range Comments ALPHA-1 ANTITRYPSIN (BEAKER) (test uvei=339) 127.70 mg/dL 90.00-200.00 GAMMA GLUTAMYL TRANSFERASE (GGT)2018-05-12 18:24:00 Test Item Value Reference Range Comments GAMMA GLUTAMYL TRANSFERASE (BEAKER) (test ngir=083) 105 U/L 9-64 BILIRUBIN, [id number] 18:24:00 Test Item Value Reference Range Comments BILIRUBIN DIRECT (BEAKER) (test ycrw=517) 0.5 mg/dL 0.1-0.5 COMPREHENSIVE METABOLIC [id number] 18:24:00 Test Item Value Reference Range Comments TOTAL PROTEIN (BEAKER) 7.6 gm/dL 6.0-8.3 (test laar=989) ALBUMIN (BEAKER) (test 4.8 g/dL 3.5-5.0 wuko=0419) ALKALINE PHOSPHATASE 60 U/L 40-150 (BEAKER) (test iece=344) BILIRUBIN TOTAL (BEAKER) 1.2 mg/dL 0.2-1.2 (test dnkk=583) SODIUM (BEAKER) (test 139 meq/L 136-145 lqim=395) POTASSIUM (BEAKER) (test 3.9 meq/L 3.5-5.1 zmjs=106) CHLORIDE (BEAKER) (test 104 meq/L 98-107 sdum=650) CO2 (BEAKER) (test 23 meq/L 22-29 cwrv=998) BLOOD UREA NITROGEN 14 mg/dL 7-21 (BEAKER) (test ddng=331) CREATININE (BEAKER) (test 0.77 mg/dL 0.57-1.25 ogea=348) GLUCOSE RANDOM (BEAKER) 120 mg/dL 70-105 (test kdlc=235) CALCIUM (BEAKER) (test 9.8 mg/dL 8.4-10.2 xivy=804) AST (SGOT) (BEAKER) (test 47 U/L 5-34 gvtx=219) ALT (SGPT) (BEAKER) (test 51 U/L 6-55 yxwu=556) EGFR (BEAKER) (test 103 mL/min/1.73 sq ESTIMATED GFR IS NOT ilva=9982) m ACCURATE CREATININE CLEARANCE IN PREDICTING GLOMERULAR FILTRATION RATE. ESTIMATED GFR IS NOT APPLICABLE FOR DIALYSIS PATIENTS. PROTHROMBIN [id number] 18:07:00 Test Item Value Reference Range Comments PROTIME (BEAKER) (test fito=760) 14.0 seconds 11.7-14.7 INR (BEAKER) (test jbzy=628) 1.1 <=5.9 RECOMMENDED COUMADIN/WARFARIN INR THERAPY RANGESSTANDARD DOSE: 2.0 - 3.0 Includes: PROPHYLAXIS forvenous thrombosis, systemic embolization; TREATMENT for venous thrombosis and/or pulmonary embolus.HIGH RISK: Target INR is 2.5-3.5 for patients with mechanical heart valves.CBC W/PLT COUNT & AUTO [id number] 17:56:00 Test Item Value Reference Range Comments WHITE BLOOD CELL COUNT (BEAKER) (test qyel=307) 8.0 K/ L 3.5-10.5 RED BLOOD CELL COUNT (BEAKER) (test kczv=688) 5.55 M/ L 4.63-6.08 HEMOGLOBIN (BEAKER) (test tbua=575) 17.2 GM/DL 13.7-17.5 HEMATOCRIT (BEAKER) (test rbyt=605) 51.2 % 40.1-51.0 MEAN CORPUSCULAR VOLUME (BEAKER) (test srzr=370) 92.3 fL 79.0-92.2 MEAN CORPUSCULAR HEMOGLOBIN (BEAKER) (test 31.0 pg 25.7-32.2 hxhw=849) MEAN CORPUSCULAR HEMOGLOBIN CONC (BEAKER) (test 33.6 GM/DL 32.3-36.5 anrr=702) RED CELL DISTRIBUTION WIDTH (BEAKER) (test 13.2 % 11.6-14.4 oegi=095) PLATELET COUNT (BEAKER) (test lovc=450) 136 K/CU MM 150-450 MEAN PLATELET VOLUME (BEAKER) (test vqmx=828) 12.9 fL 9.4-12.4 NUCLEATED RED BLOOD CELLS (BEAKER) (test 0 /100 WBC 0-0 xepi=731) NEUTROPHILS RELATIVE PERCENT (BEAKER) (test 61 % nvpe=846) LYMPHOCYTES RELATIVE PERCENT (BEAKER) (test 33 % ykmx=308) MONOCYTES RELATIVE PERCENT (BEAKER) (test 5 % vfqi=623) EOSINOPHILS RELATIVE PERCENT (BEAKER) (test 0 % wjqb=583) BASOPHILS RELATIVE PERCENT (BEAKER) (test 1 % ipim=385) NEUTROPHILS ABSOLUTE COUNT (BEAKER) (test 4.88 K/ L 1.78-5.38 lbmz=872) LYMPHOCYTES ABSOLUTE COUNT (BEAKER) (test 2.61 K/ L 1.32-3.57 lbfo=507) MONOCYTES ABSOLUTE COUNT (BEAKER) (test 0.40 K/ L 0.30-0.82 wgkh=246) EOSINOPHILS ABSOLUTE COUNT (BEAKER) (test 0.00 K/ L 0.04-0.54 jrwf=382) BASOPHILS ABSOLUTE COUNT (BEAKER) (test 0.04 K/ L 0.01-0.08 rjdp=243) IMMATURE GRANULOCYTES-RELATIVE PERCENT (BEAKER) 0 % 0-1 (test ixlr=4785)
[2019-09-20] MEDS ORDERED: NA CHLORIDE 0.9% 1,000 ML ONE (08:34)
[2019-09-20] MEDS ORDERED: FAMOTIDINE 20 MG/2 ML VIAL IV ONE (08:34)
[2019-09-20] MEDS ORDERED: ONDANSETRON 4 MG/2 ML VIAL ONE ×2 (08:34→09:39)
[2019-09-20 08:58] LABS: Absolute Lymphocytes (CBC) 1.8 K/uL (0.7-4.9); Basophils % 0.3 % (0-1.3); Hematocrit 44.4 % (39.6-49.0); Lymphocytes % 27.7 % (15.3-44.8); MPV 8.9 fL (7.6-11.3); RBC Red Blood Cell Count 4.72 M/uL (4.33-5.43)
[2019-09-20 09:03] LABS: Protime INR 1.15
[2019-09-20] MEDS ORDERED: NA CHLORIDE 0.9% 2,000 ML ONE (09:09)
--- NOTE | 2019-09-20 09:14 | RAD REPORT ---
EXAM DESCRIPTION: Lopez Single View09/20/2019 9:00 am CLINICAL HISTORY: Abdominal pain COMPARISON: May 2019 FINDINGS: The lungs appear clear of acute infiltrate. The heart is normal size IMPRESSION: No acute abnormalities displayed
[2019-09-20 09:26] LABS: Albumin 3.6 g/dL (3.4-5.0); Bilirubin Direct 0.5 mg/dL (0-0.2); Bilirubin Total 1.5 mg/dL (0.2-1.0); Magnesium 1.8 mg/dL (1.8-2.4); Protein, Total 6.1 g/dL (6.4-8.2); Troponin (Emerg Dept Use Only) 0.09 ng/mL (0.0-0.045)
--- NOTE | 2019-09-20 09:36 | ER ---
Nurse's Notes [facility] Name: Michael Kendrick Age: 64 yrs Sex: Male : 1955 Arrival Date: 09/20/2019 Time: 08:12 Bed 4 Private MD: Britton Larose V Diagnosis: Abdominal tenderness-sp liver transplant 07/30/19;Vomiting;Liver transplant status;Type 1 diabetes mellitus;Portal vein thrombosis Presentation: 09/20 08:19 Presenting complaint: Patient states: nauseous and vomiting for about 2 months, "feels em bloated", denies diarrhea, had liver transplant Aug.01, also reports abdominal pain, denies fever. Transition of care: patient was not received from another setting of care. Onset of symptoms was July 2019. Risk Assessment: Do you want to hurt yourself or someone else? Patient reports no desire to harm self or others. Initial Sepsis Screen: Does the patient meet any 2 criteria? No. Patient's initial sepsis screen is negative. Does the patient have a suspected source of infection? No. Patient's initial sepsis screen is negative. Care prior to arrival: None. 08:19 Method Of Arrival: Wheelchair em 08: Acuity: STEFANO 3 em Historical: - Allergies: No Known Allergies; em - Home Meds: amlodipine 10 mg tab 1 tab once daily [Active]; carvedilol 25 mg oral tab 1 tab 2 times em per day [Active]; aspirin 81 mg Oral chew 1 tab once daily [Active]; entecavir 0.5 mg oral tab 1 tab once daily [Active]; Insulin: Humulin N Sub-Q [Active]; Insulin: Novolin R Sub-Q [Active]; nystatin 500 million unit oral powd [Active]; Zofran (as hydrochloride) 8 mg Oral tab [Active]; pantoprazole 40 mg oral TbEC 1 tab once daily [Active]; prednisone 5 mg Oral tab [Active]; sucralfate 1 gram Oral tab [Active]; sulfamethoxazole-trimethoprim 800-160 mg Oral tab [Active]; tacrolimus 0.5 mg oral cap [Active]; ursodiol 300 mg Oral cap [Active]; valganciclovir 450 mg oral tab 2 tabs once daily [Active]; - PMHx: 08:27 Diabetes - IDDM; Hypertension; vertigo; em - PSHx: 08:27 liver transplant 2019; em - Immunization history:: Adult Immunizations up to date. - Coronavirus screen:: The patient has NOT traveled to [place], [place], or [place] in the past 14 days. Proceed with normal triage process as indicated. The patient has NOT had contact with known/suspected case of Coronavirus? Proceed with normal triage procedures. - Social history:: Smoking status: Patient denies any tobacco usage or history of. - Family history:: not pertinent. - Ebola Screening: : Patient negative for fever greater than or equal to 101.5 degrees Fahrenheit, and additional compatible Ebola Virus Disease symptoms Patient denies exposure to infectious person Patient denies travel to an Ebola-affected area in the 21 days before illness onset No symptoms or risks identified at this time. Screenin:27 Abuse screen: Denies threats or abuse. Nutritional screening: No deficits noted. bp Tuberculosis screening: No symptoms or risk factors identified. Fall Risk None identified. Assessment: 08:27 General: Appears in no apparent distress. uncomfortable, ill, Behavior is calm, em cooperative, Denies fever. Pain: Complains of pain in abdomen Pain currently is 7 out of 10 on a pain scale. Neuro: Level of Consciousness is awake, alert, obeys commands, Oriented to person, place, time, situation, Appropriate for age. Cardiovascular: Capillary refill < 3 seconds Patient's skin is warm and dry. Respiratory: Airway is patent Respiratory effort is even, unlabored, Respiratory pattern is regular, symmetrical. GI: Abdomen is flat, Bowel sounds present X 4 quads. Abd is soft X 4 quads Abdomen is tender to palpation X 4 quads. Reports bloating, nausea, vomiting, Patient currently denies diarrhea. Derm: Skin is intact, is healthy with good turgor, Skin is pink, warm \\T\\ dry. Musculoskeletal: Capillary refill < 3 seconds, Range of motion: intact in all extremities. 09:38 Reassessment: nausea is unchanged, provider notified, received new medication orders. em 10:15 Reassessment: Patient appears in no apparent distress at this time. nausea is em unchanged, provider notified. 10:52 Reassessment: Patient appears in no apparent distress at this time. Patient and/or em family updated on plan of care and expected duration. Pain level reassessed. Patient states feeling better. Patient states symptoms have improved. 11:04 Reassessment: unable to give report at this time. em 11:30 Reassessment: report given to RUDI Fulton at [facility], pending transportation. em 13:06 Reassessment: report given to EMS. em Vital Signs: 08:27 BP 152 / 97; Pulse 87; Resp 20; Temp 97.0; Pulse Ox 100% on R/A; Weight 102.06 kg; em Height 6 ft. 2 in. (187.96 cm); Pain 7/10; 10:26 BP 140 / 81; Pulse 91; Resp 18; Pulse Ox 99% on R/A; em 10:52 BP 157 / 91; Pulse 99; Resp 21; Pulse Ox 100% on R/A; Pain 3/10; em 08:27 Body Mass Index 28.89 (102.06 kg, 187.96 cm) em ED Course: 08:12 Patient arrived in ED. mr 08:13 Britton Larose MD is Private Physician. mr 08:13 Pawel Soto MD is Attending Physician. christel 08:13 Augusto Flores, RN is Primary Nurse. em 08:21 Triage completed. em 08:27 Arm band placed on. em 08:34 Radiology exam delayed due to lab results not completed at this time. (BUN/Creatinine). vm2 08:38 Patient has correct armband on for positive identification. Bed in low position. Call mh5 light in reach. Side rails up X 1. Adult w/ patient. Warm blanket given. manager monitoring on. Pulse ox on. NIBP on. 08:38 EKG done, by ED staff, reviewed by Pawel Soto MD. 5 09:02 XRAY Chest (1 view) In Process Unspecified. EDMS 09:48 CT Abd/Pelvis - IV Contrast Only In Process Unspecified. EDMS 09:57 Urine collected: clean catch specimen, clear. em 13:05 No provider procedures requiring assistance completed. Patient transferred, IV remains em in place. Administered Medications: 08:45 Drug: NS 0.9% 1000 ml Route: IV; Rate: 1 bolus; Site: left antecubital; bp 10:56 Follow up: IV Status: Completed infusion; IV Intake: 1000ml em 08:45 Drug: Zofran 4 mg Route: IVP; Site: left antecubital; bp 09:49 Follow up: Response: No adverse reaction; Nausea unchanged em 08:47 Drug: Pepcid 20 mg Route: IVP; Site: left antecubital; bp 09:48 Follow up: Response: No adverse reaction em 09:50 Drug: Zofran 4 mg Route: IVP; Site: left antecubital; em 10:18 Follow up: Response: No adverse reaction; Nausea unchanged em 10:17 Drug: NS 0.9% 1000 ml Route: IV; Rate: 125 ml/hr; Site: left antecubital; em 13:04 Follow up: IV Status: Infusion continued upon transfer em 10:17 Drug: NS 0.9% 1000 ml Route: IV; Rate: 1 bolus; Site: left antecubital; em 11:30 Follow up: IV Status: Completed infusion; IV Intake: 1000ml em 10:19 Not Given (Other Intervention Used): Phenergan 6.25 mg IVP once em 10:25 Drug: Phenergan 12.5 mg Route: IVP; Site: left antecubital; em 11:07 Follow up: Response: No adverse reaction; Nausea unchanged em 11:18 Drug: Phenergan 6.25 mg Route: IVP; Site: left antecubital; em 13:05 Follow up: Response: No adverse reaction em Intake: 10:56 IV: 1000ml; Total: 1000ml. em 11:30 IV: 1000ml; Total: 2000ml. em Output: 10:30 Urine: 500ml (Voided); Total: 500ml. em 11:07 Urine: 800ml (Voided); Total: 1300ml. em Outcome: 09:35 ER care complete, transfer ordered by MD. kearney 13:05 Transferred by ground EMS to [facility], Transfer form completed. em X-rays sent w/ patient. 13:05 Condition: good 13:05 Instructed on the need for transfer, Demonstrated understanding of instructions. 13:06 Patient left the ED. em Signatures: Dispatcher [employer] Pawel Goddard MD MD cha Rivera, Mary mr Munoz, Edgar, RN RN Patricia Herrmann [facility] Hodan Murillo [facility] Danilo Tucker RN RN bp
--- NOTE | 2019-09-20 09:36 | EDPHYS ---
Physician Documentation [facility] Name: Michael Kendrick Age: 64 yrs Sex: Male : 1955 Arrival Date: 09/20/2019 Time: 08:12 Bed 4 Private MD: Britton Larose V ED Physician Pawel Soto HPI: 09/20 08:33 This 64 yrs old Male presents to ER via Wheelchair with complaints of christel Dehydration. 08:33 This 64 yrs old Male presents to ER via Wheelchair with complaints of christel Dehydration. 08:33 The patient presents with abdominal pain in the upper abdomen, in the lower abdomen. christel 08:34 Onset: The symptoms/episode began/occurred 10 day(s) ago. The patient presents to the [facility] emergency department with nausea, vomiting, abdominal pain, of the right upper quadrant, left upper quadrant, right lower quadrant and left lower quadrant. Onset: The symptoms/episode began/occurred 10 day(s) ago. Possible causes: unknown. The symptoms are aggravated by nothing. The symptoms are alleviated by nothing. Historical: - Allergies: No Known Allergies; em - Home Meds: amlodipine 10 mg tab 1 tab once daily [Active]; carvedilol 25 mg oral tab 1 tab 2 times em per day [Active]; aspirin 81 mg Oral chew 1 tab once daily [Active]; entecavir 0.5 mg oral tab 1 tab once daily [Active]; Insulin: Humulin N Sub-Q [Active]; Insulin: Novolin R Sub-Q [Active]; nystatin 500 million unit oral powd [Active]; Zofran (as hydrochloride) 8 mg Oral tab [Active]; pantoprazole 40 mg oral TbEC 1 tab once daily [Active]; prednisone 5 mg Oral tab [Active]; sucralfate 1 gram Oral tab [Active]; sulfamethoxazole-trimethoprim 800-160 mg Oral tab [Active]; tacrolimus 0.5 mg oral cap [Active]; ursodiol 300 mg Oral cap [Active]; valganciclovir 450 mg oral tab 2 tabs once daily [Active]; - PMHx: Diabetes - IDDM; Hypertension; vertigo; em - PSHx: liver transplant 2019; em - Immunization history:: Adult Immunizations up to date. - Coronavirus screen:: The patient has NOT traveled to [place], [place], or [place] in the past 14 days. Proceed with normal triage process as indicated. The patient has NOT had contact with known/suspected case of Coronavirus? Proceed with normal triage procedures. - Social history:: Smoking status: Patient denies any tobacco usage or history of. - Family history:: not pertinent. - Ebola Screening: : Patient negative for fever greater than or equal to 101.5 degrees Fahrenheit, and additional compatible Ebola Virus Disease symptoms Patient denies exposure to infectious person Patient denies travel to an Ebola-affected area in the 21 days before illness onset No symptoms or risks identified at this time. ROS: 08:34 Constitutional: Negative for fever, chills, and weight loss, Eyes: Negative for injury, christel pain, redness, and discharge, ENT: Negative for injury, pain, and discharge, Neck: Negative for injury, pain, and swelling, Cardiovascular: Negative for chest pain, palpitations, and edema, Respiratory: Negative for shortness of breath, cough, wheezing, and pleuritic chest pain, Back: Negative for injury and pain, : Negative for injury, bleeding, discharge, and swelling, MS/Extremity: Negative for injury and deformity, Skin: Negative for injury, rash, and discoloration, Psych: Negative for depression, anxiety, suicide ideation, homicidal ideation, and hallucinations, Allergy/Immunology: Negative for hives, rash, and allergies, Endocrine: Negative for neck swelling, polydipsia, polyuria, polyphagia, and marked weight changes, Hematologic/Lymphatic: Negative for swollen nodes, abnormal bleeding, and unusual bruising. 08:34 Abdomen/GI: Positive for abdominal pain, of the right upper quadrant, left upper quadrant, right lower quadrant and left lower quadrant. 08:34 Neuro: Positive for weakness. Exam: 08:34 Head/Face: Normocephalic, atraumatic. Eyes: Pupils equal round and reactive to light, christel extra-ocular motions intact. Lids and lashes normal. Conjunctiva and sclera are non-icteric and not injected. Cornea within normal limits. Periorbital areas with no swelling, redness, or edema. ENT: Nares patent. No nasal discharge, no septal abnormalities noted. Tympanic membranes are normal and external auditory canals are clear. Oropharynx with no redness, swelling, or masses, exudates, or evidence of obstruction, uvula midline. Mucous membranes moist. Neck: Trachea midline, no thyromegaly or masses palpated, and no cervical lymphadenopathy. Supple, full range of motion without nuchal rigidity, or vertebral point tenderness. No Meningismus. Chest/axilla: Normal chest wall appearance and motion. Nontender with no deformity. No lesions are appreciated. Cardiovascular: Regular rate and rhythm with a normal S1 and S2. No gallops, murmurs, or rubs. Normal PMI, no JVD. No pulse deficits. Respiratory: Lungs have equal breath sounds bilaterally, clear to auscultation and percussion. No rales, rhonchi or wheezes noted. No increased work of breathing, no retractions or nasal flaring. Back: No spinal tenderness. No costovertebral tenderness. Full range of motion. Male : Normal genitalia with no discharge or lesions. Skin: Warm, dry with normal turgor. Normal color with no rashes, no lesions, and no evidence of cellulitis. MS/ Extremity: Pulses equal, no cyanosis. Neurovascular intact. Full, normal range of motion. Neuro: Awake and alert, GCS 15, oriented to person, place, time, and situation. Cranial nerves II-XII grossly intact. Motor strength 5/5 in all extremities. Sensory grossly intact. Cerebellar exam normal. Normal gait. Psych: Awake, alert, with orientation to person, place and time. Behavior, mood, and affect are within normal limits. 08:34 Constitutional: The patient appears in obvious distress, moderately distressed. 08:34 Abdomen/GI: Inspection: abdomen appears normal, Bowel sounds: normal, Palpation: moderate abdominal tenderness, in the right upper quadrant, left upper quadrant, right lower quadrant and left lower quadrant, Liver: no appreciated palpable abnormalities, Hernia: not appreciated. Vital Signs: 08:27 BP 152 / 97; Pulse 87; Resp 20; Temp 97.0; Pulse Ox 100% on R/A; Weight 102.06 kg; em Height 6 ft. 2 in. (187.96 cm); Pain 7/10; 10:26 BP 140 / 81; Pulse 91; Resp 18; Pulse Ox 99% on R/A; em 10:52 BP 157 / 91; Pulse 99; Resp 21; Pulse Ox 100% on R/A; Pain /10; em 08:27 Body Mass Index 28.89 (102.06 kg, 187.96 cm) em MDM: 08:13 Patient medically screened. [facility] 08:36 Data reviewed: vital signs, nurses notes, lab test result(s), EKG, radiologic studies, [facility] CT scan, plain films. 09/20 08:32 Order name: Basic Metabolic Panel; Complete Time: 09:32 [facility] 09/20 08:32 Order name: CBC with Diff; Complete Time: 09:32 [facility] 09/20 08:32 Order name: LFT's; Complete Time: 09:32 [facility] 09/20 08:32 Order name: Magnesium; Complete Time: 09:32 [facility] 09/20 08:32 Order name: NT PRO-BNP; Complete Time: 09:32 [facility] 09/20 08:32 Order name: PT-INR; Complete Time: 09:32 [facility] 09/20 08:32 Order name: Troponin (emerg Dept Use Only); Complete Time: 09:32 [facility] 09/20 08:32 Order name: XRAY Chest (1 view); Complete Time: 09:32 [facility] 09/20 08:32 Order name: Lipase; Complete Time: 09:32 [facility] 09/20 08:32 Order name: AMMONIA; Complete Time: 09:32 [facility] 09/20 08:32 Order name: Urine Culture [facility] 09/20 08:32 Order name: CT Abd/Pelvis - IV Contrast Only; Complete Time: 10:26 [facility] 09/20 10:00 Order name: Urine Dipstick--Ancillary (enter results); Complete Time: 11:11 09/20 08:32 Order name: EKG; Complete Time: 08:33 [facility] 09/20 08:32 Order name: Cardiac monitoring; Complete Time: 08:50 [facility] 09/20 08:32 Order name: EKG - Nurse/Tech; Complete Time: 08:50 [facility] 09/20 08:32 Order name: IV Saline Lock; Complete Time: 08:50 [facility] 09/20 08:32 Order name: Labs collected and sent; Complete Time: 08:50 [facility] 09/20 08:32 Order name: O2 Per Protocol; Complete Time: 08:50 [facility] 09/20 08:32 Order name: O2 Sat Monitoring; Complete Time: 09:57 [facility] 09/20 08:32 Order name: Urine Dipstick-Ancillary (obtain specimen); Complete Time: 09:50 christel Administered Medications: 08:45 Drug: NS 0.9% 1000 ml Route: IV; Rate: 1 bolus; Site: left antecubital; bp 10:56 Follow up: IV Status: Completed infusion; IV Intake: 1000ml em 08:45 Drug: Zofran 4 mg Route: IVP; Site: left antecubital; bp 09:49 Follow up: Response: No adverse reaction; Nausea unchanged em 08:47 Drug: Pepcid 20 mg Route: IVP; Site: left antecubital; bp 09:48 Follow up: Response: No adverse reaction em 09:50 Drug: Zofran 4 mg Route: IVP; Site: left antecubital; em 10:18 Follow up: Response: No adverse reaction; Nausea unchanged em 10:17 Drug: NS 0.9% 1000 ml Route: IV; Rate: 125 ml/hr; Site: left antecubital; em 13:04 Follow up: IV Status: Infusion continued upon transfer em 10:17 Drug: NS 0.9% 1000 ml Route: IV; Rate: 1 bolus; Site: left antecubital; em 11:30 Follow up: IV Status: Completed infusion; IV Intake: 1000ml em 10:19 Not Given (Other Intervention Used): Phenergan 6.25 mg IVP once em 10:25 Drug: Phenergan 12.5 mg Route: IVP; Site: left antecubital; em 11:07 Follow up: Response: No adverse reaction; Nausea unchanged em 11:18 Drug: Phenergan 6.25 mg Route: IVP; Site: left antecubital; em 13:05 Follow up: Response: No adverse reaction em Disposition: 09/20/19 09:[address] [facility]. Diagnosis are Abdominal tenderness - sp liver transplant 07/30/19, Vomiting, Liver transplant status, Type 1 diabetes mellitus, Portal vein thrombosis. - Reason for transfer: Higher level of care. - Accepting physician is [facility], [facility]. - Condition is Fair. - Problem is new. - Symptoms have improved. Signatures: Dispatcher [employer] Pawel Goddard MD MD cha Munoz, Edgar, RN RN Danilo Holland RN RN bp Corrections: (The following items were deleted from the chart) 09:35 09:35 09/20/2019 09:[address] [facility]. christel Diagnosis is Abdominal tenderness - sp liver transplant 07/30/19; Vomiting; Liver transplant status. Reason for transfer: Higher level of care. Accepting physician is [facility]. Condition is Fair. Problem is new. Symptoms have improved. christel 10:29 09:35 09/20/2019 09:[address] [facility]. christel Diagnosis is Abdominal tenderness - sp liver transplant 07/30/19; Vomiting; Liver transplant status; Type 1 diabetes mellitus. Reason for transfer: Higher level of care. Accepting physician is [facility]. Condition is Fair. Problem is new. Symptoms have improved. christel 13:06 10:29 09/20/2019 09:[address] [facility]. em Diagnosis is Abdominal tenderness - sp liver transplant 07/30/19; Vomiting; Liver transplant status; Type 1 diabetes mellitus; Portal vein thrombosis. Reason for transfer: Higher level of care. Accepting physician is [facility]. Condition is Fair. Problem is new. Symptoms have improved. christel
[2019-09-20] MEDS ORDERED: PROMETHAZINE INJ 25 MG/ML AMP ONE ×2 (09:39→11:16)
--- NOTE | 2019-09-20 10:07 | RAD REPORT ---
EXAM DESCRIPTION: CT - Abdomen Pelvis W Contrast - 09/20/2019 9:48 am CLINICAL HISTORY: Abdominal pain COMPARISON: 2011 TECHNIQUE: Computed axial tomography of the abdomen pelvis was obtained. 100 cc Isovue-300 was admin istered intravenously. Oral contrast was not requested which limits evaluation of bowel. All CT scans are performed using dose optimization technique as appropriate and may include automated exposure control or mA/KV adjustment according to patient size. FINDINGS: Postoperative changes of a hepatic transplant. Thrombus is present within the main portal vein and left portal vein. Several subcentimeter hepatic lesions are nonspecific. A 3.9 centimeter fluid collection abuts the left lobe of the liver. A small amount ascites is present within the abdomen and pelvis. The spleen, pancreas, right adrenal and kidneys are unremarkable. 3.9 cm left adrenal mass unchanged likely an adenoma. There is no evidence of diverticulitis. Small inguinal hernias contain fat IMPRESSION: Hepatic transplant. Thrombus within the portal vein. 3.9 centimeter fluid collection abuts the left lobe of the liver may represent a pseudocyst or subac tramaine hematoma. Given the thin wall probably does not represent an abscess. This could be monitored on a subsequent exam.
[2019-09-20 10:38] LABS: Urine Blood NEGATIVE (NEG); Urine Glucose NEGATIVE (NEG); Urine Protein NEGATIVE (NEG); Urine Specific Gravity 1.015 (1.005-1.030); Urine pH 7.5 (5.0-7.0)
--- NOTE | 2019-09-20 12:25 | EKG ---
Test Date: 2019-09-20 Test Time: 08:32:51 [address] Flusher Driver: TRINO MEASUREMENT RESULTS: Intervals: Rate: 84 RI: 132 QRSD: 78 QT: 374 QTc: 441 [place]: P: 28 RI: 132 QRS: -26 T: -48 INTERPRETIVE STATEMENTS: Normal sinus rhythm Septal infarct, age undetermined Possible Lateral infarct, age undetermined Abnormal ECG Compared to ECG 06/13/2012 11:15:14 Myocardial infarct finding now present Prolonged QT interval no longer present Electronically Signed On 09-20-19 12:24:34 ASSISTANT CREDIT MANAGER by Lorenzo Lau
[2019-09-20 13:56] VITALS: TEMP 97
[2019-09-20 14:00] VITALS: BP 157/91; O2SAT 100
== END 2019-09-20 13:06 | disposition short-term general hospital (02) ==
LOC: ER 08:10
DX: I81 Portal vein thrombosis (principal); R11.10 Vomiting, unspecified; E10.9 Type 1 diabetes mellitus without complications; Z94.4 Liver transplant status; I10 Essential (primary) hypertension; Z79.82 Long term (current) use of aspirin; Z79.4 Long term (current) use of insulin
CPT/HCPCS: 96361; 93005; 87088; 85025; 80048; 36415; 82140; 83735; 85610; 80076; 81003; 84484; 83690; 83880; 74177; 71045; 96375; 96374; 99285; Q9967; J2550 ×2; J7030 ×2; J2405 ×2; 87086